=== PATIENT | male | born 1950 | race Asian ===

== ENCOUNTER 2017-12-05 03:36 | Inpatient (IN) | payer MEDICARE, OTHER ==
[~2017-12-05] VITALS: Ht 165.1 cm; Wt 64.9 kg
[2017-12-05] VITALS (7 sets, daily range): BP systolic 117–169; BP diastolic 73–99
[~2017-12-05 03:36] MED LIST: AMBIEN5 MG ORAL; ASCORBIC ACID500 MG ORAL; ASPIR 8181 MG ORAL; ATIVAN1 MG ORAL; ATORVASTATIN CA40 MG ORAL; BACTROBAN CR1 APPLIC TOPIC; BISACODYL5 MG RECTAL; CLEOCIN HCL300 MG PO; CLONIDINE HCL0.1 MG PO; FERROUS SULFAT325 MG ORAL; FLEET ENEMA133 ML RECTAL; HEPARIN SO5000 UNIT2 SUBQ; INSULIN CHARG5 UNITS SUBQ; LEVEMIR FL100 UNIT/1 SUBQ; LEVOTHYROXINE25 MCG ORAL; LISINOPRIL20 MG ORAL; LISINOPRIL5 MG ORAL; METOPROLOL TART25 MG ORAL; MILK OF MA400 MG/51 ORAL; MULTIPLE VITAM1 EAC5 PO; NITROGLYCERIN0.4 MG SL; NOVOLOG100 UNIT/3 SUBQ; NOVOLOG100 UNITS1 SQ; NYSTATIN100000 UN1 ORAL; TYLENOL EXTRA500 MG ORAL
--- NOTE | 2017-12-05 03:51 | Emergency Room Report ---
History of Present Illness General Chief Complaint: Chest Pain Source: Patient, Medical Record, EMS Present Illness HPI This is a 67-year-old male with multiple medical problem, residing in a [facility]. He presents with chief complaint of coffee-ground emesis 3 and also with chest pain. He does have a history of CAD and gastritis. Onset for last 3 hours. No fever chills. No diarrhea. Pain is 7 out of 10. Localized to the epigastric area. The demented better. Nothing made it worse. Allergies: Coded Allergies: AMPICILLIN (Verified Allergy, Unknown, 12/02/15) CODEINE (Verified Allergy, Unknown, 12/02/15) NSAIDS (NON-STEROIDAL ANTI-INFLAMMA (Verified Allergy, Unknown, 12/02/15) PEANUT (Verified Allergy, Unknown, 12/02/15) PENICILLINS (Verified Allergy, Unknown, 12/02/15) Patient History Past Medical History: see triage record, old chart reviewed, HTN, CAD, psych hx Past Surgical History: other Pertinent Family History: none Social History: Denies: smoking Immunizations: other Reviewed Nursing Documentation: PMH: Agreed; PSxH: Agreed Nursing Documentation-PMH Hx Cardiac Problems: Yes - HYPERLIPIDEMIA,cad Hx Hypertension: Yes Hx Pacemaker: No - HYPOTHYROIDISM Hx COPD: Yes Hx Diabetes: Yes Hx Cancer: No Hx Gastrointestinal Problems: No - pancreatitis,anemia Hx Neurological Problems: No Hx Cerebrovascular Accident: Yes - subdural Hx Head Trauma: Yes - diffuse traumtic brain injury, 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 Review of Systems Eye: Denies: eye pain, blurred vision ENT: Denies: ear pain, nose congestion, throat swelling Respiratory: Denies: cough, shortness of breath Cardiovascular: Reports: chest pain; Denies: palpitations Gastrointestinal: Reports: abdominal pain, nausea, vomiting, hematemesis; Denies: diarrhea Musculoskeletal: Denies: back pain, joint pain Skin: Denies: rash Neurological: Denies: headache, numbness Endocrine: Denies: increased thirst, increased urine Hematologic/Lymphatic: Denies: easy bruising All Other Systems: negative except mentioned in HPI Physical Exam Vital Signs Date Time Temp Pulse Resp B/P (MAP) Pulse Ox O2 Delivery O2 Flow Rate FiO2 12/05/17 03:33 98.4 80 16 146/84 98 Nasal Cannula 2.0 98.4 vitals normal Sp02 EP Interpretation: reviewed, normal General Appearance: well appearing, no apparent distress, alert Head: normocephalic, atraumatic Eyes: bilateral eye PERRL, bilateral eye EOMI ENT: hearing grossly normal, normal pharynx Neck: full range of motion, supple, no meningismus Respiratory: chest non-tender, lungs clear, normal breath sounds Cardiovascular #1: regular rate, rhythm, no murmur Gastrointestinal: normal bowel sounds, non tender, no mass, no organomegaly, no bruit, non-distended Musculoskeletal: back normal, normal range of motion Psychiatric: mood/affect normal Skin: warm/dry Medical Decision Making Diagnostic Impression: Primary Impression: Chest pain Qualified Codes: R07.9 - Chest pain, unspecified Additional Impression: UGI bleed ER Course Patient presents with coffee-ground emesis. Most likely secondary to upper GI bleed from gastritis. This is from previous admission. No evidence of perforation. Chest pain is most likely secondary to vomiting. EKG unremarkable. First set of troponin negative. We'll admit for further workup. I contacted Dr. Ramirez and Capo for admission. Lab Results Impression labs unremarkable EKG Diagnostic Results Rate: normal Rhythm: NSR ST Segments: other - baseline tremors ASA given to the pt in ED: No - secondary to upper GI bleeding and allergy to NSAIDs Rhythm Strip Diag. Results Rhythm Strip Time: 04:30 EP Interpretation: yes Rate: 77 Rhythm: NSR, no PVC's, no ectopy Chest X-Ray Diagnostic Results Chest X-Ray Diagnostic Results : Chest X-Ray Ordered: Yes # of Views/Limited/Complete: 1 View Indication: Chest Pain EP Interpretation: Yes Interpretation: no consolidation, no effusion, no pneumothorax, no acute cardiopulmonary disease Impression: No acute disease Electronically Signed by: Ej Duncan MD Last Vital Signs Date Time Temp Pulse Resp B/P (MAP) Pulse Ox O2 Delivery O2 Flow Rate FiO2 12/05/17 03:33 98.4 80 16 146/84 98 Nasal Cannula 2.0 98.4 Status: improved Disposition: ADMITTED INPATIENT Condition: Serious EJ DUNCAN M.D. Dec 05, 2017 03:51
[2017-12-05 03:58] LABS: BASOPHILS % (AUTO) 0.9 % (0.0-2.0); HEMATOCRIT 37.3 % (42.0-52.0); HEMOGLOBIN 12.1 G/DL (14.2-18.0); LYMPHOCYTES % (AUTO) 27.5 % (20.0-45.0); MEAN CORPUSCULAR VOLUME 83 FL (80-99); MONOCYTES % (AUTO) 9.2 % (1.0-10.0); NEUTROPHILS % (AUTO) 54.4 % (45.0-75.0); PLATELET COUNT 235 K/UL (150-450); RED BLOOD COUNT 4.51 M/UL (4.70-6.10); RED CELL DISTRIBUTION WIDTH 13.6 % (11.6-14.8); WHITE BLOOD COUNT 7.5 K/UL (4.8-10.8)
[2017-12-05] MEDS ORDERED: Morphine Sulfate 4mg/ml Inj (IV USE ONLY) IVP ONE (04:00)
[2017-12-05] MEDS ORDERED: Pantoprazole Inj IVP ONE (04:00)
[2017-12-05 04:09] LABS: ANION GAP 12 mmol/L (5-15); BLOOD UREA NITROGEN 24 mg/dL (7-18); CARBON DIOXIDE 29 MMOL/L (21-32); CHLORIDE 99 MMOL/L (98-107); CREATININE 1.4 MG/DL (0.55-1.30); POTASSIUM 4.1 MMOL/L (3.5-5.1); SODIUM 140 MMOL/L (136-145)
[2017-12-05 04:22] LABS: ALANINE AMINOTRANSFERASE 23 U/L (12-78); ALBUMIN 3.8 G/DL (3.4-5.0); ALBUMIN/GLOBULIN RATIO 0.7 (1.0-2.7); ALKALINE PHOSPHATASE 99 U/L (46-116); ASPARTATE AMINO TRANSFERASE 22 U/L (15-37); BILIRUBIN,TOTAL 0.3 MG/DL (0.2-1.0); CKMB 1.2 NG/ML (0.0-3.6); CREATINE KINASE 58 U/L (26-308)
[2017-12-05] MEDS ORDERED: RESTORIL7.5 MG ORAL (04:32)
[2017-12-05] MEDS ORDERED: KLONOPIN0.5 MG ORAL (04:32)
[2017-12-05] MEDS ORDERED: PANTOPRAZOLE SO40 MG ORAL (04:32)
[2017-12-05] MEDS ORDERED: ALBUTEROL2.5 MG/3 M INH (04:32)
[2017-12-05] MEDS ORDERED: COREG6.25 MG ORAL (04:32)
[2017-12-05] MEDS ORDERED: RISPERIDONE0.5 MG PO (04:35)
--- NOTE | 2017-12-05 05:47 | Diagnostic Imaging Report ---
EXAM: XR Chest, 1 View CLINICAL HISTORY: CP TECHNIQUE: Frontal view of the chest. COMPARISON: 04/05/16 FINDINGS: Lungs: See below. Pleural space: Unremarkable. No pneumothorax. Heart: Unremarkable. No cardiomegaly. Mediastinum: See below. Bones/joints: Sternal wires and mediastinal clips are again noted. Vascular coils over left upper lung zone are again noted. Osteopenia IMPRESSION: No acute findings.
[2017-12-05] MEDS ORDERED: Nitroglycerin Subl 0.4mg tab SL PRN (07:45)
[2017-12-05] MEDS ORDERED: Miralax 17gm pkt ORAL PRN (07:45)
[2017-12-05] MEDS ORDERED: Mylanta II UD 30ml ORAL PRN (07:45)
[2017-12-05] MEDS ORDERED: Morphine Sulfate 2mg/ml Inj(IV/IM USE ONLY) IVP PRN (08:00)
--- NOTE | 2017-12-05 08:03 | Consultation ---
History of Present Illness General Date patient seen: Dec 05, 2017 Time patient seen: 07:30 Chief Complaint: Chest Pain Referring physician: dr Ramirez Reason for Consultation: Chest pain, in hospital management Present Illness HPI 67 y/old male with PMH significant for CAD, HTN, DM, HLD, hypothyroidism, gastritis, [facility], was sent to emergency room for evaluation due to coffee-ground emesis and complaints of chest pain. upon evaluation patient denied fever or chills no diarrhea no blood in stool vital signs were stable no leukocytosis hemoglobin 12.1, hematocrit 37.3 troponin negative ECG weith NSR no acute ischemic changes glucose 120 BUN 24 creatinine 1.4 chest x-ray no acute cardiopulmonary pathology patient was admitted for further management with diagnosis of upper GI bleeding , chest pain Allergies: Coded Allergies: AMPICILLIN (Verified Allergy, Unknown, 12/02/15) CODEINE (Verified Allergy, Unknown, 12/02/15) NSAIDS (NON-STEROIDAL ANTI-INFLAMMA (Verified Allergy, Unknown, 12/02/15) PEANUT (Verified Allergy, Unknown, 12/02/15) PENICILLINS (Verified Allergy, Unknown, 12/02/15) Medication History Scheduled Ascorbic Acid* (Ascorbic Acid*), 500 MG ORAL DAILY, (Reported) Aspirin* (Aspir 81*), 81 MG ORAL DAILY, (Reported) Atorvastatin Calcium* (Atorvastatin Calcium*), 40 MG ORAL BEDTIME, (Reported) Bisacodyl* (Dulcolax*), 10 MG RECTAL DAILY, (Reported) Carvedilol (Coreg), 6.25 MG ORAL EVERY 12 HOURS, (Reported) Clindamycin Hcl (Cleocin Hcl), 300 MG PO Q6HR, (Reported) Clonazepam* (Klonopin*), 0.5 MG ORAL BID, (Reported) Clonidine Hcl (Clonidine Hcl), 0.1 MG PO Q6HR, (Reported) Ferrous Sulfate* (Ferrous Sulfate*), 325 MG ORAL DAILY, (Reported) Heparin Sod (Porcine) (Heparin Sodium*), 5,000 UNITS SUBQ EVERY 12 HOURS, ( Reported) Insulin Aspart* (Novolog*), 10 SUBQ AC, (Reported) Insulin Detemir (Levemir Flexpen), 18 SUBQ DAILY, (Reported) Insulin Human NPH (Novolin N), 26 UNITS SUBQ ACBREAKFAST, (Reported) Levothyroxine Sodium* (Levothyroxine Sodium*), 300 MCG ORAL DAILY, (Reported) Lisinopril (Lisinopril*), 10 MG ORAL DAILY, (Reported) Lisinopril (Lisinopril*), 10 MG ORAL BID, (Reported) Lorazepam* (Ativan*), 1 MG ORAL Q6HR, (Reported) Metoprolol Tartrate* (Metoprolol Tartrate*), 25 MG ORAL BID, (Reported) Multivitamin With Minerals (Multiple Vitamin), 1 EACH PO DAILY, (Reported) Mupirocin Calcium (Bactroban), 1 APPLIC TOPIC THREE TIMES A DAY, (Reported) Na Phos,M-B/Na Phos,Di-Ba* (Fleet Enema*), 133 ML RECTAL DAILY, (Reported) Nystatin* (Nystatin*), 5 ML ORAL FOUR TIMES A DAY, (Reported) Pantoprazole* (Pantoprazole*), 40 MG ORAL DAILY, (Reported) Risperidone (Risperidone), 0.5 MG PO BID, (Reported) Temazepam* (Restoril*), 7.5 MG ORAL BEDTIME, (Reported) Scheduled PRN Acetaminophen* (Tylenol Extra Strength*), 650 MG ORAL Q4HR PRN for Mild Pain/ Temp > 100.5, (Reported) Albuterol Sulfate* (Albuterol Sulfate Hhn*), 3 ML INH Q4H PRN for Shortness of Breath, (Reported) Insulin Aspart (Novolog Flexpen), SQ AC+HS PRN for Sliding Scale, (Reported) Insulin Human NPH (Novolin N), 10 UNITS SUBQ QPM PRN for Hyperglycemia, ( Reported) Magnesium Hydroxide* (Milk Of Magnesia*), 30 ML ORAL DAILY PRN for Constipation, (Reported) Zolpidem Tartrate* (Ambien*), 5 MG ORAL BEDTIME PRN for Insomnia, (Reported) Miscellaneous Medications Nitroglycerin (Nitroglycerin), 0.4 MG SL, (Reported) Patient History Healthcare decision maker Resuscitation status Advanced Directive on File Past Medical/Surgical History Past Medical/Surgical History: (1) Hyperlipidemia (2) CAD (coronary artery disease) (3) DM (diabetes mellitus) (4) HTN (hypertension) (5) Hypothyroidism Review of Systems Constitutional: Reports: weakness Eye: Reports: no symptoms ENT: Reports: no symptoms Respiratory: Reports: no symptoms Cardiovascular: Reports: see HPI Gastrointestinal: Reports: see HPI Genitourinary: Reports: no symptoms Musculoskeletal: Reports: muscle stiffness Skin: Reports: no symptoms Psychiatric: Reports: no symptoms Neurological: Reports: no symptoms Endocrine: Reports: other - diabetes Hematologic/Lymphatic: Reports: no symptoms ROS Narrative Patient able to complete only limited ROS Physical Exam General Appearance: no apparent distress, alert Lines, tubes and drains: peripheral HEENT: normocephalic, atraumatic, anicteric Neck: non-tender, supple Respiratory/Chest: lungs clear, no respiratory distress, no accessory muscle use Cardiovascular/Chest: normal peripheral pulses, normal rate, regular rhythm - SR on tele Abdomen: normal bowel sounds, non tender, soft Extremities: normal range of motion, no calf tenderness Neurologic: no motor/sensory deficits, alert, responsive Last 24 Hour Vital Signs Date Time Temp Pulse Resp B/P (MAP) Pulse Ox O2 Delivery O2 Flow Rate FiO2 12/05/17 06:27 86 12/05/17 06:13 97.9 87 20 158/93 (114) 97 97.9 12/05/17 06:05 97.3 84 14 169/85 100 Room Air 12/05/17 05:51 97.3 84 14 169/85 100 Room Air 97.3 12/05/17 04:16 84 13 Room Air 12/05/17 04:14 97.7 84 13 168/89 100 Room Air 97.7 12/05/17 03:33 98.4 80 16 146/84 98 Nasal Cannula 2.0 98.4 Intake and Output 12/04/17 12/05/17 19:00 07:00 Intake Total 2000 ml Output Total 400 ml Balance 1600 ml Intake IV Total 2000 ml Output Urine Total 400 ml Laboratory Tests Test 12/05/17 03:40 White Blood Count 7.5 K/UL (4.8-10.8) Red Blood Count 4.51 M/UL (4.70-6.10) L Hemoglobin 12.1 G/DL (14.2-18.0) L Hematocrit 37.3 % (42.0-52.0) L Mean Corpuscular Volume 83 FL (80-99) Mean Corpuscular Hemoglobin 26.8 PG (27.0-31.0) L Mean Corpuscular Hemoglobin Concent 32.4 G/DL (32.0-36.0) Red Cell Distribution Width 13.6 % (11.6-14.8) Platelet Count 235 K/UL (150-450) Mean Platelet Volume 6.2 FL (6.5-10.1) L Neutrophils (%) (Auto) 54.4 % (45.0-75.0) Lymphocytes (%) (Auto) 27.5 % (20.0-45.0) Monocytes (%) (Auto) 9.2 % (1.0-10.0) Eosinophils (%) (Auto) 8.0 % (0.0-3.0) H Basophils (%) (Auto) 0.9 % (0.0-2.0) Prothrombin Time 10.7 SEC (9.30-11.50) Prothromb Time International Ratio 1.0 (0.9-1.1) Activated Partial Thromboplast Time 30 SEC (23-33) Sodium Level 140 MMOL/L (136-145) Potassium Level 4.1 MMOL/L (3.5-5.1) Chloride Level 99 MMOL/L (98-107) Carbon Dioxide Level 29 MMOL/L (21-32) Anion Gap 12 mmol/L (5-15) Blood Urea Nitrogen 24 mg/dL (7-18) H Creatinine 1.4 MG/DL (0.55-1.30) H Estimat Glomerular Filtration Rate 50.9 mL/min (>60) Glucose Level 120 MG/DL (74-106) H Calcium Level 10.0 MG/DL (8.5-10.1) Total Bilirubin 0.3 MG/DL (0.2-1.0) Aspartate Amino Transf (AST/SGOT) 22 U/L (15-37) Alanine Aminotransferase (ALT/SGPT) 23 U/L (12-78) Alkaline Phosphatase 99 U/L (46-116) Total Creatine Kinase 58 U/L (26-308) Creatine Kinase MB 1.2 NG/ML (0.0-3.6) Creatine Kinase MB Relative Index 2.0 Troponin I 0.004 ng/mL (0.000-0.056) Total Protein 8.9 G/DL (6.4-8.2) H Albumin 3.8 G/DL (3.4-5.0) Globulin 5.1 g/dL Albumin/Globulin Ratio 0.7 (1.0-2.7) L Height (Feet): 5 Height (Inches): 6.00 Weight (Pounds): 145 Medications Current Medications Medications (Trade) Dose Ordered Sig/Stephanie Route PRN Reason Start Time Stop Time Status Last Admin Dose Admin Acetaminophen (Tylenol) 650 mg Q4H PRN ORAL fever 12/05/17 07:45 01/04/18 07:44 UNV Al Hydroxide/Mg Hydroxide (Mylanta II) 30 ml Q6H PRN ORAL dyspepsia 12/05/17 07:45 01/04/18 07:44 UNV Atorvastatin Calcium (Lipitor) 40 mg BEDTIME ORAL 12/05/17 21:00 01/04/18 20:59 UNV Carvedilol (Coreg) 6.25 mg EVERY 12 HOURS ORAL 12/05/17 09:00 01/04/18 08:59 UNV Dextrose (Dextrose 50%) STAT PRN IV Hypoglycemia 12/05/17 07:45 01/04/18 07:44 UNV Dextrose/Sodium Chloride 1,000 ml @ 75 mls/hr [id number] IV 12/05/17 07:35 01/04/18 07:34 Diphenhydramine HCl (Benadryl) 25 mg Q6H PRN ORAL Itching/Pruritis 12/05/17 07:45 01/04/18 07:44 UNV Insulin Aspart (NovoLOG) BEFORE MEALS AND HS SUBQ 12/05/17 11:30 01/04/18 11:29 UNV Levothyroxine Sodium (Synthroid) 300 mcg DAILY ORAL 12/05/17 09:00 01/04/18 08:59 UNV Lisinopril (Prinivil) 10 mg DAILY ORAL 12/05/17 09:00 01/04/18 08:59 UNV Metoprolol Tartrate (Lopressor) 25 mg BID ORAL 12/05/17 09:00 01/04/18 08:59 UNV Morphine Sulfate (Morphine Sulfate) 2 mg EVERY 4 HOURS PRN IVP severe Pain (Pain Scale 7-10) 12/05/17 07:45 12/12/17 07:44 UNV Nitroglycerin (Ntg) 0.4 mg Q5M X 3 DOSES PRN SL Prn Chest Pain 12/05/17 07:45 01/04/18 07:44 UNV Ondansetron HCl (Zofran) 4 mg Q6H PRN IVP Nausea & Vomiting 12/05/17 07:45 01/04/18 07:44 UNV Polyethylene Glycol (Miralax) 17 gm HSPRN PRN ORAL Constipation 12/05/17 07:45 01/04/18 07:44 UNV Temazepam (Restoril) 15 mg HSPRN PRN ORAL Insomnia 12/05/17 07:45 12/12/17 07:44 UNV Assessment/Plan Assessment/Plan ASSESSMENT chest pain ( in setting of CAD, HTN, DM) upper GI bleeding HTN DM CAD gastritis hypothyroidism hyperlipidemia mild anemia acute kidney injury vs CRI PLAN OF CARE tele serial troponin ECG ECHO cardio eval per PMD no ASA given upper GI bleeding continue with BB BP management with BB and MONTEZ pain management with Nitro prn continue statin, lipid panel in am BS management with SSI, HgA1c in am GI prophylaxis NPO IVF GI eval a/emetic prn monitor renal parameters, lytes, correct lytes prn, avoid nephrotoxic Venous Duplex BLE O2 titrate prn continue Synthroid ( very high dose), check TSH supportive care PT/OT case discussed and evaluated by supervising physician Esperanza Laws NP Dec 05, 2017 08:03
[2017-12-05] MEDS ORDERED: Metoprolol 25mg tab ORAL SCH (09:00)
[2017-12-05] MEDS: Pantoprazole Inj IVP SCH (09:43)
[2017-12-05] MEDS: D5 1/2NS 1,000 ML IV SCH ×2 (09:43→20:57)
[2017-12-05] MEDS: Lisinopril 10mg tab ORAL SCH (09:46)
[2017-12-05] MEDS: Carvedilol 6.25mg Tab ORAL SCH ×2 (09:46→20:58)
--- NOTE | 2017-12-05 10:00 | History and Physical Report ---
DATE OF ADMISSION: 12/05/2017 TIME: 9 a.m. CONSULTANTS: 1. Otto Scanlon M.D. 2. Zachary Ojeda M.D. 3. Yonis Steinberg M.D. 4. Miguelina Cassidy M.D. CHIEF COMPLAINT: Chest pain, upper GI bleed, and confusion. BRIEF HISTORY: This is a 67-year-old male from [facility] presented with above-mentioned chest pain for two days, substernal, sharp, intermittent. No loss of consciousness. No radiation. The patient came to [place], diagnosed with above an upper GI bleed and confusion and admitted to telemetry for further care. Currently, slightly confused in bed. No complaint. REVIEW OF SYSTEMS: Slight chest pain. Slight short of breath. No nausea, vomiting, or diarrhea. PAST MEDICAL HISTORY: Includes hypertension, diabetes, hypothyroid, COPD, and schizophrenia. PAST SURGICAL HISTORY: surgery. MEDICATIONS: Include Lipitor, NovoLog, Coreg, Synthroid, Zestril, Protonix, Tylenol, MiraLAX, Zofran, and Mylanta. ALLERGIES: Include ampicillin, codeine, NSAID, and penicillin. SOCIAL HISTORY: No smoking. No alcohol. No intravenous drug abuse. FAMILY HISTORY: Noncontributory. OBJECTIVE: GENERAL: Lethargic, likely slightly confused in bed, oriented x2, in no acute distress. VITAL SIGNS: Temperature is 97 degrees, pulse 83, respirations 20, and blood pressure 158/93. CARDIOVASCULAR: No murmur. LUNGS: Distant and clear. ABDOMEN: Bowel sounds positive. Nontender. Nondistended. EXTREMITIES: No cyanosis, clubbing, or edema. NEUROLOGIC: The patient moves all extremities, slightly weak. LABORATORY AND DIAGNOSTIC DATA: Hemoglobin 12.1, otherwise CBC is normal. BMP shows BUN and creatinine 24 and 1.4. Otherwise, BMP is normal. Troponin 0.004. INR is 1.0 and PTT is 30. ASSESSMENT: 1. Chest pain. 2. Upper GI bleed. 3. Anemia. 4. Schizophrenia. 5. Renal insufficiency. 6. Hypertension. 7. Diabetes. 8. Hypothyroid. 9. COPD. PLAN: 1. OT, PT, dietary followup. 2. Blood pressure, blood sugar control. 3. Pain control. 4. Cardiology workup, troponin q. 8h. x3 and EKG in a.m. 5. Resume home medications. 6. Transfer to psych if cleared with me. 7. We will continue to follow the patient. Wes Ramirez D.O. DR: DELICIA JOB#: [id number] CC:
--- NOTE | 2017-12-05 11:16 | General Progress Note ---
Progress Note Progress Note [id number] full consult dictated Ailyn Caputo MD Dec 05, 2017 11:16
[2017-12-05] MEDS ORDERED: Haloperidol 5mg/ml Inj IM PRN (12:00)
[2017-12-05] MEDS: NovoLOG Insulin Flexpen SUBQ SCH ×3 (12:03→21:00)
--- NOTE | 2017-12-05 14:00 | Consultation ---
DATE OF CONSULTATION: 12/05/2017 NEPHROLOGY CONSULTATION CONSULTING PHYSICIAN: Ailyn Caputo M.D. REFERRING PHYSICIAN: Wes Ramirez D.O. REASON FOR CONSULTATION: Acute renal failure. HISTORY OF PRESENT ILLNESS: The patient is a 67-year-old male with past medical history significant for history of diabetes, hypertension, hypothyroidism, history of COPD, and schizophrenia, who was transferred from the senior living to emergency room for evaluation of coffee-ground emesis. In the ER, the patient found to have an acute worsening of the kidney function, was admitted in the hospital. I was called for management of renal disease and electrolyte imbalance. PAST MEDICAL HISTORY: Includin. Hypertension. 2. Diabetes. 3. COPD. 4. Schizophrenia. 5. Hypothyroidism. 6. Dyslipidemia. HOME MEDICATIONS: Includin. Ascorbic acid 500 mg daily. 2. Aspirin 81 mg p.o. daily. 3. Atorvastatin 40 mg p.o. daily. 4. Carvedilol 6.25 mg daily. 5. Klonopin 0.5 mg p.o. daily. 6. Insulin sliding scale. 7. Lisinopril 10 mg daily. 8. Metoprolol 25 mg p.o. b.i.d. 9. MVI one tablet p.o. daily. 10. Nystatin 5 mL swish and swallow. 11. Protonix 40 mg daily. 12. Risperdal 0.5 mg b.i.d. 13. Restoril 7.5 mg at bedtime. 14. Tylenol 650 mg q.6 h. p.r.n. pain. 15. Albuterol and Atrovent p.r.n. shortness of breath. 16. Magnesium oxide p.r.n. constipation. 17. Ambien 5 mg p.o. daily. FAMILY HISTORY: Noncontributory. PAST SURGICAL HISTORY: None. REVIEW OF SYSTEMS: GENERAL: He complained of generalized weakness. Denies any fever, chills, or night sweats. HEAD AND NECK: Denies any dysphagia, odynophagia, blurry vision, headache, or neck stiffness. PULMONARY: No shortness of breath. No cough or sputum, CARDIOVASCULAR: Denies any chest pain or palpitation. GASTROINTESTINAL: Complained of nausea, coffee-ground emesis. No melena, hematemesis, or hematochezia. GENITOURINARY: No dysuria. No frequency. No hematuria. PHYSICAL EXAMINATION: VITAL SIGNS: The patient has a temperature of 97, pulse rate of 87, respiratory rate of 20, and blood pressure of 158/90. GENERAL: He is well-developed, well-nourished male, in no acute distress. HEAD AND NECK: No JVP. No LAD. No thyromegaly. Extraocular movement intact. Pupils are reactive to light and accommodation. LUNGS: Clear to auscultation. CARDIAC: Regular rate and rhythm. S1 and S2. No murmur. No rub. ABDOMEN: Soft, nontender, and nondistended. EXTREMITIES: No edema. No clubbing. No cyanosis. LABORATORY AND DIAGNOSTIC DATA: Chemistry reveal sodium 140, potassium 4.1, chloride 99, bicarb 29, BUN of 24, creatinine of 1.4, glucose of 120. AST of 22, ALT of 23, alkaline phosphatase of 99. Total protein of 8.9. Albumin of 3.8. CBC revealed WBC count of 7.1, hemoglobin of 12.1, hematocrit of 37, and platelet count of 235. INR within normal limits. No UA. ASSESSMENT: 1. Acute versus chronic renal failure, the etiology of acute renal failure, unstable hemodynamics. 2. 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 3. Uncontrolled diabetes. 4. GI bleed. 5. Hypertension, which is uncontrolled at this time. PLAN: The patient is to obtain UA. Check the random urine protein creatinine ratio to calculate the proteinuria. Check the urine sodium and creatinine to calculate fractional excretion of sodium. So, the patient on IV fluids. I would control the blood pressure, goal of blood pressure left arm 130/75. Again, I would like to thank, Dr. Wes Ramirez, for allowing me to participate in the care of this patient. Ailyn Caputo M.D. DR: ARGENIS JOB#: [id number] CC:
--- NOTE | 2017-12-05 15:00 | Consultation ---
DATE OF CONSULTATION: 12/05/2017 CONSULTING PHYSICIAN: Zachary Ojeda M.D. CHIEF COMPLAINT: Coffee-ground emesis. HISTORY OF PRESENT ILLNESS: This is a very pleasant 67-year-old male with multiple medical problems, which I will dictate in a second, was admitted to the hospital with chest pain and also coffee-ground emesis. PAST MEDICAL HISTORY: 1. Coronary artery disease. 2. Hypertension. 3. Diabetes. 4. Hypothyroidism. 5. Gastritis. ALLERGIES: To ampicillin, codeine, NSAIDs, penicillin, and peanuts. MEDICATIONS: Please see medication reconciliation list. SOCIAL HISTORY: Currently, lives in a [facility]. No history of tobacco, alcohol, or illicit drug abuse. FAMILY HISTORY: Noncontributory. REVIEW OF SYSTEMS: Unable to obtain. PHYSICAL EXAMINATION: VITAL SIGNS: Temperature 97.9, pulse 87, respirations 20, and blood pressure is 139/82. HEENT: Normocephalic and atraumatic. No scleral icterus. NECK: Supple. No adenopathy. CARDIOVASCULAR: Regular rhythm. Plus S1 and S2. LUNGS: Decreased breath sounds bilaterally based on supine exam. ABDOMEN: Soft, nontender. No rebound. No guarding. EXTREMITIES: No cyanosis, clubbing, or edema. LABORATORY DATA: White count 7.5, hemoglobin 12, hematocrit 37, and platelet count is 235,000. Sodium 140, potassium 4.1, BUN is 24, creatinine is 1.2, and glucose is 120. ASSESSMENT AND PLAN: This is a 67-year-old male with possible coffee-ground emesis with hemoglobin of 12 without any obvious active overt GI bleeding. Given the patient may has coronary artery disease, came also the chest pain needs to be evaluated by Cardiology before any endoscopic procedure. Meanwhile, we are going to order a swallow evaluation. Put him on pureed diet with inadequate until the swallow evaluation is done. Send the stool for OB. Start the patient on PPI. We will order CBC for tomorrow and watch him closely. Endoscopy will be done if needed and is cleared by Cardiology. I want to thank Dr. Wes Ramirez, for this kind referral. Zachary Ojeda M.D. DR: YOVANA JOB#: [id number] CC: Wes Ramirez D.O.
[2017-12-05] MEDS ORDERED: LORazepam 1mg tab ORAL PRN (16:15)
[2017-12-05] MEDS: Atorvastatin 20mg tab ORAL SCH (20:59)
[2017-12-06] VITALS (7 sets, daily range): BP systolic 110–144; BP diastolic 58–73
[2017-12-06 04:24] LABS: APPEARANCE,URINE CLEAR; BILIRUBIN, URINE NEGATIVE (NEGATIVE); GLUCOSE, URINE (UA) 3+ (NEGATIVE); KETONES,URINE NEGATIVE (NEGATIVE); LEUKOCYTE ESTERASE ,URINE NEGATIVE (NEGATIVE); NITRITE,URINE NEGATIVE (NEGATIVE); PH,URINE 7 (4.5-8.0); PROTEIN,URINE 1+ (NEGATIVE); UROBILINOGEN,URINE 1 MG/DL (0.0-1.0)
[2017-12-06 04:26] LABS: COLOR,URINE YELLOW
[2017-12-06 05:56] LABS: BASOPHILS % (AUTO) 0.7 % (0.0-2.0); EOSINOPHILS % (AUTO) 7.9 % (0.0-3.0); HEMATOCRIT 30.6 % (42.0-52.0); HEMOGLOBIN 10.1 G/DL (14.2-18.0); LYMPHOCYTES % (AUTO) 30.8 % (20.0-45.0); MEAN CORPUSCULAR VOLUME 82 FL (80-99); NEUTROPHILS % (AUTO) 51.5 % (45.0-75.0); PLATELET COUNT 191 K/UL (150-450); RED BLOOD COUNT 3.71 M/UL (4.70-6.10); RED CELL DISTRIBUTION WIDTH 13.6 % (11.6-14.8); WHITE BLOOD COUNT 6.2 K/UL (4.8-10.8)
[2017-12-06] MEDS: NovoLOG Insulin Flexpen SUBQ SCH ×4 (06:06→21:10)
[2017-12-06 06:08] LABS: INR 1.1 (0.9-1.1)
[2017-12-06 06:22] LABS: CARBON DIOXIDE 26 MMOL/L (21-32); CHLORIDE 103 MMOL/L (98-107); POTASSIUM 3.9 MMOL/L (3.5-5.1); SODIUM 139 MMOL/L (136-145)
[2017-12-06 06:23] LABS: ALANINE AMINOTRANSFERASE 15 U/L (12-78); ALBUMIN 3.1 G/DL (3.4-5.0); ALBUMIN/GLOBULIN RATIO 0.8 (1.0-2.7); ALKALINE PHOSPHATASE 80 U/L (46-116); AMYLASE 86 U/L (25-115); ANION GAP 10 mmol/L (5-15); ASPARTATE AMINO TRANSFERASE 23 U/L (15-37); BILIRUBIN,TOTAL 0.3 MG/DL (0.2-1.0); BLOOD UREA NITROGEN 15 mg/dL (7-18); CALCIUM 8.8 MG/DL (8.5-10.1); CHOLESTEROL 213 MG/DL (< 200); CREATININE 1.1 MG/DL (0.55-1.30); HDL CHOLESTEROL 41 MG/DL (40-60); TRIGLYCERIDES 82 MG/DL (30-150)
--- NOTE | 2017-12-06 07:15 | Consultation ---
DATE OF CONSULTATION: 12/06/2017 CONSULTING PHYSICIAN: Miguelina Cassidy M.D. HISTORY OF PRESENT ILLNESS: This is a 67-year-old patient from [facility]. This patient came in due to chest pain, substernal, sharp, intermittent chest pain, but since he has been in the unit, he has been having psychomotor agitation, irritability, and mood lability, worsened by stress of his medical illness. That is why, his attending physician has requested daily psychiatric consultation. MEDICAL HISTORY: Includes diabetes, hypothyroidism, hypertension, COPD, and hyperlipidemia. SOCIAL HISTORY: He lives in [facility]. Financially supported by [employer] and Medicare. ALLERGIES: To ampicillin, penicillin, codeine, and NSAIDs. SUBSTANCE ABUSE HISTORY: Denies drug and alcohol use. FAMILY PSYCHIATRIC HISTORY: Denies. DEVELOPMENTAL PROBLEMS: Denies. STRENGTH: Moderately better and has a place to live. WEAKNESSES: He is impulsive. No support system. MENTAL STATUS EXAMINATION: This is a 67-year-old male. Appearance is disheveled. Attitude, irritable and agitated. Affect, guarded and restricted. Intellect poor. Mood depressed and anxious. Motor activity, psychomotor agitation. Attention span is poor. Orientation x2. Speech is pressured. Thought process, disorganized and illogical. Insight and judgment is poor. As far as the short-term memory actually 2/3 with two-word recall, reveals poor short-term memory. Long-term memory is poor and he does not remember long-term events such as high school he went to. DIAGNOSIS: Paranoid schizophrenia with acute exacerbation, rule out dementia with psychosis, rule out major depression with psychotic features. PLAN: My plan for this patient is I am going to treat this patient with a psychotropic medication regimen consisting of Risperdal at a dose of 0.5 mg twice a day to reduce agitation and psychosis and then also for anxiety I am also going to add Ativan 1 mg every six hours p.r.n. anxiety and agitation. Encouraged him to interact appropriately with staff and other patients and provided 20 minutes of cognitive behavior therapy. During that 20-minute cognitive therapy session, identifies automatic negative thoughts and help him to convert those to small positive thoughts. The patient is seen and assessed at the bedside. Chart reviewed. Discussed with staff. A 20 minutes of cognitive behavior therapy provided. Miguelina Cassidy M.D. DR: MARTIN JOB#: [id number] CC:
[2017-12-06] MEDS: Pantoprazole Inj IVP SCH (08:06)
[2017-12-06] MEDS: Lisinopril 10mg tab ORAL SCH (08:08)
[2017-12-06] MEDS: Carvedilol 6.25mg Tab ORAL SCH ×2 (08:08→20:49)
--- NOTE | 2017-12-06 08:17 | General Progress Note ---
Assessment/Plan Problem List: (1) DM (diabetes mellitus) ICD Codes: E11.9 - Type 2 diabetes mellitus without complications SNOMED: 84284060 (2) HTN (hypertension) ICD Codes: I10 - Essential (primary) hypertension SNOMED: 83235381 (3) Hypothyroidism ICD Codes: E03.9 - Hypothyroidism, unspecified SNOMED: 28145891 (4) CAD (coronary artery disease) ICD Codes: I25.10 - Atherosclerotic heart disease of [place] coronary artery without angina pectoris SNOMED: 29878973 (5) Chest pain ICD Codes: R07.9 - Chest pain, unspecified SNOMED: 57527717 Qualifiers: Qualified Codes: R07.9 - Chest pain, unspecified (6) UGI bleed ICD Codes: K92.2 - Gastrointestinal hemorrhage, unspecified SNOMED: 51631658 (7) Anemia ICD Codes: D64.9 - Anemia, unspecified SNOMED: 367445087 Assessment/Plan pending cardiac clearance for EGD ppi stool ob pending fu labs free T4 Subjective ROS Limited/Unobtainable: No Allergies: Coded Allergies: AMPICILLIN (Verified Allergy, Unknown, 12/02/15) CODEINE (Verified Allergy, Unknown, 12/02/15) NSAIDS (NON-STEROIDAL ANTI-INFLAMMA (Verified Allergy, Unknown, 12/02/15) PEANUT (Verified Allergy, Unknown, 12/02/15) PENICILLINS (Verified Allergy, Unknown, 12/02/15) Objective Last 24 Hour Vital Signs Date Time Temp Pulse Resp B/P (MAP) Pulse Ox O2 Delivery O2 Flow Rate FiO2 12/06/17 08:08 117/62 12/06/17 08:08 82 117/62 12/06/17 04:00 97.5 82 18 110/73 (85) 96 97.5 12/06/17 03:53 74 12/06/17 00:00 98.2 70 20 111/58 (75) 98 98.2 12/05/17 23:50 69 12/05/17 21:00 Room Air 12/05/17 20:58 77 149/90 12/05/17 20:00 97.7 77 12 149/90 (109) 98 97.7 12/05/17 16:00 71 12/05/17 16:00 97.5 80 18 117/73 (88) 97 97.5 12/05/17 12:00 97.6 81 18 155/92 (113) 97 97.6 12/05/17 12:00 84 12/05/17 09:46 139/82 12/05/17 09:46 78 139/82 12/05/17 09:00 Room Air 12/05/17 08:30 Room Air Intake and Output 12/05/17 12/06/17 19:00 07:00 Intake Total 825 ml Balance 825 ml Intake Oral 0 ml IV Total 825 ml # Voids 2 Laboratory Tests 12/05/17 08:50: Troponin I 0.008 12/06/17 04:00: Urine Color Yellow, Urine Appearance Clear, Urine pH 7, Urine Specific [place] 1.010, Urine Protein 1+H, Urine Glucose (UA) 3+H, Urine Ketones Negative, Urine Occult Blood Negative, Urine Nitrite Negative, Urine Bilirubin Negative, Urine Urobilinogen 1H, Urine Leukocyte Esterase Negative, Urine RBC 0-2H, Urine WBC 0- 2, Urine Squamous Epithelial Cells Occasional, Urine Bacteria Occasional, Urine Random Creatinine [Pending], Urine Random Microalbumin [Pending], Urine Random Total Protein 15H, Urine Random Sodium 103, Urine Creatinine 93.8, Urine Microalbumin/Creatinine Ratio [Pending] 12/06/17 05:05: White Blood Count 6.2, Red Blood Count 3.71L, Hemoglobin 10.1L, Hematocrit 30.6L , Mean Corpuscular Volume 82, Mean Corpuscular Hemoglobin 27.3, Mean Corpuscular Hemoglobin Concent 33.1, Red Cell Distribution Width 13.6, Platelet Count 191, Mean Platelet Volume 6.5, Neutrophils (%) (Auto) 51.5, Lymphocytes (% ) (Auto) 30.8, Monocytes (%) (Auto) 9.0, Eosinophils (%) (Auto) 7.9H, Basophils (%) (Auto) 0.7, Prothrombin Time 11.4, Prothromb Time International Ratio 1.1, Activated Partial Thromboplast Time 28, Sodium Level 139, Potassium Level 3.9, Chloride Level 103, Carbon Dioxide Level 26, Anion Gap 10, Blood Urea Nitrogen 15, Creatinine 1.1, Estimat Glomerular Filtration Rate > 60, Glucose Level 178H , Hemoglobin A1c 9.8H, Calcium Level 8.8, Total Bilirubin 0.3, Aspartate Amino Transf (AST/SGOT) 23, Alanine Aminotransferase (ALT/SGPT) 15, Alkaline Phosphatase 80, Total Protein 6.8, Albumin 3.1L, Globulin 3.7, Albumin/Globulin Ratio 0.8L, Triglycerides Level 82, Cholesterol Level 213H, LDL Cholesterol 162H , HDL Cholesterol 41, Cholesterol/HDL Ratio 5.2H, Amylase Level 86, Lipase 77, Thyroid Stimulating Hormone (TSH) 7.128H Height (Feet): 5 Height (Inches): 6.00 Weight (Pounds): 145 General Appearance: lethargic EENT: normal ENT inspection Neck: supple Cardiovascular: normal rate Respiratory/Chest: decreased breath sounds Abdomen: normal bowel sounds, non tender, soft Extremities: non-tender Zachary Ojeda MD Dec 06, 2017 08:17
[2017-12-06] MEDS: Docusate 100mg cap ORAL SCH ×2 (08:51→17:11)
[2017-12-06] MEDS ORDERED: Albuterol/Ipratropium 3ml neb HHN PRN ×2 (10:15→21:46)
--- NOTE | 2017-12-06 10:25 | Pulmonology Progress Note ---
Assessment/Plan Assessment/Plan ASSESSMENT chest pain ( in setting of CAD, HTN, DM) upper GI bleeding HTN DM CAD gastritis hypothyroidism hyperlipidemia anemia acute kidney injury -resolved paranoid schizophrenia with acute exacerbation, hx of traumatic brain injury PLAN OF CARE tele serial troponin negative ECG no acute ischemic changes , pt r/o for acute [place] ECHO with pEF cardio eval per PMD no ASA given upper GI bleeding continue with BB BP management with BB and MONTEZ, optimize as needed pain management with Nitro prn continue statin, lipid panel with elevated TC and LDL, reinforced compliance with medications BS management with SSI, HgA1c -9.8 not at goal, add Levemir GI prophylaxis swallow eval IVF GI follows monitor HH with goal to keep Hgb above 7, HH with trend down, stool OB a/emetic prn EGD after cardiac clearance cardio eval as per PMD discretion monitor renal parameters, lytes, correct lytes prn, avoid nephrotoxic WEN resolved, possibly due to emesis nephro follows Venous Duplex BLE O2 titrate prn, HHN prn continue Synthroid ( very high dose), TSH elevated, won't increase dose ( already very high), repeat TSH soon supportive care PT/OT psych follows, psych meds optimized as per psych recs transfer to CT case discussed and evaluated by supervising physician : Subjective Allergies: Coded Allergies: AMPICILLIN (Verified Allergy, Unknown, 12/02/15) CODEINE (Verified Allergy, Unknown, 12/02/15) NSAIDS (NON-STEROIDAL ANTI-INFLAMMA (Verified Allergy, Unknown, 12/02/15) PEANUT (Verified Allergy, Unknown, 12/02/15) PENICILLINS (Verified Allergy, Unknown, 12/02/15) Subjective HH with trend down today seen and evaluated by GI denies chest pain, SOB Objective Last 24 Hour Vital Signs Date Time Temp Pulse Resp B/P (MAP) Pulse Ox O2 Delivery O2 Flow Rate FiO2 12/06/17 09:00 Room Air 12/06/17 08:08 117/62 12/06/17 08:08 82 117/62 12/06/17 08:00 97.6 81 18 117/62 (80) 96 97.6 12/06/17 08:00 80 12/06/17 04:00 97.5 82 18 110/73 (85) 96 97.5 12/06/17 03:53 74 12/06/17 00:00 98.2 70 20 111/58 (75) 98 98.2 12/05/17 23:50 69 12/05/17 21:00 Room Air 12/05/17 20:58 77 149/90 12/05/17 20:00 97.7 77 12 149/90 (109) 98 97.7 12/05/17 16:00 71 12/05/17 16:00 97.5 80 18 117/73 (88) 97 97.5 12/05/17 12:00 97.6 81 18 155/92 (113) 97 97.6 12/05/17 12:00 84 Intake and Output 12/05/17 12/06/17 19:00 07:00 Intake Total 825 ml Balance 825 ml Intake Oral 0 ml IV Total 825 ml # Voids 2 Objective General Appearance: no apparent distress, alert Lines, tubes and drains: peripheral HEENT: normocephalic, atraumatic, anicteric Neck: non-tender, supple Respiratory/Chest: lungs clear, no respiratory distress, no accessory muscle use Cardiovascular/Chest: normal peripheral pulses, normal rate, regular rhythm - SR on tele Abdomen: normal bowel sounds, non tender, soft Extremities: normal range of motion, no calf tenderness Neurologic: alert, responsive, moves all extremities Laboratory Tests 12/06/17 04:00: Urine Color Yellow, Urine Appearance Clear, Urine pH 7, Urine Specific [place] 1.010, Urine Protein 1+H, Urine Glucose (UA) 3+H, Urine Ketones Negative, Urine Occult Blood Negative, Urine Nitrite Negative, Urine Bilirubin Negative, Urine Urobilinogen 1H, Urine Leukocyte Esterase Negative, Urine RBC 0-2H, Urine WBC 0- 2, Urine Squamous Epithelial Cells Occasional, Urine Bacteria Occasional, Urine Random Creatinine [Pending], Urine Random Microalbumin [Pending], Urine Random Total Protein 15H, Urine Random Sodium 103, Urine Creatinine 93.8, Urine Microalbumin/Creatinine Ratio [Pending] 12/06/17 05:05: White Blood Count 6.2, Red Blood Count 3.71L, Hemoglobin 10.1L, Hematocrit 30.6L , Mean Corpuscular Volume 82, Mean Corpuscular Hemoglobin 27.3, Mean Corpuscular Hemoglobin Concent 33.1, Red Cell Distribution Width 13.6, Platelet Count 191, Mean Platelet Volume 6.5, Neutrophils (%) (Auto) 51.5, Lymphocytes (% ) (Auto) 30.8, Monocytes (%) (Auto) 9.0, Eosinophils (%) (Auto) 7.9H, Basophils (%) (Auto) 0.7, Prothrombin Time 11.4, Prothromb Time International Ratio 1.1, Activated Partial Thromboplast Time 28, Sodium Level 139, Potassium Level 3.9, Chloride Level 103, Carbon Dioxide Level 26, Anion Gap 10, Blood Urea Nitrogen 15, Creatinine 1.1, Estimat Glomerular Filtration Rate > 60, Glucose Level 178H , Hemoglobin A1c 9.8H, Calcium Level 8.8, Total Bilirubin 0.3, Aspartate Amino Transf (AST/SGOT) 23, Alanine Aminotransferase (ALT/SGPT) 15, Alkaline Phosphatase 80, Total Protein 6.8, Albumin 3.1L, Globulin 3.7, Albumin/Globulin Ratio 0.8L, Triglycerides Level 82, Cholesterol Level 213H, LDL Cholesterol 162H , HDL Cholesterol 41, Cholesterol/HDL Ratio 5.2H, Amylase Level 86, Lipase 77, Thyroid Stimulating Hormone (TSH) 7.128H Current Medications Medications (Trade) Dose Ordered Sig/Stephanie Route PRN Reason Start Time Stop Time Status Last Admin Dose Admin Acetaminophen (Tylenol) 650 mg Q4H PRN ORAL fever 12/05/17 07:45 01/04/18 07:44 Al Hydroxide/Mg Hydroxide (Mylanta II) 30 ml Q6H PRN ORAL dyspepsia 12/05/17 07:45 01/04/18 07:44 Atorvastatin Calcium (Lipitor) 40 mg BEDTIME ORAL 12/05/17 21:00 01/04/18 20:59 12/05/17 20:59 Carvedilol (Coreg) 6.25 mg EVERY 12 HOURS ORAL 12/05/17 09:00 01/04/18 08:59 12/06/17 08:08 Clonidine HCl (Catapres Tab) 0.1 mg Q6H PRN ORAL sbp above 160 12/05/17 08:00 01/04/18 07:59 Dextrose (Dextrose 50%) 25 ml STAT PRN IV Hypoglycemia 12/05/17 07:45 01/04/18 07:44 Dextrose (Dextrose 50%) 50 ml STAT PRN IV Hypoglycemia 12/05/17 08:00 01/04/18 07:59 Diphenhydramine HCl (Benadryl) 25 mg Q6H PRN ORAL Itching/Pruritis 12/05/17 07:45 01/04/18 07:44 Docusate Sodium (Colace) 100 mg TWICE A DAY ORAL 12/06/17 09:00 01/05/18 08:59 12/06/17 08:51 Haloperidol Lactate (Haldol) 2 mg Q2H PRN IM Agitation 12/05/17 12:00 01/04/18 11:59 12/05/17 12:02 Insulin Aspart (NovoLOG) BEFORE MEALS AND HS SUBQ 12/05/17 11:30 01/04/18 11:29 12/06/17 06:06 Levothyroxine Sodium (Synthroid) 300 mcg DAILY ORAL 12/05/17 09:00 01/04/18 08:59 12/06/17 08:07 Lisinopril (Zestril) 10 mg DAILY ORAL 12/05/17 09:00 01/04/18 08:59 12/06/17 08:08 Lorazepam (Ativan) 1 mg Q6H PRN ORAL For Anxiety 12/05/17 16:15 12/12/17 16:14 Morphine Sulfate (Morphine Sulfate) 2 mg Q4H PRN IVP severe Pain (Pain Scale 7-10) 12/05/17 08:00 12/12/17 07:59 12/05/17 22:59 Nitroglycerin (Ntg) 0.4 mg Q5M X 3 DOSES PRN SL Prn Chest Pain 12/05/17 07:45 01/04/18 07:44 Ondansetron HCl (Zofran) 4 mg Q6H PRN IVP Nausea & Vomiting 12/05/17 07:45 01/04/18 07:44 Pantoprazole (Protonix) 40 mg DAILY IVP 12/05/17 09:00 01/04/18 08:59 12/06/17 08:06 Polyethylene Glycol (Miralax) 17 gm HSPRN PRN ORAL Constipation 12/05/17 07:45 01/04/18 07:44 Risperidone (RisperDAL) 0.5 mg BID ORAL 12/05/17 18:00 01/04/18 17:59 12/06/17 08:07 Temazepam (Restoril) 15 mg HSPRN PRN ORAL Insomnia 12/05/17 07:45 12/12/17 07:44 Esperanza Laws NP Dec 06, 2017 10:25
[2017-12-06] MEDS ORDERED: Levemir Flexpen SUBQ SCH (12:00)
--- NOTE | 2017-12-06 14:45 | General Progress Note ---
Assessment/Plan Problem List: (1) Diabetes mellitus ICD Codes: E11.9 - Type 2 diabetes mellitus without complications SNOMED: 77671009 (2) Hyperglycemia ICD Codes: R73.9 - Hyperglycemia, unspecified SNOMED: 57547600 (3) UGI bleed ICD Codes: K92.2 - Gastrointestinal hemorrhage, unspecified SNOMED: 06764876 (4) CAD (coronary artery disease) ICD Codes: I25.10 - Atherosclerotic heart disease of [place] coronary artery without angina pectoris SNOMED: 95131543 (5) Hyperlipidemia ICD Codes: E78.5 - Hyperlipidemia, unspecified SNOMED: 10944849 (6) HTN (hypertension) ICD Codes: I10 - Essential (primary) hypertension SNOMED: 80675335 (7) Chest pain ICD Codes: R07.9 - Chest pain, unspecified SNOMED: 84863152 Qualifiers: Qualified Codes: R07.9 - Chest pain, unspecified Status: progressing Assessment/Plan no bleeding today atypical chest pain afebrile cad htn dm afebrile reviewed chart and labs Subjective ROS Limited/Unobtainable: Yes Allergies: Coded Allergies: AMPICILLIN (Verified Allergy, Unknown, 12/02/15) CODEINE (Verified Allergy, Unknown, 12/02/15) NSAIDS (NON-STEROIDAL ANTI-INFLAMMA (Verified Allergy, Unknown, 12/02/15) PEANUT (Verified Allergy, Unknown, 12/02/15) PENICILLINS (Verified Allergy, Unknown, 12/02/15) Objective Last 24 Hour Vital Signs Date Time Temp Pulse Resp B/P (MAP) Pulse Ox O2 Delivery O2 Flow Rate FiO2 12/06/17 09:00 Room Air 12/06/17 08:08 117/62 12/06/17 08:08 82 117/62 12/06/17 08:00 97.6 81 18 117/62 (80) 96 97.6 12/06/17 08:00 80 12/06/17 04:00 97.5 82 18 110/73 (85) 96 97.5 12/06/17 03:53 74 12/06/17 00:00 98.2 70 20 111/58 (75) 98 98.2 12/05/17 23:50 69 12/05/17 21:00 Room Air 12/05/17 20:58 77 149/90 8/18/18 20:00 97.7 77 12 149/90 (109) 98 97.7 12/05/17 16:00 71 12/05/17 16:00 97.5 80 18 117/73 (88) 97 97.5 Intake and Output 12/05/17 12/06/17 19:00 07:00 Intake Total 825 ml Balance 825 ml Intake Oral 0 ml IV Total 825 ml # Voids 2 Laboratory Tests 12/06/17 04:00: Urine Color Yellow, Urine Appearance Clear, Urine pH 7, Urine Specific [place] 1.010, Urine Protein 1+H, Urine Glucose (UA) 3+H, Urine Ketones Negative, Urine Occult Blood Negative, Urine Nitrite Negative, Urine Bilirubin Negative, Urine Urobilinogen 1H, Urine Leukocyte Esterase Negative, Urine RBC 0-2H, Urine WBC 0- 2, Urine Squamous Epithelial Cells Occasional, Urine Bacteria Occasional, Urine Random Creatinine [Pending], Urine Random Microalbumin [Pending], Urine Random Total Protein 15H, Urine Random Sodium 103, Urine Creatinine 93.8, Urine Microalbumin/Creatinine Ratio [Pending] 12/06/17 05:05: White Blood Count 6.2, Red Blood Count 3.71L, Hemoglobin 10.1L, Hematocrit 30.6L , Mean Corpuscular Volume 82, Mean Corpuscular Hemoglobin 27.3, Mean Corpuscular Hemoglobin Concent 33.1, Red Cell Distribution Width 13.6, Platelet Count 191, Mean Platelet Volume 6.5, Neutrophils (%) (Auto) 51.5, Lymphocytes (% ) (Auto) 30.8, Monocytes (%) (Auto) 9.0, Eosinophils (%) (Auto) 7.9H, Basophils (%) (Auto) 0.7, Prothrombin Time 11.4, Prothromb Time International Ratio 1.1, Activated Partial Thromboplast Time 28, Sodium Level 139, Potassium Level 3.9, Chloride Level 103, Carbon Dioxide Level 26, Anion Gap 10, Blood Urea Nitrogen 15, Creatinine 1.1, Estimat Glomerular Filtration Rate > 60, Glucose Level 178H , Hemoglobin A1c 9.8H, Calcium Level 8.8, Total Bilirubin 0.3, Aspartate Amino Transf (AST/SGOT) 23, Alanine Aminotransferase (ALT/SGPT) 15, Alkaline Phosphatase 80, Total Protein 6.8, Albumin 3.1L, Globulin 3.7, Albumin/Globulin Ratio 0.8L, Triglycerides Level 82, Cholesterol Level 213H, LDL Cholesterol 162H , HDL Cholesterol 41, Cholesterol/HDL Ratio 5.2H, Amylase Level 86, Lipase 77, Thyroid Stimulating Hormone (TSH) 7.128H Height (Feet): 5 Height (Inches): 6.00 Weight (Pounds): 145 Cardiovascular: normal rate Respiratory/Chest: lungs clear Will Ghosh MD Dec 06, 2017 14:45
[2017-12-06] MEDS: Atorvastatin 20mg tab ORAL SCH (20:49)
[2017-12-06] MEDS ORDERED: Nitroglycerin Subl 0.4mg tab SL PRN (21:30)
[2017-12-06] MEDS ORDERED: Mylanta II UD 30ml ORAL PRN (21:45)
[2017-12-06] MEDS ORDERED: Haloperidol 5mg/ml Inj IM PRN (21:46)
[2017-12-06] MEDS ORDERED: LORazepam 1mg tab ORAL PRN (21:48)
[2017-12-06] MEDS ORDERED: Miralax 17gm pkt ORAL PRN (21:48)
[2017-12-06] MEDS ORDERED: Morphine Sulfate 2mg/ml Inj(IV/IM USE ONLY) IVP PRN (21:48)
--- NOTE | 2017-12-06 22:48 | Nephrology Progress Note ---
Assessment/Plan Assessment 1. Acute versus chronic renal failure, the etiology of acute renal failure, unstable hemodynamics. 2. 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 3. Uncontrolled diabetes. 4. GI bleed. 5. Hypertension, which is uncontrolled at this time. Plan plan continue current iv monitoring renal function avoid NSAID replace electrolyte as need it Subjective Constitutional: Reports: no symptoms HEENT: Reports: no symptoms Genitourinary: Reports: no symptoms Neurologic/Psychiatric: Reports: no symptoms Objective Objective Last 24 Hour Vital Signs Date Time Temp Pulse Resp B/P (MAP) Pulse Ox O2 Delivery O2 Flow Rate FiO2 12/06/17 21:00 Room Air 12/06/17 20:49 79 144/72 12/06/17 20:00 99.3 79 20 144/72 (96) 95 99.3 12/06/17 16:00 97.9 75 18 113/61 (78) 96 97.9 12/06/17 12:00 97.9 75 18 129/61 (83) 96 97.9 12/06/17 09:00 Room Air 12/06/17 08:08 117/62 12/06/17 08:08 82 117/62 12/06/17 08:00 97.6 81 18 117/62 (80) 96 97.6 12/06/17 08:00 80 12/06/17 04:00 97.5 82 18 110/73 (85) 96 97.5 12/06/17 03:53 74 12/06/17 00:00 98.2 70 20 111/58 (75) 98 98.2 12/05/17 23:50 69 Intake and Output 12/05/17 12/06/17 19:00 07:00 Intake Total 825 ml Balance 825 ml Intake Oral 0 ml IV Total 825 ml # Voids 2 Laboratory Tests 12/06/17 04:00: Urine Color Yellow, Urine Appearance Clear, Urine pH 7, Urine Specific [place] 1.010, Urine Protein 1+H, Urine Glucose (UA) 3+H, Urine Ketones Negative, Urine Occult Blood Negative, Urine Nitrite Negative, Urine Bilirubin Negative, Urine Urobilinogen 1H, Urine Leukocyte Esterase Negative, Urine RBC 0-2H, Urine WBC 0- 2, Urine Squamous Epithelial Cells Occasional, Urine Bacteria Occasional, Urine Random Creatinine [Pending], Urine Random Microalbumin [Pending], Urine Random Total Protein 15H, Urine Random Sodium 103, Urine Creatinine 93.8, Urine Microalbumin/Creatinine Ratio [Pending] 12/06/17 05:05: White Blood Count 6.2, Red Blood Count 3.71L, Hemoglobin 10.1L, Hematocrit 30.6L , Mean Corpuscular Volume 82, Mean Corpuscular Hemoglobin 27.3, Mean Corpuscular Hemoglobin Concent 33.1, Red Cell Distribution Width 13.6, Platelet Count 191, Mean Platelet Volume 6.5, Neutrophils (%) (Auto) 51.5, Lymphocytes (% ) (Auto) 30.8, Monocytes (%) (Auto) 9.0, Eosinophils (%) (Auto) 7.9H, Basophils (%) (Auto) 0.7, Prothrombin Time 11.4, Prothromb Time International Ratio 1.1, Activated Partial Thromboplast Time 28, Sodium Level 139, Potassium Level 3.9, Chloride Level 103, Carbon Dioxide Level 26, Anion Gap 10, Blood Urea Nitrogen 15, Creatinine 1.1, Estimat Glomerular Filtration Rate > 60, Glucose Level 178H , Hemoglobin A1c 9.8H, Calcium Level 8.8, Total Bilirubin 0.3, Aspartate Amino Transf (AST/SGOT) 23, Alanine Aminotransferase (ALT/SGPT) 15, Alkaline Phosphatase 80, Total Protein 6.8, Albumin 3.1L, Globulin 3.7, Albumin/Globulin Ratio 0.8L, Triglycerides Level 82, Cholesterol Level 213H, LDL Cholesterol 162H , HDL Cholesterol 41, Cholesterol/HDL Ratio 5.2H, Amylase Level 86, Lipase 77, Thyroid Stimulating Hormone (TSH) 7.128H Height (Feet): 5 Height (Inches): 6.00 Weight (Pounds): 145 Objective GENERAL: He is well-developed, well-nourished male, in no acute distress. HEAD AND NECK: No JVP. No LAD. No thyromegaly. Extraocular movement intact. Pupils are reactive to light and accommodation. LUNGS: Clear to auscultation. CARDIAC: Regular rate and rhythm. S1 and S2. No murmur. No rub. ABDOMEN: Soft, nontender, and nondistended. EXTREMITIES: No edema. No clubbing. No cyanosis. Ailyn Caputo MD Dec 06, 2017 22:48
[2017-12-07] VITALS: BP 119/51
[2017-12-07 04:00] VITALS: BP 132/65
[2017-12-07] MEDS: NovoLOG Insulin Flexpen SUBQ SCH ×4 (06:14→20:11)
[2017-12-07 07:41] LABS: BASOPHILS % (AUTO) 0.9 % (0.0-2.0); EOSINOPHILS % (AUTO) 7.5 % (0.0-3.0); HEMATOCRIT 31.1 % (42.0-52.0); HEMOGLOBIN 10.5 G/DL (14.2-18.0); LYMPHOCYTES % (AUTO) 37.2 % (20.0-45.0); MEAN CORPUSCULAR VOLUME 83 FL (80-99); MONOCYTES % (AUTO) 10.6 % (1.0-10.0); NEUTROPHILS % (AUTO) 43.9 % (45.0-75.0); PLATELET COUNT 183 K/UL (150-450); RED BLOOD COUNT 3.75 M/UL (4.70-6.10); RED CELL DISTRIBUTION WIDTH 13.7 % (11.6-14.8); WHITE BLOOD COUNT 5.4 K/UL (4.8-10.8)
[2017-12-07 07:59] LABS: ANION GAP 11 mmol/L (5-15); BLOOD UREA NITROGEN 12 mg/dL (7-18); CALCIUM 9.3 MG/DL (8.5-10.1); CARBON DIOXIDE 26 MMOL/L (21-32); CHLORIDE 105 MMOL/L (98-107); POTASSIUM 3.6 MMOL/L (3.5-5.1); SODIUM 142 MMOL/L (136-145)
[2017-12-07 08:00] VITALS: BP 133/78
[2017-12-07] MEDS: Levemir Flexpen SUBQ SCH (08:51)
[2017-12-07] MEDS: Carvedilol 6.25mg Tab ORAL SCH ×2 (08:52→20:09)
[2017-12-07] MEDS: Lisinopril 10mg tab ORAL SCH (08:52)
[2017-12-07] MEDS: Pantoprazole Inj IVP SCH (08:52)
[2017-12-07] MEDS: Docusate 100mg cap ORAL SCH ×2 (08:52→17:33)
--- NOTE | 2017-12-07 11:42 | Pulmonology Progress Note ---
Assessment/Plan Problems: (1) ACS (acute coronary syndrome) (2) UGI bleed (3) Costochondritis (4) CAD (coronary artery disease) (5) Diabetes mellitus (6) HTN (hypertension) (7) Hypothyroidism Assessment/Plan f/u H/H check stool for OB f/u GI recommendations sliding scale diabetic diet. Subjective ROS Limited/Unobtainable: No Interval Events: sitting up the chair Allergies: Coded Allergies: AMPICILLIN (Verified Allergy, Unknown, 12/02/15) CODEINE (Verified Allergy, Unknown, 12/02/15) NSAIDS (NON-STEROIDAL ANTI-INFLAMMA (Verified Allergy, Unknown, 12/02/15) PEANUT (Verified Allergy, Unknown, 12/02/15) PENICILLINS (Verified Allergy, Unknown, 12/02/15) Objective Last 24 Hour Vital Signs Date Time Temp Pulse Resp B/P (MAP) Pulse Ox O2 Delivery O2 Flow Rate FiO2 12/07/17 08:52 133/78 12/07/17 08:52 78 133/78 12/07/17 08:00 Room Air 12/07/17 08:00 97.7 78 18 133/78 (96) 98 97.7 12/07/17 04:00 97.8 72 19 132/65 (87) 97 97.8 12/07/17 00:00 98.5 75 20 119/51 (73) 98 98.5 12/06/17 21:30 98.6 67 20 120/60 (80) 98 98.6 12/06/17 21:00 Room Air 12/06/17 20:49 79 144/72 12/06/17 20:00 99.3 79 20 144/72 (96) 95 99.3 12/06/17 16:00 97.9 75 18 113/61 (78) 96 97.9 12/06/17 12:00 97.9 75 18 129/61 (83) 96 97.9 Intake and Output 12/06/17 12/07/17 19:00 07:00 Intake Total 360 ml Output Total 200 ml 950 ml Balance 160 ml -950 ml Intake Oral 360 ml Output Urine Total 200 ml 950 ml # Voids 2 # Bowel Movements 1 General Appearance: WD/WN, no acute distress HEENT: normocephalic Respiratory/Chest: lungs clear Cardiovascular: normal peripheral pulses, normal rate Abdomen: normal bowel sounds, soft, non tender Genitourinary: normal external genitalia Extremities: no clubbing Skin: no lesions, no ulcers Laboratory Tests 12/07/17 06:25: White Blood Count 5.4, Red Blood Count 3.75L, Hemoglobin 10.5L, Hematocrit 31.1L , Mean Corpuscular Volume 83, Mean Corpuscular Hemoglobin 28.1, Mean Corpuscular Hemoglobin Concent 33.8, Red Cell Distribution Width 13.7, Platelet Count 183, Mean Platelet Volume 6.1L, Neutrophils (%) (Auto) 43.9L, Lymphocytes (%) (Auto) 37.2, Monocytes (%) (Auto) 10.6H, Eosinophils (%) (Auto) 7.5H, Basophils (%) (Auto) 0.9, Sodium Level 142, Potassium Level 3.6, Chloride Level 105, Carbon Dioxide Level 26, Anion Gap 11, Blood Urea Nitrogen 12, Creatinine 1.0, Estimat Glomerular Filtration Rate > 60, Glucose Level 138H, Calcium Level 9.3, Free Thyroxine 1.64H Current Medications Medications (Trade) Dose Ordered Sig/Stephanie Route PRN Reason Start Time Stop Time Status Last Admin Dose Admin Acetaminophen (Tylenol) 650 mg Q4H PRN ORAL fever 12/06/17 21:45 01/04/18 21:44 Al Hydroxide/Mg Hydroxide (Mylanta II) 30 ml Q6H PRN ORAL dyspepsia 12/06/17 21:45 01/05/18 21:44 Albuterol/ Ipratropium (Albuterol/ Ipratropium) 3 ml Q4H PRN HHN Shortness of Breath 12/06/17 21:46 12/11/17 21:45 Atorvastatin Calcium (Lipitor) 40 mg BEDTIME ORAL 12/07/17 21:00 01/04/18 20:59 Carvedilol (Coreg) 6.25 mg EVERY 12 HOURS ORAL 12/07/17 09:00 01/04/18 08:59 12/07/17 08:52 Clonidine HCl (Catapres Tab) 0.1 mg Q6H PRN ORAL sbp above 160 12/06/17 21:45 01/05/18 21:44 Dextrose (Dextrose 50%) 25 ml STAT PRN IV Hypoglycemia 12/07/17 07:45 01/04/18 07:44 Dextrose (Dextrose 50%) 50 ml STAT PRN IV Hypoglycemia 12/07/17 08:00 01/04/18 07:59 Diphenhydramine HCl (Benadryl) 25 mg Q6H PRN ORAL Itching/Pruritis 12/06/17 21:46 01/05/18 21:45 Docusate Sodium (Colace) 100 mg TWICE A DAY ORAL 12/07/17 09:00 01/05/18 08:59 12/07/17 08:52 Haloperidol Lactate (Haldol) 2 mg Q2H PRN IM Agitation 12/06/17 21:46 01/04/18 21:45 Insulin Aspart (NovoLOG) BEFORE MEALS AND HS SUBQ 12/07/17 06:30 01/04/18 11:29 12/07/17 06:14 Insulin Detemir (Levemir) 7 units DAILY SUBQ 12/07/17 09:00 01/05/18 11:59 12/07/17 08:51 Levothyroxine Sodium (Synthroid) 300 mcg Q24H ORAL 12/07/17 06:30 01/06/18 06:29 12/07/17 06:13 Lisinopril (Zestril) 10 mg DAILY ORAL 12/07/17 09:00 01/04/18 08:59 12/07/17 08:52 Lorazepam (Ativan) 1 mg Q6H PRN ORAL For Anxiety 12/06/17 21:48 12/12/17 21:47 Morphine Sulfate (Morphine Sulfate) 2 mg Q4H PRN IVP severe Pain (Pain Scale 7-10) 12/06/17 21:48 12/13/17 21:47 Nitroglycerin (Ntg) 0.4 mg Q5M X 3 DOSES PRN SL Prn Chest Pain 12/06/17 21:30 01/04/18 07:44 Ondansetron HCl (Zofran) 4 mg Q6H PRN IVP Nausea & Vomiting 12/06/17 21:48 01/05/18 21:47 Pantoprazole (Protonix) 40 mg DAILY IVP 12/07/17 09:00 01/04/18 08:59 12/07/17 08:52 Polyethylene Glycol (Miralax) 17 gm HSPRN PRN ORAL Constipation 12/06/17 21:48 01/05/18 21:47 Risperidone (RisperDAL) 0.5 mg BID ORAL 12/07/17 09:00 01/04/18 17:59 12/07/17 08:52 Temazepam (Restoril) 15 mg HSPRN PRN ORAL Insomnia 12/06/17 21:49 12/13/17 21:48 Otto Scanlon MD Dec 07, 2017 11:42
[2017-12-07 12:00] VITALS: BP 103/61
--- NOTE | 2017-12-07 14:24 | GI Progress Note ---
Assessment/Plan Problems: (1) Anemia ICD Codes: D64.9 - Anemia, unspecified SNOMED: 455356280 (2) UGI bleed ICD Codes: K92.2 - Gastrointestinal hemorrhage, unspecified SNOMED: 40696280 (3) Dehydration ICD Codes: E86.0 - Dehydration SNOMED: 61100680 Status: stable Status Narrative Discussed with Dr. Ojeda. Assessment/Plan EGD scheduled for tomorrow. - NPO @ OR. - hold all blood thinners tonight. ppi stool ob pending fu labs The patient was seen and examined at bedside and all new and available data was reviewed in the patients chart. I agree with the above findings, impression and plan. (Patient seen earlier today. Signature stamp does not reflect patient encounter time.). - Zachary Ojeda MD Subjective Gastrointestinal/Abdominal: Reports: no symptoms Objective Last 24 Hour Vital Signs Date Time Temp Pulse Resp B/P (MAP) Pulse Ox O2 Delivery O2 Flow Rate FiO2 12/07/17 12:00 97.7 71 18 103/61 (75) 99 97.7 12/07/17 08:52 133/78 12/07/17 08:52 78 133/78 12/07/17 08:00 Room Air 12/07/17 08:00 97.7 78 18 133/78 (96) 98 97.7 12/07/17 04:00 97.8 72 19 132/65 (87) 97 97.8 12/07/17 00:00 98.5 75 20 119/51 (73) 98 98.5 12/06/17 21:30 98.6 67 20 120/60 (80) 98 98.6 12/06/17 21:00 Room Air 12/06/17 20:49 79 144/72 12/06/17 20:00 99.3 79 20 144/72 (96) 95 99.3 12/06/17 16:00 97.9 75 18 113/61 (78) 96 97.9 Intake and Output 12/06/17 12/07/17 18:59 06:59 Intake Total 435 ml Output Total 200 ml 950 ml Balance 235 ml -950 ml Intake Oral 360 ml IV Total 75 ml Output Urine Total 200 ml 950 ml # Voids 2 # Bowel Movements 1 Laboratory Tests Test 12/07/17 06:25 White Blood Count 5.4 K/UL (4.8-10.8) Red Blood Count 3.75 M/UL (4.70-6.10) L Hemoglobin 10.5 G/DL (14.2-18.0) L Hematocrit 31.1 % (42.0-52.0) L Mean Corpuscular Volume 83 FL (80-99) Mean Corpuscular Hemoglobin 28.1 PG (27.0-31.0) Mean Corpuscular Hemoglobin Concent 33.8 G/DL (32.0-36.0) Red Cell Distribution Width 13.7 % (11.6-14.8) Platelet Count 183 K/UL (150-450) Mean Platelet Volume 6.1 FL (6.5-10.1) L Neutrophils (%) (Auto) 43.9 % (45.0-75.0) L Lymphocytes (%) (Auto) 37.2 % (20.0-45.0) Monocytes (%) (Auto) 10.6 % (1.0-10.0) H Eosinophils (%) (Auto) 7.5 % (0.0-3.0) H Basophils (%) (Auto) 0.9 % (0.0-2.0) Sodium Level 142 MMOL/L (136-145) Potassium Level 3.6 MMOL/L (3.5-5.1) Chloride Level 105 MMOL/L (98-107) Carbon Dioxide Level 26 MMOL/L (21-32) Anion Gap 11 mmol/L (5-15) Blood Urea Nitrogen 12 mg/dL (7-18) Creatinine 1.0 MG/DL (0.55-1.30) Estimat Glomerular Filtration Rate > 60 mL/min (>60) Glucose Level 138 MG/DL (74-106) H Calcium Level 9.3 MG/DL (8.5-10.1) Free Thyroxine 1.64 NG/DL (0.76-1.46) H Height (Feet): 5 Height (Inches): 6.00 Weight (Pounds): 145 General Appearance: WD/WN, no apparent distress, alert Cardiovascular: normal rate Respiratory/Chest: normal breath sounds, no respiratory distress Abdominal Exam: normal bowel sounds, non tender, soft Extremities: normal range of motion, non-tender Ayanna Duncan [employer] Dec 07, 2017 14:24
[2017-12-07 16:00] VITALS: BP 137/80
[2017-12-07 20:00] VITALS: BP 152/78
[2017-12-07] MEDS: Atorvastatin 20mg tab ORAL SCH (20:09)
--- NOTE | 2017-12-07 22:18 | General Progress Note ---
Assessment/Plan Problem List: (1) Diabetes mellitus ICD Codes: E11.9 - Type 2 diabetes mellitus without complications SNOMED: 80643890 (2) Hyperglycemia ICD Codes: R73.9 - Hyperglycemia, unspecified SNOMED: 88035190 (3) UGI bleed ICD Codes: K92.2 - Gastrointestinal hemorrhage, unspecified SNOMED: 01559589 (4) CAD (coronary artery disease) ICD Codes: I25.10 - Atherosclerotic heart disease of [place] coronary artery without angina pectoris SNOMED: 53254912 (5) Hyperlipidemia ICD Codes: E78.5 - Hyperlipidemia, unspecified SNOMED: 86531178 (6) HTN (hypertension) ICD Codes: I10 - Essential (primary) hypertension SNOMED: 08720388 (7) Chest pain ICD Codes: R07.9 - Chest pain, unspecified SNOMED: 76928528 Qualifiers: Qualified Codes: R07.9 - Chest pain, unspecified Status: progressing Assessment/Plan atypical chest pain check h/h moniter no vomitting cad htn dm afebrile reviewed chart and labs Subjective ROS Limited/Unobtainable: Yes Allergies: Coded Allergies: AMPICILLIN (Verified Allergy, Unknown, 12/02/15) CODEINE (Verified Allergy, Unknown, 12/02/15) NSAIDS (NON-STEROIDAL ANTI-INFLAMMA (Verified Allergy, Unknown, 12/02/15) PEANUT (Verified Allergy, Unknown, 12/02/15) PENICILLINS (Verified Allergy, Unknown, 12/02/15) Objective Last 24 Hour Vital Signs Date Time Temp Pulse Resp B/P (MAP) Pulse Ox O2 Delivery O2 Flow Rate FiO2 12/07/17 20:09 69 152/78 12/07/17 16:00 97.0 72 18 137/80 (99) 99 97.0 12/07/17 12:00 97.7 71 18 103/61 (75) 99 97.7 12/07/17 08:52 133/78 12/07/17 08:52 78 133/78 12/07/17 08:00 Room Air 12/07/17 08:00 97.7 78 18 133/78 (96) 98 97.7 12/07/17 04:00 97.8 72 19 132/65 (87) 97 97.8 12/07/17 00:00 98.5 75 20 119/51 (73) 98 98.5 Intake and Output 12/06/17 12/07/17 19:00 07:00 Intake Total 360 ml Output Total 200 ml 950 ml Balance 160 ml -950 ml Intake Oral 360 ml Output Urine Total 200 ml 950 ml # Voids 2 # Bowel Movements 1 Laboratory Tests 12/07/17 06:25: White Blood Count 5.4, Red Blood Count 3.75L, Hemoglobin 10.5L, Hematocrit 31.1L , Mean Corpuscular Volume 83, Mean Corpuscular Hemoglobin 28.1, Mean Corpuscular Hemoglobin Concent 33.8, Red Cell Distribution Width 13.7, Platelet Count 183, Mean Platelet Volume 6.1L, Neutrophils (%) (Auto) 43.9L, Lymphocytes (%) (Auto) 37.2, Monocytes (%) (Auto) 10.6H, Eosinophils (%) (Auto) 7.5H, Basophils (%) (Auto) 0.9, Sodium Level 142, Potassium Level 3.6, Chloride Level 105, Carbon Dioxide Level 26, Anion Gap 11, Blood Urea Nitrogen 12, Creatinine 1.0, Estimat Glomerular Filtration Rate > 60, Glucose Level 138H, Calcium Level 9.3, Free Thyroxine 1.64H Height (Feet): 5 Height (Inches): 6.00 Weight (Pounds): 145 Will Ghosh MD Dec 07, 2017 22:18
--- NOTE | 2017-12-07 23:54 | Cardiology Progress Note ---
Assessment/Plan Assessment/Plan The patient is seen and examined, full consult note will be dictated. Objective Last 24 Hour Vital Signs Date Time Temp Pulse Resp B/P (MAP) Pulse Ox O2 Delivery O2 Flow Rate FiO2 12/07/17 20:09 69 152/78 12/07/17 16:00 97.0 72 18 137/80 (99) 99 97.0 12/07/17 12:00 97.7 71 18 103/61 (75) 99 97.7 12/07/17 08:52 133/78 12/07/17 08:52 78 133/78 12/07/17 08:00 Room Air 12/07/17 08:00 97.7 78 18 133/78 (96) 98 97.7 12/07/17 04:00 97.8 72 19 132/65 (87) 97 97.8 12/07/17 00:00 98.5 75 20 119/51 (73) 98 98.5 Intake and Output 12/06/17 12/07/17 19:00 07:00 Intake Total 360 ml Output Total 200 ml 950 ml Balance 160 ml -950 ml Intake Oral 360 ml Output Urine Total 200 ml 950 ml # Voids 2 # Bowel Movements 1 Laboratory Tests Test 12/07/17 06:25 White Blood Count 5.4 K/UL (4.8-10.8) Red Blood Count 3.75 M/UL (4.70-6.10) L Hemoglobin 10.5 G/DL (14.2-18.0) L Hematocrit 31.1 % (42.0-52.0) L Mean Corpuscular Volume 83 FL (80-99) Mean Corpuscular Hemoglobin 28.1 PG (27.0-31.0) Mean Corpuscular Hemoglobin Concent 33.8 G/DL (32.0-36.0) Red Cell Distribution Width 13.7 % (11.6-14.8) Platelet Count 183 K/UL (150-450) Mean Platelet Volume 6.1 FL (6.5-10.1) L Neutrophils (%) (Auto) 43.9 % (45.0-75.0) L Lymphocytes (%) (Auto) 37.2 % (20.0-45.0) Monocytes (%) (Auto) 10.6 % (1.0-10.0) H Eosinophils (%) (Auto) 7.5 % (0.0-3.0) H Basophils (%) (Auto) 0.9 % (0.0-2.0) Sodium Level 142 MMOL/L (136-145) Potassium Level 3.6 MMOL/L (3.5-5.1) Chloride Level 105 MMOL/L (98-107) Carbon Dioxide Level 26 MMOL/L (21-32) Anion Gap 11 mmol/L (5-15) Blood Urea Nitrogen 12 mg/dL (7-18) Creatinine 1.0 MG/DL (0.55-1.30) Estimat Glomerular Filtration Rate > 60 mL/min (>60) Glucose Level 138 MG/DL (74-106) H Calcium Level 9.3 MG/DL (8.5-10.1) Free Thyroxine 1.64 NG/DL (0.76-1.46) H Yonis Steinberg MD Dec 07, 2017 23:54
[2017-12-08] VITALS (10 sets, daily range): BP systolic 111–166; BP diastolic 65–96
--- NOTE | 2017-12-08 03:45 | Consultation ---
DATE OF CONSULTATION: 12/07/2017 CARDIOLOGY CONSULTATION CONSULTING PHYSICIAN: Yonis Steinberg M.D. REFERRING PHYSICIAN: Wes Ramirez D.O. REASON FOR CONSULTATION: Preoperative cardiac clearance for noncardiac surgery. HISTORY OF PRESENT ILLNESS: The patient is a very unfortunate 67-year-old gentleman, who is a resident of a nursing facility, who presents to the hospital with coffee-grounds emesis x3 causing pain in the midsternal chest and also epigastric pain. The patient on arrival to the hospital had a blood pressure 146/84 mmHg and pulse rate of 80. A 12-lead electrocardiogram was significant for sinus rhythm at a rate of [address] and T-wave abnormality, although baseline tremors were evident. The patient was admitted to the hospital for evaluation and management of emesis. PAST MEDICAL HISTORY: Including hypothyroidism, hyperlipidemia, hypertension, chronic obstructive pulmonary disease, diabetes mellitus, history of pancreatitis, history of anemia, history of subdural hematoma, history of diffuse traumatic brain injury, history of coronary artery disease, and history of psychiatric disorder. FAMILY HISTORY: No premature coronary artery disease or arrhythmogenic in first-degree relatives. PAST SURGICAL HISTORY: None. SOCIAL HISTORY: Denies any tobacco, alcohol, or illicit drug use. MEDICATIONS: List of medications at correction includes acetaminophen 650 mg q.4 hours p.r.n. mild pain and temperature above 100.5, albuterol 3 mL inhaler q.4 hours p.r.n. shortness of breath, ascorbic acid 500 mg p.o. daily, aspirin 81 mg p.o. daily, atorvastatin 40 mg p.o. nightly, Dulcolax 10 mg rectal daily, Coreg 6.25 mg q.12 hours, Cleocin HCL 300 mg q.6 hours for five days, Klonopin 0.5 mg p.o. twice daily, clonidine 0.1 mg q.6 hours, ferrous sulfate 325 mg daily, heparin sulfate 5000 units subcutaneous q.12 hours, insulin NovoLog sliding scale, insulin Levemir 18 units subcutaneously daily, levothyroxine 300 mcg p.o. daily, lisinopril 10 mg p.o. daily, lorazepam 1 mg q.6 hours for anxiety, milk of magnesia 30 mL p.o. daily p.r.n. constipation, metoprolol 25 mg twice daily, multivitamin one tablet daily, Bactroban one application three times a day, Fleet enema 133 mL rectal daily p.r.n. constipation, nitroglycerin 0.4 mg subcutaneous q.5 minutes x3 as needed chest pain, nystatin 5 mL four times a day, pain, pantoprazole 40 mg p.o. daily, risperidone 0.5 mg p.o. twice daily, Restoril 7.5 mg nightly, and Ambien 5 mg p.o. nightly as needed insomnia. ALLERGIES: Allergies to ampicillin, codeine, nonsteroidal anti-inflammatory drugs, peanuts, and penicillin. REVIEW OF SYSTEMS: HEENT: Denies any headache, diplopia, or blurred vision. CONSTITUTIONAL: Denies any fever, chills, night sweats, or weight loss. CARDIOVASCULAR: He complains of midsternal chest pain, but no shortness of breath. No PND or orthopnea. PULMONARY: Denies any cough, hemoptysis, or wheezing. GASTROINTESTINAL: Some abdominal pain, epigastric area. Some pain along the esophagus, which chest pain, nausea, vomiting, hematemesis. Denies any diarrhea or constipation. NEUROLOGIC: Denies any motor dysfunction, sensory deficit, or altered speech. MUSCULOSKELETAL: Denies any muscle mass, arthralgia, or myalgia. SKIN: He denies any rash. ENDOCRINE: Denies any increased thirst or increased urination. PHYSICAL EXAMINATION: VITAL SIGNS: Blood pressure is 146/84 mmHg, respirations 16, pulse of 80, temperature 98.4 degrees Fahrenheit, and O2 saturation 98% on nasal cannula 2 liters of oxygen per minute. GENERAL: The patient is a very unfortunate 67-year-old male, seen in Cardiology consultation at request of Dr. Ramirez. HEENT: Atraumatic and normocephalic. Anicteric. Pupils are equal, round, and reactive to light and accommodation. Extraocular muscles are intact. NECK: JVP is less than 5 cm. No carotid bruits. Carotid upstrokes 2+ bilaterally. CARDIOVASCULAR: Normal S1 and S2. Regular rate and rhythm. No murmurs, gallops, or rubs. PMI is at fourth intercostal space in the midclavicular line. LUNGS: Clear to auscultation bilaterally. ABDOMEN: Soft, nontender, and nondistended. No hepatosplenomegaly. Positive bowel sounds. EXTREMITIES: No evidence of edema, clubbing, or cyanosis. LABORATORY AND DIAGNOSTIC DATA: Laboratory findings, WBC 7.5, hemoglobin of 12.1, hematocrit 37.3, and platelet count is 235,000. Sodium 140, potassium 4.1, chloride 99, bicarbonate 29, BUN 24, creatinine 1.4, and glucose is 120. Calcium is 10.0. Troponin is 0.004 and 0.008. TSH was 7.12. Triglycerides 82, total cholesterol 3.2, LDL is 162, and HDL of 41. INR is 1.0. Chest x-ray showed no acute cardiopulmonary disease. ASSESSMENT AND PLAN: The patient is a very unfortunate 67-year-old gentleman, seen in Cardiology consultation at request of Dr. Ramirez. 1. Chest pain, most likely noncardiac. This appears to be secondary to frequent emesis and most of the chest pain is due to gastritis and esophagitis. The patient is planned for upper endoscopy procedure. 2. History of coronary artery disease, the detail of which is unknown and 12-lead electrocardiogram does not show any evidence of ischemia. The patient is cleared for the low-risk above procedure with the risk of coronary artery events perioperatively estimated to be less than 1%. 3. History of hyperlipidemia, could be secondary to hypothyroidism. We would like to correct the thyroid status with thyroid supplementation before we implement therapy for hyperlipidemia. 4. History of diabetes mellitus. 5. History of chronic obstructive pulmonary disease. 6. History of hyperlipidemia. 7. History of pancreatitis. 8. History of anemia. 9. History of subdural hematoma. I would like to order 2D echocardiography for assessment of LV systolic and diastolic function. I would like to thank, Dr. Ramirez, for allowing me to participate in the care of this patient. Yonis Steinberg M.D. DR: FANI JOB#: [id number] CC:
[2017-12-08] MEDS: NovoLOG Insulin Flexpen SUBQ SCH ×4 (05:59→20:13)
[2017-12-08 08:00] LABS: BASOPHILS % (AUTO) 0.9 % (0.0-2.0); EOSINOPHILS % (AUTO) 7.4 % (0.0-3.0); HEMATOCRIT 35.1 % (42.0-52.0); HEMOGLOBIN 11.3 G/DL (14.2-18.0); LYMPHOCYTES % (AUTO) 30.8 % (20.0-45.0); MEAN CORPUSCULAR VOLUME 83 FL (80-99); MONOCYTES % (AUTO) 10.2 % (1.0-10.0); NEUTROPHILS % (AUTO) 50.7 % (45.0-75.0); PLATELET COUNT 203 K/UL (150-450); RED BLOOD COUNT 4.23 M/UL (4.70-6.10); RED CELL DISTRIBUTION WIDTH 13.4 % (11.6-14.8); WHITE BLOOD COUNT 5.3 K/UL (4.8-10.8)
[2017-12-08 08:15] LABS: ANION GAP 7 mmol/L (5-15); BLOOD UREA NITROGEN 10 mg/dL (7-18); CALCIUM 9.4 MG/DL (8.5-10.1); CARBON DIOXIDE 30 MMOL/L (21-32); CHLORIDE 102 MMOL/L (98-107); POTASSIUM 3.8 MMOL/L (3.5-5.1); SODIUM 139 MMOL/L (136-145)
[2017-12-08] MEDS: Carvedilol 6.25mg Tab ORAL SCH ×2 (08:40→20:11)
[2017-12-08] MEDS: Levemir Flexpen SUBQ SCH (08:41)
[2017-12-08] MEDS: Lisinopril 10mg tab ORAL SCH (08:43)
[2017-12-08] MEDS: Pantoprazole Inj IVP SCH (08:43)
[2017-12-08] MEDS: Docusate 100mg cap ORAL SCH ×2 (08:43→17:14)
--- NOTE | 2017-12-08 12:31 | Pre-Procedure Note/Attestation ---
Pre-Procedure Note/Attestation Complete Prior to Procedure Planned Procedure: not applicable Procedure Narrative: egd Indications for Procedure Pre-Operative Diagnosis: gib Attestation I attest that I discussed the nature of the procedure; its benefits; risks and complications; and alternatives (and the risks and benefits of such alternatives ), prior to the procedure, with the patient (or the patient's legal event sales representative). I attest that, if there was a reasonable possibility of needing a blood transfusion, the patient (or the patient's legal event sales representative) was given the [facility] standardized written summary, pursuant to the Filipe Trudi Blood Safety Act ([place] Health and Safety Code # 1645, as amended). I attest that I re-evaluated the patient just prior to the surgery and that there has been no change in the patient's H&P, except as documented below: Zachary Ojeda MD Dec 08, 2017 12:31
--- NOTE | 2017-12-08 12:32 | Endoscopy Procedure Note ---
Endoscopy Procedure Note General Indication for Procedure: gib Procedures Performed: EGD Operative Findings/Diagnosis: gastritis Specimen: yes Pt Tolerated Procedure Well: Yes Estimated Blood Loss: none Anesthesia Anesthesiologist: audra Anesthesia: MAC Inserted Devices Implant(s) used?: No GI Core Measures 50 yrs or older w/o bx or poly: Not Applicable 10yrs. F/U not recommended: Not Applicable Zachary Ojeda MD Dec 08, 2017 12:32
[2017-12-08] MEDS ORDERED: NS 500ML IVPB ONE (12:40)
--- NOTE | 2017-12-08 13:21 | Anethesia Preoperative Eval ---
Anesthesia Pre-op PMH/ROS General Date of Evaluation: Dec 08, 2017 Time of Evaluation: 12:38 Anesthesiologist: pari ASA Score: ASA 4 Mallampati Score Class I : Soft palate, uvula, fauces, pillars visible Class II: Soft palate, uvula, fauces visible Class III: Soft palate, base of uvula visible Class IV: Only hard plate visible Mallampati Classification: Class II Surgeon: michael Diagnosis: gi bleed Surgical Procedure: egd Anesthesia History: none Social History: smoking - nonsmoker Family History: no anesthesia problems Allergies: Coded Allergies: AMPICILLIN (Verified Allergy, Unknown, 12/02/15) CODEINE (Verified Allergy, Unknown, 12/02/15) NSAIDS (NON-STEROIDAL ANTI-INFLAMMA (Verified Allergy, Unknown, 12/02/15) PEANUT (Verified Allergy, Unknown, 12/02/15) PENICILLINS (Verified Allergy, Unknown, 12/02/15) Medications: see eMAR Past Medical History Cardiovascular: Reports: HTN, CAD, other - pacemaker, acs Gastrointestinal/Genitourinary: Reports: GERD, other - gi bleed Neurologic/Psychiatric: Reports: other - traumatic brain injury Endocrine: Reports: DM, hypothyroidism Anesthesia Pre-op Phys. Exam Physician Exam Last Vital Signs Date Time Temp Pulse Resp B/P (MAP) Pulse Ox O2 Delivery O2 Flow Rate FiO2 12/08/17 13:10 61 18 125/66 100 Nasal Cannula 3 12/08/17 13:04 97.1 97.1 Constitutional: NAD Neurologic: CN 2-12 intact Cardiovascular: RRR Respiratory: CTA Gastrointestinal: S/NT/ND Airway Exam Mallampati Score: Class II MO: limited Neck: flexible TMD: 2fb ROM: limited Anesthesia Pre-op A/P Labs Hematology Test 12/08/17 07:25 White Blood Count 5.3 K/UL (4.8-10.8) Red Blood Count 4.23 M/UL (4.70-6.10) L Hemoglobin 11.3 G/DL (14.2-18.0) L Hematocrit 35.1 % (42.0-52.0) L Mean Corpuscular Volume 83 FL (80-99) Mean Corpuscular Hemoglobin 26.8 PG (27.0-31.0) L Mean Corpuscular Hemoglobin Concent 32.3 G/DL (32.0-36.0) Red Cell Distribution Width 13.4 % (11.6-14.8) Platelet Count 203 K/UL (150-450) Mean Platelet Volume 5.9 FL (6.5-10.1) L Neutrophils (%) (Auto) 50.7 % (45.0-75.0) Lymphocytes (%) (Auto) 30.8 % (20.0-45.0) Monocytes (%) (Auto) 10.2 % (1.0-10.0) H Eosinophils (%) (Auto) 7.4 % (0.0-3.0) H Basophils (%) (Auto) 0.9 % (0.0-2.0) Coagulation Test 12/08/17 07:25 Prothrombin Time 11.0 SEC (9.30-11.50) Prothromb Time International Ratio 1.0 (0.9-1.1) Activated Partial Thromboplast Time 29 SEC (23-33) Chemistry Test 12/08/17 07:25 Sodium Level 139 MMOL/L (136-145) Potassium Level 3.8 MMOL/L (3.5-5.1) Chloride Level 102 MMOL/L (98-107) Carbon Dioxide Level 30 MMOL/L (21-32) Anion Gap 7 mmol/L (5-15) Blood Urea Nitrogen 10 mg/dL (7-18) Creatinine 1.0 MG/DL (0.55-1.30) Estimat Glomerular Filtration Rate > 60 mL/min (>60) Glucose Level 215 MG/DL (74-106) H Calcium Level 9.4 MG/DL (8.5-10.1) Risk Assessment & Plan Assessment: asa4 Plan: mac Status Change Before Surgery: No Pre-Antibiotics Drug: Kaela Gamino MD Dec 08, 2017 13:21
--- NOTE | 2017-12-08 13:23 | Immediate Post-Op Evaluation ---
Immediate Post-Op Evalulation Immediate Post-Op Evalulation Procedure: egd w/bx Date of Evaluation: Dec 08, 2017 Time of Evaluation: 13:16 IV Fluids: 150ml 0.9ns Blood Products: none Estimated Blood Loss: negligible Blood Pressure Systolic: 125 Blood Pressure Diastolic: 65 Pulse Rate: 69 Respiratory Rate: 18 O2 Sat by Pulse Oximetry: 100 Temperature (Fahrenheit): 97.1 Pain Score (1-10): 0 Nausea: No Vomiting: No Complications none Patient Status: awake, reacts, patent Hydration Status: adequate Drug: Kaela Gamino MD Dec 08, 2017 13:23
--- NOTE | 2017-12-08 13:24 | 48 Hour Post Anesthesia Eval ---
Post Anesthesia Evaluation Procedure: egd w/bx Date of Evaluation: Dec 08, 2017 Time of Evaluation: 13:18 Blood Pressure Systolic: 122 0: 65 Pulse Rate: 65 Respiratory Rate: 18 Temperature (Fahrenheit): 97.1 O2 Sat by Pulse Oximetry: 100 Airway: patent Nausea: No Vomiting: No Pain Intensity: 0 Hydration Status: adequate Cardiopulmonary Status: stable Mental Status/LOC: patient returned to baseline Post-Anesthesia Complications: none Follow-up care needed: N/A Kaela Andres MD Dec 08, 2017 13:24
[2017-12-08] MEDS ORDERED: Midazolam 2mg/2ml Inj IVP PRN (13:30)
[2017-12-08] MEDS ORDERED: Atropine Inj 1mg/10ml Syr IV PRN (13:30)
[2017-12-08] MEDS ORDERED: DiphenhydrAMINE 50mg/ml Inj IVP PRN (13:30)
[2017-12-08] MEDS ORDERED: fentaNYL 100 mcg/2 mL IV PRN (13:30)
--- NOTE | 2017-12-08 13:45 | Nephrology Progress Note ---
Assessment/Plan Assessment 1. Acute versus chronic renal failure, the etiology of acute renal failure, unstable hemodynamics. 2. 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 3. Uncontrolled diabetes. 4. GI bleed. 5. Hypertension, which is uncontrolled at this time. Plan plan continue current iv monitoring renal function avoid NSAID replace electrolyte as need it Objective Objective Last 24 Hour Vital Signs Date Time Temp Pulse Resp B/P (MAP) Pulse Ox O2 Delivery O2 Flow Rate FiO2 12/08/17 13:25 97.4 62 19 119/68 98 Room Air 97.4 12/08/17 13:24 206.8 65 18 100 12/08/17 13:23 206.8 69 18 100 12/08/17 13:15 63 17 123/66 100 Nasal Cannula 3 12/08/17 13:10 61 18 125/66 100 Nasal Cannula 3 12/08/17 13:04 97.1 65 16 125/65 100 Nasal Cannula 3 97.1 12/08/17 08:40 68 134/69 12/08/17 08:00 Room Air 12/08/17 08:00 96.3 68 19 134/69 (90) 100 96.3 12/08/17 04:00 99.7 87 19 129/73 (91) 97 99.7 12/08/17 00:49 166/96 12/08/17 00:00 97.2 72 19 166/96 (119) 98 97.2 12/07/17 21:00 Room Air 12/07/17 20:09 69 152/78 12/07/17 20:00 97.4 69 19 152/78 (102) 100 97.4 12/07/17 16:00 97.0 72 18 137/80 (99) 99 97.0 Intake and Output 12/07/17 12/08/17 19:00 07:00 Intake Total 600 ml Output Total 750 ml 850 ml Balance -150 ml -850 ml Intake Oral 600 ml Output Urine Total 750 ml 850 ml Laboratory Tests 12/08/17 07:25: White Blood Count 5.3, Red Blood Count 4.23L, Hemoglobin 11.3L, Hematocrit 35.1L , Mean Corpuscular Volume 83, Mean Corpuscular Hemoglobin 26.8L, Mean Corpuscular Hemoglobin Concent 32.3, Red Cell Distribution Width 13.4, Platelet Count 203, Mean Platelet Volume 5.9L, Neutrophils (%) (Auto) 50.7, Lymphocytes ( %) (Auto) 30.8, Monocytes (%) (Auto) 10.2H, Eosinophils (%) (Auto) 7.4H, Basophils (%) (Auto) 0.9, Prothrombin Time 11.0, Prothromb Time International Ratio 1.0, Activated Partial Thromboplast Time 29, Sodium Level 139, Potassium Level 3.8, Chloride Level 102, Carbon Dioxide Level 30, Anion Gap 7, Blood Urea Nitrogen 10, Creatinine 1.0, Estimat Glomerular Filtration Rate > 60, Glucose Level 215H, Calcium Level 9.4 12/08/17 11:10: Stool Occult Blood [Pending] Height (Feet): 5 Height (Inches): 5.00 Weight (Pounds): 145 Objective GENERAL: He is well-developed, well-nourished male, in no acute distress. HEAD AND NECK: No JVP. No LAD. No thyromegaly. Extraocular movement intact. Pupils are reactive to light and accommodation. LUNGS: Clear to auscultation. CARDIAC: Regular rate and rhythm. S1 and S2. No murmur. No rub. ABDOMEN: Soft, nontender, and nondistended. EXTREMITIES: No edema. No clubbing. No cyanosis. Ailyn Caputo MD Dec 08, 2017 13:44
--- NOTE | 2017-12-08 14:00 | Pulmonology Progress Note ---
Assessment/Plan Problems: (1) ACS (acute coronary syndrome) (2) UGI bleed (3) Costochondritis (4) CAD (coronary artery disease) (5) Diabetes mellitus (6) HTN (hypertension) (7) Hypothyroidism Assessment/Plan EGD showed gastritis f/u H/H check stool for OB f/u GI recommendations sliding scale diabetic diet. dc planning Subjective ROS Limited/Unobtainable: No Constitutional: Reports: no symptoms HEENT: Repors: no symptoms Respiratory: Reports: no symptoms Allergies: Coded Allergies: AMPICILLIN (Verified Allergy, Unknown, 12/02/15) CODEINE (Verified Allergy, Unknown, 12/02/15) NSAIDS (NON-STEROIDAL ANTI-INFLAMMA (Verified Allergy, Unknown, 12/02/15) PEANUT (Verified Allergy, Unknown, 12/02/15) PENICILLINS (Verified Allergy, Unknown, 12/02/15) Objective Last 24 Hour Vital Signs Date Time Temp Pulse Resp B/P (MAP) Pulse Ox O2 Delivery O2 Flow Rate FiO2 12/08/17 13:25 97.4 62 19 119/68 98 Room Air 97.4 12/08/17 13:24 206.8 65 18 100 12/08/17 13:23 206.8 69 18 100 12/08/17 13:15 63 17 123/66 100 Nasal Cannula 3 12/08/17 13:10 61 18 125/66 100 Nasal Cannula 3 12/08/17 13:04 97.1 65 16 125/65 100 Nasal Cannula 3 97.1 12/08/17 08:40 68 134/69 12/08/17 08:00 Room Air 12/08/17 08:00 96.3 68 19 134/69 (90) 100 96.3 12/08/17 04:00 99.7 87 19 129/73 (91) 97 99.7 12/08/17 00:49 166/96 12/08/17 00:00 97.2 72 19 166/96 (119) 98 97.2 12/07/17 21:00 Room Air 12/07/17 20:09 69 152/78 12/07/17 20:00 97.4 69 19 152/78 (102) 100 97.4 12/07/17 16:00 97.0 72 18 137/80 (99) 99 97.0 Intake and Output 12/07/17 12/08/17 18:59 06:59 Intake Total 600 ml Output Total 750 ml 850 ml Balance -150 ml -850 ml Intake Oral 600 ml Output Urine Total 750 ml 850 ml General Appearance: WD/WN HEENT: normocephalic, atraumatic Respiratory/Chest: chest wall non-tender, lungs clear Cardiovascular: normal peripheral pulses, normal rate Abdomen: normal bowel sounds, soft, non tender Genitourinary: normal external genitalia Extremities: no cyanosis Skin: no rash Laboratory Tests 12/08/17 07:25: White Blood Count 5.3, Red Blood Count 4.23L, Hemoglobin 11.3L, Hematocrit 35.1L , Mean Corpuscular Volume 83, Mean Corpuscular Hemoglobin 26.8L, Mean Corpuscular Hemoglobin Concent 32.3, Red Cell Distribution Width 13.4, Platelet Count 203, Mean Platelet Volume 5.9L, Neutrophils (%) (Auto) 50.7, Lymphocytes ( %) (Auto) 30.8, Monocytes (%) (Auto) 10.2H, Eosinophils (%) (Auto) 7.4H, Basophils (%) (Auto) 0.9, Prothrombin Time 11.0, Prothromb Time International Ratio 1.0, Activated Partial Thromboplast Time 29, Sodium Level 139, Potassium Level 3.8, Chloride Level 102, Carbon Dioxide Level 30, Anion Gap 7, Blood Urea Nitrogen 10, Creatinine 1.0, Estimat Glomerular Filtration Rate > 60, Glucose Level 215H, Calcium Level 9.4 12/08/17 11:10: Stool Occult Blood [Pending] Current Medications Medications (Trade) Dose Ordered Sig/Stephanie Route PRN Reason Start Time Stop Time Status Last Admin Dose Admin Acetaminophen (Tylenol) 650 mg Q4H PRN ORAL fever 12/06/17 21:45 01/04/18 21:44 Al Hydroxide/Mg Hydroxide (Mylanta II) 30 ml Q6H PRN ORAL dyspepsia 12/06/17 21:45 01/05/18 21:44 Al Hydroxide/Mg Hydroxide (Mylanta) 15 ml Q1H PRN ORAL gi upset 12/08/17 13:30 12/08/17 18:00 Albuterol/ Ipratropium (Albuterol/ Ipratropium) 3 ml Q4H PRN HHN Shortness of Breath 12/06/17 21:46 8/24/18 21:45 Atorvastatin Calcium (Lipitor) 40 mg BEDTIME ORAL 12/07/17 21:00 01/04/18 20:59 12/07/17 20:09 Atropine Sulfate (Atropine) 0.5 mg Q5M PRN IV HR less than 45 BPM 12/08/17 13:30 12/08/17 18:00 Carvedilol (Coreg) 6.25 mg EVERY 12 HOURS ORAL 12/07/17 09:00 01/04/18 08:59 12/08/17 08:40 Clonidine HCl (Catapres Tab) 0.1 mg Q6H PRN ORAL sbp above 160 12/06/17 21:45 01/05/18 21:44 12/08/17 00:49 Dextrose (Dextrose 50%) 25 ml STAT PRN IV Hypoglycemia 12/07/17 07:45 01/04/18 07:44 Dextrose (Dextrose 50%) 50 ml STAT PRN IV Hypoglycemia 12/07/17 08:00 01/04/18 07:59 Diphenhydramine HCl (Benadryl) 25 mg Q15M PRN IVP Itching 12/08/17 13:30 12/08/17 18:00 Diphenhydramine HCl (Benadryl) 25 mg Q6H PRN ORAL Itching/Pruritis 12/06/17 21:46 01/05/18 21:45 Docusate Sodium (Colace) 100 mg TWICE A DAY ORAL 12/07/17 09:00 01/05/18 08:59 12/07/17 17:33 Fentanyl Citrate (Sublimaze 100 mcg/2 mL) 25 mcg Q10M PRN IV Moderate Pain (Pain Scale 4-6) 12/08/17 13:30 12/08/17 19:00 Haloperidol Lactate (Haldol) 2 mg Q2H PRN IM Agitation 12/06/17 21:46 01/04/18 21:45 Insulin Aspart (NovoLOG) BEFORE MEALS AND HS SUBQ 12/07/17 06:30 01/04/18 11:29 12/07/17 20:11 Insulin Detemir (Levemir) 7 units DAILY SUBQ 12/07/17 09:00 01/05/18 11:59 12/08/17 08:41 Levothyroxine Sodium (Synthroid) 300 mcg Q24H ORAL 12/07/17 06:30 01/06/18 06:29 12/07/17 06:13 Lisinopril (Zestril) 10 mg DAILY ORAL 12/07/17 09:00 01/04/18 08:59 12/07/17 08:52 Lorazepam (Ativan) 1 mg Q6H PRN ORAL For Anxiety 12/06/17 21:48 12/12/17 21:47 Midazolam HCl (Versed 2mg/2ml vial) 1 mg Q15M PRN IVP For Anxiety 12/08/17 13:30 12/08/17 18:00 Morphine Sulfate (Morphine Sulfate) 2 mg Q4H PRN IVP severe Pain (Pain Scale 7-10) 12/06/17 21:48 12/13/17 21:47 Nitroglycerin (Ntg) 0.4 mg Q5M X 3 DOSES PRN SL Prn Chest Pain 12/06/17 21:30 01/04/18 07:44 Ondansetron HCl (Zofran) 4 mg Q1H PRN IVP Nausea & Vomiting 12/08/17 13:30 12/08/17 18:00 Ondansetron HCl (Zofran) 4 mg Q6H PRN IVP Nausea & Vomiting 12/06/17 21:48 01/05/18 21:47 Pantoprazole (Protonix) 40 mg DAILY IVP 12/07/17 09:00 01/04/18 08:59 12/07/17 08:52 Polyethylene Glycol (Miralax) 17 gm HSPRN PRN ORAL Constipation 12/06/17 21:48 01/05/18 21:47 Risperidone (RisperDAL) 0.5 mg BID ORAL 12/07/17 09:00 01/04/18 17:59 12/07/17 17:33 Sodium Chloride 1,000 ml @ 10 mls/hr Q24H IVLG 12/08/17 13:17 12/08/17 15:16 Temazepam (Restoril) 15 mg HSPRN PRN ORAL Insomnia 12/06/17 21:49 12/13/17 21:48 Otto Scanlon MD Dec 08, 2017 14:00
--- NOTE | 2017-12-08 17:00 | Procedure Note ---
DATE OF PROCEDURE: 12/08/2017 SURGEON: Zachary Ojeda M.D. ANESTHESIOLOGIST: Dr. Stewart. REFERRING PHYSICIAN: Wes Ramirez D.O. PROCEDURE: Upper endoscopy with biopsy. ANESTHESIA: Per Dr. Stewart. INSTRUMENT: Olympus adult flexible upper endoscope. INDICATION: Upper GI bleeding. The procedure, risks, benefits, and possible consequences, including hemorrhage, aspiration, perforation and infection, and alternative treatments, were explained to the patient/legal guardian by Dr. Zachary Ojeda and the patient/legal guardian understood and accepted these risks. DESCRIPTION OF PROCEDURE: After informed consent was obtained and the patient was adequately sedated, Olympus upper endoscope was advanced from the mouth into the second portion of duodenum and retroflexion was performed in the stomach. The patient had diffuse gastritis. Random biopsy from antrum was obtained to rule out H. pylori infection. There was no evidence of any obvious esophagitis. No large hiatal hernia. No gastric ulceration or duodenal ulceration. No evidence of any source of active upper GI bleeding at this time. The patient tolerated the procedure very well without any complication. SUMMARY OF FINDINGS: Gastritis, status post biopsy, otherwise normal upper endoscopic examination. RECOMMENDATIONS: Resume diet. Monitor hemoglobin and hematocrit. PPI daily. Okay to be discharged from GI standpoint. I want to thank Dr. Wes Ramirez for this kind referral. Zachary Ojeda M.D. DR: Kishor JOB#: [id number] CC: Wes Ramirez D.O.
--- NOTE | 2017-12-08 17:30 | Progress Note ---
DATE: 12/08/2017 NOTE: POOR AUDIO SUBJECTIVE: This is a 67-year-old male patient chest pain with GI problem altered mental status, confusion, worsened by stress of his medical illness. That is why, his attending physician has requested daily psychiatric consultation. MENTAL STATUS EXAMINATION: This is a 67-year-old male. Appearance is disheveled. Attitude, irritable and agitated. Affect, guarded and restricted. Intellect poor. Mood depressed and anxious. Motor activity, psychomotor agitation. Attention span is poor. Orientation x2. Speech is pressured. Thought process, disorganized and illogical. Thought content, he has some paranoid delusions . Insight and judgment is poor. DIAGNOSIS: Major depression with psychotic features. PLAN: Plan for this patient is to treat him negative thoughts and help him to convert them to more positive thoughts. cognitive therapy. Chart is reviewed. Discussed with staff. The patient is seen and assessed at bedside. Miguelina Cassidy M.D. DR: MARTIN JOB#: [id number] CC:
[2017-12-08] MEDS: Atorvastatin 20mg tab ORAL SCH (20:12)
--- NOTE | 2017-12-08 21:58 | General Progress Note ---
Assessment/Plan Problem List: (1) Diabetes mellitus ICD Codes: E11.9 - Type 2 diabetes mellitus without complications SNOMED: 90522875 (2) Hyperglycemia ICD Codes: R73.9 - Hyperglycemia, unspecified SNOMED: 47172341 (3) UGI bleed ICD Codes: K92.2 - Gastrointestinal hemorrhage, unspecified SNOMED: 54895826 (4) CAD (coronary artery disease) ICD Codes: I25.10 - Atherosclerotic heart disease of [place] coronary artery without angina pectoris SNOMED: 08422094 (5) Hyperlipidemia ICD Codes: E78.5 - Hyperlipidemia, unspecified SNOMED: 18259457 (6) HTN (hypertension) ICD Codes: I10 - Essential (primary) hypertension SNOMED: 06125097 (7) Chest pain ICD Codes: R07.9 - Chest pain, unspecified SNOMED: 27647302 Qualifiers: Qualified Codes: R07.9 - Chest pain, unspecified Status: progressing Assessment/Plan gi bleed no chest pain today afebrile vitals holding reviewed chart and labs Subjective ROS Limited/Unobtainable: Yes Allergies: Coded Allergies: AMPICILLIN (Verified Allergy, Unknown, 12/02/15) CODEINE (Verified Allergy, Unknown, 12/02/15) NSAIDS (NON-STEROIDAL ANTI-INFLAMMA (Verified Allergy, Unknown, 12/02/15) PEANUT (Verified Allergy, Unknown, 12/02/15) PENICILLINS (Verified Allergy, Unknown, 12/02/15) Objective Last 24 Hour Vital Signs Date Time Temp Pulse Resp B/P (MAP) Pulse Ox O2 Delivery O2 Flow Rate FiO2 12/08/17 21:00 Room Air 12/08/17 20:11 77 161/86 12/08/17 20:00 97.7 77 17 161/86 (111) 99 97.7 12/08/17 16:00 96.8 66 19 111/66 (81) 94 96.8 12/08/17 13:25 97.4 62 19 119/68 98 Room Air 97.4 12/08/17 13:24 206.8 65 18 100 12/08/17 13:23 206.8 69 18 100 12/08/17 13:15 63 17 123/66 100 Nasal Cannula 3 12/08/17 13:10 61 18 125/66 100 Nasal Cannula 3 12/08/17 13:04 97.1 65 16 125/65 100 Nasal Cannula 3 97.1 12/08/17 12:00 96.4 77 20 146/80 (102) 99 96.4 12/08/17 08:40 68 134/69 12/08/17 08:00 Room Air 12/08/17 08:00 96.3 68 19 134/69 (90) 100 96.3 12/08/17 04:00 99.7 87 19 129/73 (91) 97 99.7 12/08/17 00:49 166/96 12/08/17 00:00 97.2 72 19 166/96 (119) 98 97.2 Intake and Output 12/07/17 12/08/17 19:00 07:00 Intake Total 600 ml Output Total 750 ml 850 ml Balance -150 ml -850 ml Intake Oral 600 ml Output Urine Total 750 ml 850 ml Laboratory Tests 12/08/17 07:25: White Blood Count 5.3, Red Blood Count 4.23L, Hemoglobin 11.3L, Hematocrit 35.1L , Mean Corpuscular Volume 83, Mean Corpuscular Hemoglobin 26.8L, Mean Corpuscular Hemoglobin Concent 32.3, Red Cell Distribution Width 13.4, Platelet Count 203, Mean Platelet Volume 5.9L, Neutrophils (%) (Auto) 50.7, Lymphocytes ( %) (Auto) 30.8, Monocytes (%) (Auto) 10.2H, Eosinophils (%) (Auto) 7.4H, Basophils (%) (Auto) 0.9, Prothrombin Time 11.0, Prothromb Time International Ratio 1.0, Activated Partial Thromboplast Time 29, Sodium Level 139, Potassium Level 3.8, Chloride Level 102, Carbon Dioxide Level 30, Anion Gap 7, Blood Urea Nitrogen 10, Creatinine 1.0, Estimat Glomerular Filtration Rate > 60, Glucose Level 215H, Calcium Level 9.4 12/08/17 11:10: Stool Occult Blood [Pending] Height (Feet): 5 Height (Inches): 5.00 Weight (Pounds): 145 Respiratory/Chest: lungs clear Abdomen: soft Will Ghosh MD Dec 08, 2017 21:58
--- NOTE | 2017-12-08 23:53 | Cardiology Progress Note ---
Assessment/Plan Assessment/Plan 1. Chest pain, most likely noncardiac due to gastritis. 2. History of coronary artery disease, the detail of which is unknown and 12- lead electrocardiogram does not show any evidence of ischemia. 3. Mixed hyperlipidemia, could be secondary to hypothyroidism. 4. History of diabetes mellitus. Subjective Subjective No cardiac events. Objective Last 24 Hour Vital Signs Date Time Temp Pulse Resp B/P (MAP) Pulse Ox O2 Delivery O2 Flow Rate FiO2 12/08/17 21:00 Room Air 12/08/17 20:11 77 161/86 12/08/17 20:00 97.7 77 17 161/86 (111) 99 97.7 12/08/17 16:00 96.8 66 19 111/66 (81) 94 96.8 12/08/17 13:25 97.4 62 19 119/68 98 Room Air 97.4 12/08/17 13:24 206.8 65 18 100 12/08/17 13:23 206.8 69 18 100 12/08/17 13:15 63 17 123/66 100 Nasal Cannula 3 12/08/17 13:10 61 18 125/66 100 Nasal Cannula 3 12/08/17 13:04 97.1 65 16 125/65 100 Nasal Cannula 3 97.1 12/08/17 12:00 96.4 77 20 146/80 (102) 99 96.4 12/08/17 08:40 68 134/69 12/08/17 08:00 Room Air 12/08/17 08:00 96.3 68 19 134/69 (90) 100 96.3 12/08/17 04:00 99.7 87 19 129/73 (91) 97 99.7 12/08/17 00:49 166/96 12/08/17 00:00 97.2 72 19 166/96 (119) 98 97.2 Intake and Output 12/07/17 12/08/17 19:00 07:00 Intake Total 600 ml Output Total 750 ml 850 ml Balance -150 ml -850 ml Intake Oral 600 ml Output Urine Total 750 ml 850 ml 2D Echo: LVEF 60%, Mild LVH, Grade I LVDD, RVSP 19 mmHg Laboratory Tests Test 12/08/17 07:25 12/08/17 11:10 White Blood Count 5.3 K/UL (4.8-10.8) Red Blood Count 4.23 M/UL (4.70-6.10) L Hemoglobin 11.3 G/DL (14.2-18.0) L Hematocrit 35.1 % (42.0-52.0) L Mean Corpuscular Volume 83 FL (80-99) Mean Corpuscular Hemoglobin 26.8 PG (27.0-31.0) L Mean Corpuscular Hemoglobin Concent 32.3 G/DL (32.0-36.0) Red Cell Distribution Width 13.4 % (11.6-14.8) Platelet Count 203 K/UL (150-450) Mean Platelet Volume 5.9 FL (6.5-10.1) L Neutrophils (%) (Auto) 50.7 % (45.0-75.0) Lymphocytes (%) (Auto) 30.8 % (20.0-45.0) Monocytes (%) (Auto) 10.2 % (1.0-10.0) H Eosinophils (%) (Auto) 7.4 % (0.0-3.0) H Basophils (%) (Auto) 0.9 % (0.0-2.0) Prothrombin Time 11.0 SEC (9.30-11.50) Prothromb Time International Ratio 1.0 (0.9-1.1) Activated Partial Thromboplast Time 29 SEC (23-33) Sodium Level 139 MMOL/L (136-145) Potassium Level 3.8 MMOL/L (3.5-5.1) Chloride Level 102 MMOL/L (98-107) Carbon Dioxide Level 30 MMOL/L (21-32) Anion Gap 7 mmol/L (5-15) Blood Urea Nitrogen 10 mg/dL (7-18) Creatinine 1.0 MG/DL (0.55-1.30) Estimat Glomerular Filtration Rate > 60 mL/min (>60) Glucose Level 215 MG/DL (74-106) H Calcium Level 9.4 MG/DL (8.5-10.1) Stool Occult Blood Pending Objective HEENT: Atraumatic and normocephalic. Anicteric. Pupils are equal, round, and reactive to light and accommodation. Extraocular muscles are intact. NECK: JVP is less than 5 cm. No carotid bruits. Carotid upstrokes 2+ bilaterally. CARDIOVASCULAR: Normal S1 and S2. Regular rate and rhythm. No murmurs, gallops, or rubs. PMI is at fourth intercostal space in the midclavicular line. LUNGS: Clear to auscultation bilaterally. ABDOMEN: Soft, nontender, and nondistended. No hepatosplenomegaly. Positive bowel sounds. EXTREMITIES: No evidence of edema, clubbing, or cyanosis. Yonis Steinberg MD Dec 08, 2017 23:53
[2017-12-09] VITALS (8 sets, daily range): BP systolic 106–175; BP diastolic 53–98
[2017-12-09] MEDS: NovoLOG Insulin Flexpen SUBQ SCH ×4 (05:37→20:43)
[2017-12-09 08:37] LABS: BASOPHILS % (AUTO) 0.7 % (0.0-2.0); EOSINOPHILS % (AUTO) 8.3 % (0.0-3.0); HEMATOCRIT 32.7 % (42.0-52.0); HEMOGLOBIN 10.9 G/DL (14.2-18.0); LYMPHOCYTES % (AUTO) 30.6 % (20.0-45.0); MEAN CORPUSCULAR VOLUME 82 FL (80-99); MONOCYTES % (AUTO) 10.1 % (1.0-10.0); NEUTROPHILS % (AUTO) 50.3 % (45.0-75.0); PLATELET COUNT 200 K/UL (150-450); RED BLOOD COUNT 3.97 M/UL (4.70-6.10); WHITE BLOOD COUNT 5.8 K/UL (4.8-10.8)
[2017-12-09 08:54] LABS: ANION GAP 8 mmol/L (5-15); BLOOD UREA NITROGEN 12 mg/dL (7-18); CARBON DIOXIDE 28 MMOL/L (21-32); CHLORIDE 103 MMOL/L (98-107); SODIUM 139 MMOL/L (136-145)
[2017-12-09] MEDS: Docusate 100mg cap ORAL SCH ×2 (09:11→18:15)
[2017-12-09] MEDS: Carvedilol 6.25mg Tab ORAL SCH ×2 (09:12→20:42)
[2017-12-09] MEDS: Lisinopril 10mg tab ORAL SCH (09:12)
[2017-12-09] MEDS: Levemir Flexpen SUBQ SCH (09:13)
--- NOTE | 2017-12-09 11:14 | Cardiology Report ---
APPROVED REPORT EXAM: Two-dimensional and M-mode echocardiogram with Doppler and color Doppler. INDICATION Chest Pain M-Mode DIMENSIONS IVSd1.3 (0.7-1.1cm)Left Atrium (MM)3.4 (1.6-4.0cm) LVDd4.0 (3.5-5.6cm)Aortic Root3.3 (2.0-3.7cm) PWd1.4 (0.7-1.1cm)Aortic Cusp Exc.1.8 (1.5-2.0cm) IVSs1.6 cm LVDs2.3 (2.5-4.0cm) PWs1.6 cm Normal left ventricular chamber size, systolic function and wall motion . Left ventricular ejection fraction estimated to be 60-65% . Mild ventricular hypertrophy by 2-D. Small posterior pericardial effusion. All other cardiac chamber sizes are within normal limits . Focal aortic valve sclerosis with normal cusp excursion. Thickened mitral valve leaflets with normal excursion. Mitral annulus and aortic root calcification. Pulmonic valve not well visualized. Normal tricuspid valve structure. IVC at size 2.2cm with physiological collapse . A color flow and spectral Doppler study was performed and revealed: No aortic regurgitation. Trace mitral regurgitation. Mitral diastolic velocities suggest reduced left ventricular relaxation c/w mild LV diastolic dysfunction (Grade I ). Trace tricuspid regurgitation. Tricuspid systolic velocities suggests peak right ventricular systolic pressure of 19mmHg. Trace pulmonic regurgitation present .
--- NOTE | 2017-12-09 11:56 | Pulmonology Progress Note ---
Assessment/Plan Problems: (1) ACS (acute coronary syndrome) (2) UGI bleed (3) Costochondritis (4) CAD (coronary artery disease) (5) Diabetes mellitus (6) HTN (hypertension) (7) Hypothyroidism Assessment/Plan doing better no new complains EGD showed gastritis f/u H/H check stool for OB f/u GI recommendations sliding scale diabetic diet. dc planning Subjective ROS Limited/Unobtainable: No Constitutional: Reports: no symptoms Respiratory: Reports: no symptoms Allergies: Coded Allergies: AMPICILLIN (Verified Allergy, Unknown, 12/02/15) CODEINE (Verified Allergy, Unknown, 12/02/15) NSAIDS (NON-STEROIDAL ANTI-INFLAMMA (Verified Allergy, Unknown, 12/02/15) PEANUT (Verified Allergy, Unknown, 12/02/15) PENICILLINS (Verified Allergy, Unknown, 12/02/15) Objective Last 24 Hour Vital Signs Date Time Temp Pulse Resp B/P (MAP) Pulse Ox O2 Delivery O2 Flow Rate FiO2 12/09/17 11:51 97.3 72 23 133/76 (95) 97 97.3 12/09/17 09:12 128/60 12/09/17 09:12 60 128/60 12/09/17 09:00 Room Air 12/09/17 08:00 97.3 60 19 128/60 (82) 97 97.3 12/09/17 06:00 126/65 (85) 12/09/17 04:00 96.6 60 17 175/98 (123) 99 96.6 12/09/17 02:12 65 123/75 (91) 12/09/17 00:49 169/95 12/09/17 00:47 169/95 12/09/17 00:22 97.2 73 18 175/97 (123) 99 97.2 12/08/17 21:00 Room Air 12/08/17 20:11 77 161/86 12/08/17 20:00 97.7 77 17 161/86 (111) 99 97.7 12/08/17 16:00 96.8 66 19 111/66 (81) 94 96.8 12/08/17 13:25 97.4 62 19 119/68 98 Room Air 97.4 12/08/17 13:24 206.8 65 18 100 8/21/18 13:23 206.8 69 18 100 12/08/17 13:15 63 17 123/66 100 Nasal Cannula 3 12/08/17 13:10 61 18 125/66 100 Nasal Cannula 3 12/08/17 13:04 97.1 65 16 125/65 100 Nasal Cannula 3 97.1 12/08/17 12:00 96.4 77 20 146/80 (102) 99 96.4 Intake and Output 12/08/17 12/09/17 19:00 07:00 Intake Total 440 ml 320 ml Output Total 50 ml 700 ml Balance 390 ml -380 ml Intake Oral 240 ml 320 ml IV Total 200 ml Output Urine Total 50 ml 700 ml Estimated Blood Loss 0 ml # Voids 1 General Appearance: WD/WN HEENT: normocephalic, atraumatic Respiratory/Chest: chest wall non-tender, normal breath sounds Cardiovascular: normal peripheral pulses, normal rate Abdomen: normal bowel sounds, no organomegaly Genitourinary: normal external genitalia Extremities: no clubbing 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, no motor/sensory deficits Laboratory Tests 12/09/17 08:15: White Blood Count 5.8, Red Blood Count 3.97L, Hemoglobin 10.9L, Hematocrit 32.7L , Mean Corpuscular Volume 82, Mean Corpuscular Hemoglobin 27.5, Mean Corpuscular Hemoglobin Concent 33.3, Red Cell Distribution Width 13.0, Platelet Count 200, Mean Platelet Volume 5.6L, Neutrophils (%) (Auto) 50.3, Lymphocytes ( %) (Auto) 30.6, Monocytes (%) (Auto) 10.1H, Eosinophils (%) (Auto) 8.3H, Basophils (%) (Auto) 0.7, Sodium Level 139, Potassium Level 4.0, Chloride Level 103, Carbon Dioxide Level 28, Anion Gap 8, Blood Urea Nitrogen 12, Creatinine 1.0, Estimat Glomerular Filtration Rate > 60, Glucose Level 234H, Calcium Level 9.0 Current Medications Medications (Trade) Dose Ordered Sig/Stephanie Route PRN Reason Start Time Stop Time Status Last Admin Dose Admin Acetaminophen (Tylenol) 650 mg Q4H PRN ORAL fever 12/06/17 21:45 01/04/18 21:44 Al Hydroxide/Mg Hydroxide (Mylanta II) 30 ml Q6H PRN ORAL dyspepsia 12/06/17 21:45 01/05/18 21:44 Albuterol/ Ipratropium (Albuterol/ Ipratropium) 3 ml Q4H PRN HHN Shortness of Breath 12/06/17 21:46 12/11/17 21:45 Atorvastatin Calcium (Lipitor) 40 mg BEDTIME ORAL 12/07/17 21:00 01/04/18 20:59 12/08/17 20:12 Carvedilol (Coreg) 6.25 mg EVERY 12 HOURS ORAL 12/07/17 09:00 01/04/18 08:59 12/09/17 09:12 Clonidine HCl (Catapres Tab) 0.1 mg Q6H PRN ORAL sbp above 160 12/06/17 21:45 01/05/18 21:44 12/09/17 00:47 Dextrose (Dextrose 50%) 25 ml STAT PRN IV Hypoglycemia 12/07/17 07:45 01/04/18 07:44 Dextrose (Dextrose 50%) 50 ml STAT PRN IV Hypoglycemia 12/07/17 08:00 01/04/18 07:59 Diphenhydramine HCl (Benadryl) 25 mg Q6H PRN ORAL Itching/Pruritis 12/06/17 21:46 01/05/18 21:45 Docusate Sodium (Colace) 100 mg TWICE A DAY ORAL 12/07/17 09:00 01/05/18 08:59 12/09/17 09:11 Haloperidol Lactate (Haldol) 2 mg Q2H PRN IM Agitation 12/06/17 21:46 01/04/18 21:45 12/09/17 05:33 Insulin Aspart (NovoLOG) BEFORE MEALS AND HS SUBQ 12/07/17 06:30 01/04/18 11:29 12/09/17 11:48 Insulin Detemir (Levemir) 7 units DAILY SUBQ 12/07/17 09:00 01/05/18 11:59 12/09/17 09:13 Levothyroxine Sodium (Synthroid) 300 mcg Q24H ORAL 12/07/17 06:30 01/06/18 06:29 12/09/17 05:31 Lisinopril (Zestril) 10 mg DAILY ORAL 12/07/17 09:00 01/04/18 08:59 12/09/17 09:12 Lorazepam (Ativan) 1 mg Q6H PRN ORAL For Anxiety 12/06/17 21:48 12/12/17 21:47 12/09/17 00:06 Morphine Sulfate (Morphine Sulfate) 2 mg Q4H PRN IVP severe Pain (Pain Scale 7-10) 12/06/17 21:48 12/13/17 21:47 12/09/17 02:15 Nitroglycerin (Ntg) 0.4 mg Q5M X 3 DOSES PRN SL Prn Chest Pain 12/06/17 21:30 01/04/18 07:44 12/09/17 00:49 Ondansetron HCl (Zofran) 4 mg Q6H PRN IVP Nausea & Vomiting 12/06/17 21:48 01/05/18 21:47 12/09/17 02:14 Pantoprazole (Protonix) 40 mg DAILY ORAL 12/09/17 09:00 01/08/18 08:59 Polyethylene Glycol (Miralax) 17 gm HSPRN PRN ORAL Constipation 12/06/17 21:48 01/05/18 21:47 Risperidone (RisperDAL) 0.5 mg BID ORAL 12/07/17 09:00 01/04/18 17:59 12/09/17 09:12 Temazepam (Restoril) 15 mg HSPRN PRN ORAL Insomnia 12/06/17 21:49 12/13/17 21:48 12/08/17 20:24 Otto Scanlon MD Dec 09, 2017 11:56
--- NOTE | 2017-12-09 11:56 | GI Progress Note ---
Assessment/Plan Problems: (1) Anemia ICD Codes: D64.9 - Anemia, unspecified SNOMED: 720173996 (2) UGI bleed ICD Codes: K92.2 - Gastrointestinal hemorrhage, unspecified SNOMED: 02669788 (3) Dehydration ICD Codes: E86.0 - Dehydration SNOMED: 02556937 Status: stable Status Narrative Discussed with Dr. Ojeda. Assessment/Plan SUMMARY OF FINDINGS: Gastritis, status post biopsy, otherwise normal upper endoscopic examination. RECOMMENDATIONS: Resume diet. Monitor hemoglobin and hematocrit. PPI daily. Okay to be discharged from GI standpoint. Subjective Gastrointestinal/Abdominal: Reports: no symptoms Objective Last 24 Hour Vital Signs Date Time Temp Pulse Resp B/P (MAP) Pulse Ox O2 Delivery O2 Flow Rate FiO2 12/09/17 11:51 97.3 72 23 133/76 (95) 97 97.3 12/09/17 09:12 128/60 12/09/17 09:12 60 128/60 12/09/17 09:00 Room Air 12/09/17 08:00 97.3 60 19 128/60 (82) 97 97.3 12/09/17 06:00 126/65 (85) 12/09/17 04:00 96.6 60 17 175/98 (123) 99 96.6 12/09/17 02:12 65 123/75 (91) 12/09/17 00:49 169/95 12/09/17 00:47 169/95 12/09/17 00:22 97.2 73 18 175/97 (123) 99 97.2 12/08/17 21:00 Room Air 12/08/17 20:11 77 161/86 12/08/17 20:00 97.7 77 17 161/86 (111) 99 97.7 12/08/17 16:00 96.8 66 19 111/66 (81) 94 96.8 12/08/17 13:25 97.4 62 19 119/68 98 Room Air 97.4 12/08/17 13:24 206.8 65 18 100 12/08/17 13:23 206.8 69 18 100 12/08/17 13:15 63 17 123/66 100 Nasal Cannula 3 12/08/17 13:10 61 18 125/66 100 Nasal Cannula 3 12/08/17 13:04 97.1 65 16 125/65 100 Nasal Cannula 3 97.1 12/08/17 12:00 96.4 77 20 146/80 (102) 99 96.4 Intake and Output 12/08/17 12/09/17 19:00 07:00 Intake Total 440 ml 320 ml Output Total 50 ml 700 ml Balance 390 ml -380 ml Intake Oral 240 ml 320 ml IV Total 200 ml Output Urine Total 50 ml 700 ml Estimated Blood Loss 0 ml # Voids 1 Laboratory Tests Test 12/09/17 08:15 White Blood Count 5.8 K/UL (4.8-10.8) Red Blood Count 3.97 M/UL (4.70-6.10) L Hemoglobin 10.9 G/DL (14.2-18.0) L Hematocrit 32.7 % (42.0-52.0) L Mean Corpuscular Volume 82 FL (80-99) Mean Corpuscular Hemoglobin 27.5 PG (27.0-31.0) Mean Corpuscular Hemoglobin Concent 33.3 G/DL (32.0-36.0) Red Cell Distribution Width 13.0 % (11.6-14.8) Platelet Count 200 K/UL (150-450) Mean Platelet Volume 5.6 FL (6.5-10.1) L Neutrophils (%) (Auto) 50.3 % (45.0-75.0) Lymphocytes (%) (Auto) 30.6 % (20.0-45.0) Monocytes (%) (Auto) 10.1 % (1.0-10.0) H Eosinophils (%) (Auto) 8.3 % (0.0-3.0) H Basophils (%) (Auto) 0.7 % (0.0-2.0) Sodium Level 139 MMOL/L (136-145) Potassium Level 4.0 MMOL/L (3.5-5.1) Chloride Level 103 MMOL/L (98-107) Carbon Dioxide Level 28 MMOL/L (21-32) Anion Gap 8 mmol/L (5-15) Blood Urea Nitrogen 12 mg/dL (7-18) Creatinine 1.0 MG/DL (0.55-1.30) Estimat Glomerular Filtration Rate > 60 mL/min (>60) Glucose Level 234 MG/DL (74-106) H Calcium Level 9.0 MG/DL (8.5-10.1) Height (Feet): 5 Height (Inches): 5.00 Weight (Pounds): 143 General Appearance: WD/WN, no apparent distress, alert Cardiovascular: normal rate Respiratory/Chest: normal breath sounds, no respiratory distress Abdominal Exam: normal bowel sounds, non tender, soft Extremities: normal range of motion, non-tender Ayanna Duncan NP Dec 09, 2017 11:56
[2017-12-09] MEDS ORDERED: Lidocaine 1% MPF 10mg/ml 5ml ONE (12:30)
[2017-12-09] MEDS ORDERED: Propofol 200mg/20ml IV ONE (12:30)
--- NOTE | 2017-12-09 15:52 | General Progress Note ---
Assessment/Plan Problem List: (1) Diabetes mellitus ICD Codes: E11.9 - Type 2 diabetes mellitus without complications SNOMED: 27384852 (2) Hyperglycemia ICD Codes: R73.9 - Hyperglycemia, unspecified SNOMED: 78987364 (3) UGI bleed ICD Codes: K92.2 - Gastrointestinal hemorrhage, unspecified SNOMED: 34918383 (4) CAD (coronary artery disease) ICD Codes: I25.10 - Atherosclerotic heart disease of [place] coronary artery without angina pectoris SNOMED: 65402580 (5) Hyperlipidemia ICD Codes: E78.5 - Hyperlipidemia, unspecified SNOMED: 09770507 (6) HTN (hypertension) ICD Codes: I10 - Essential (primary) hypertension SNOMED: 25480498 (7) Chest pain ICD Codes: R07.9 - Chest pain, unspecified SNOMED: 02039238 Qualifiers: Qualified Codes: R07.9 - Chest pain, unspecified Status: progressing Assessment/Plan no gi bleed no chest pain checkc h/h dc planning afebrile no change Subjective ROS Limited/Unobtainable: Yes Allergies: Coded Allergies: AMPICILLIN (Verified Allergy, Unknown, 12/02/15) CODEINE (Verified Allergy, Unknown, 12/02/15) NSAIDS (NON-STEROIDAL ANTI-INFLAMMA (Verified Allergy, Unknown, 12/02/15) PEANUT (Verified Allergy, Unknown, 12/02/15) PENICILLINS (Verified Allergy, Unknown, 12/02/15) Objective Last 24 Hour Vital Signs Date Time Temp Pulse Resp B/P (MAP) Pulse Ox O2 Delivery O2 Flow Rate FiO2 12/09/17 11:51 97.3 72 23 133/76 (95) 97 97.3 12/09/17 09:12 128/60 12/09/17 09:12 60 128/60 12/09/17 09:00 Room Air 12/09/17 08:00 97.3 60 19 128/60 (82) 97 97.3 12/09/17 06:00 126/65 (85) 12/09/17 04:00 96.6 60 17 175/98 (123) 99 96.6 12/09/17 02:12 65 123/75 (91) 12/09/17 00:49 169/95 12/09/17 00:47 169/95 12/09/17 00:22 97.2 73 18 175/97 (123) 99 97.2 12/08/17 21:00 Room Air 12/08/17 20:11 77 161/86 12/08/17 20:00 97.7 77 17 161/86 (111) 99 97.7 12/08/17 16:00 96.8 66 19 111/66 (81) 94 96.8 Intake and Output 12/08/17 12/09/17 19:00 07:00 Intake Total 440 ml 320 ml Output Total 50 ml 700 ml Balance 390 ml -380 ml Intake Oral 240 ml 320 ml IV Total 200 ml Output Urine Total 50 ml 700 ml Estimated Blood Loss 0 ml # Voids 1 Laboratory Tests 12/09/17 08:15: White Blood Count 5.8, Red Blood Count 3.97L, Hemoglobin 10.9L, Hematocrit 32.7L , Mean Corpuscular Volume 82, Mean Corpuscular Hemoglobin 27.5, Mean Corpuscular Hemoglobin Concent 33.3, Red Cell Distribution Width 13.0, Platelet Count 200, Mean Platelet Volume 5.6L, Neutrophils (%) (Auto) 50.3, Lymphocytes ( %) (Auto) 30.6, Monocytes (%) (Auto) 10.1H, Eosinophils (%) (Auto) 8.3H, Basophils (%) (Auto) 0.7, Sodium Level 139, Potassium Level 4.0, Chloride Level 103, Carbon Dioxide Level 28, Anion Gap 8, Blood Urea Nitrogen 12, Creatinine 1.0, Estimat Glomerular Filtration Rate > 60, Glucose Level 234H, Calcium Level 9.0 Height (Feet): 5 Height (Inches): 5.00 Weight (Pounds): 143 Neck: supple Cardiovascular: normal rate Respiratory/Chest: lungs clear Will Ghosh MD Dec 09, 2017 15:52
[2017-12-09] MEDS: Atorvastatin 20mg tab ORAL SCH (20:41)
--- NOTE | 2017-12-09 23:50 | Cardiology Progress Note ---
Assessment/Plan Assessment/Plan 1. Chest pain, most likely noncardiac due to gastritis, 12-lead electrocardiogram does not show any evidence of ischemia. 2. History of coronary artery disease, the detail of which is unknown. 3. Mixed hyperlipidemia, could be secondary to hypothyroidism. 4. History of diabetes mellitus. Subjective Subjective No cardiac events. Objective Last 24 Hour Vital Signs Date Time Temp Pulse Resp B/P (MAP) Pulse Ox O2 Delivery O2 Flow Rate FiO2 12/09/17 21:00 Room Air 12/09/17 20:42 84 130/60 12/09/17 20:00 98.6 84 17 130/60 (83) 99 98.6 12/09/17 16:00 97.9 73 20 106/53 (70) 98 97.9 12/09/17 11:51 97.3 72 23 133/76 (95) 97 97.3 12/09/17 09:12 128/60 12/09/17 09:12 60 128/60 12/09/17 09:00 Room Air 12/09/17 08:00 97.3 60 19 128/60 (82) 97 97.3 12/09/17 06:00 126/65 (85) 12/09/17 04:00 96.6 60 17 175/98 (123) 99 96.6 12/09/17 02:12 65 123/75 (91) 12/09/17 00:49 169/95 12/09/17 00:47 169/95 12/09/17 00:22 97.2 73 18 175/97 (123) 99 97.2 Intake and Output 12/08/17 12/09/17 19:00 07:00 Intake Total 440 ml 320 ml Output Total 50 ml 700 ml Balance 390 ml -380 ml Intake Oral 240 ml 320 ml IV Total 200 ml Output Urine Total 50 ml 700 ml Estimated Blood Loss 0 ml # Voids 1 2D Echo: LVEF 60%, Mild LVH, Grade I LVDD, RVSP 19 mmHg Laboratory Tests Test 12/09/17 08:15 White Blood Count 5.8 K/UL (4.8-10.8) Red Blood Count 3.97 M/UL (4.70-6.10) L Hemoglobin 10.9 G/DL (14.2-18.0) L Hematocrit 32.7 % (42.0-52.0) L Mean Corpuscular Volume 82 FL (80-99) Mean Corpuscular Hemoglobin 27.5 PG (27.0-31.0) Mean Corpuscular Hemoglobin Concent 33.3 G/DL (32.0-36.0) Red Cell Distribution Width 13.0 % (11.6-14.8) Platelet Count 200 K/UL (150-450) Mean Platelet Volume 5.6 FL (6.5-10.1) L Neutrophils (%) (Auto) 50.3 % (45.0-75.0) Lymphocytes (%) (Auto) 30.6 % (20.0-45.0) Monocytes (%) (Auto) 10.1 % (1.0-10.0) H Eosinophils (%) (Auto) 8.3 % (0.0-3.0) H Basophils (%) (Auto) 0.7 % (0.0-2.0) Sodium Level 139 MMOL/L (136-145) Potassium Level 4.0 MMOL/L (3.5-5.1) Chloride Level 103 MMOL/L (98-107) Carbon Dioxide Level 28 MMOL/L (21-32) Anion Gap 8 mmol/L (5-15) Blood Urea Nitrogen 12 mg/dL (7-18) Creatinine 1.0 MG/DL (0.55-1.30) Estimat Glomerular Filtration Rate > 60 mL/min (>60) Glucose Level 234 MG/DL (74-106) H Calcium Level 9.0 MG/DL (8.5-10.1) Objective HEENT: Atraumatic and normocephalic. Anicteric. Pupils are equal, round, and reactive to light and accommodation. Extraocular muscles are intact. NECK: JVP is less than 5 cm. No carotid bruits. Carotid upstrokes 2+ bilaterally. CARDIOVASCULAR: Normal S1 and S2. Regular rate and rhythm. No murmurs, gallops, or rubs. PMI is at fourth intercostal space in the midclavicular line. LUNGS: Clear to auscultation bilaterally. ABDOMEN: Soft, nontender, and nondistended. No hepatosplenomegaly. Positive bowel sounds. EXTREMITIES: No evidence of edema, clubbing, or cyanosis. Yonis Steinberg MD Dec 09, 2017 23:50
[2017-12-10] VITALS: BP 111/57
--- NOTE | 2017-12-10 00:31 | Progress Note ---
DATE: 12/09/2017 NOTE: POOR AUDIO SUBJECTIVE: This is a 67-year-old male in the hospital secondary to chest pain, but he still has altered mental status, confusion, and mood lability worsened by the stress of his medical illness. That is why, his attending physician has requested daily psychiatric consultation. MENTAL STATUS EXAMINATION: This is a 67-year-old male. Appearance is disheveled. Attitude, irritable and agitated. Affect, guarded and restricted. Intellect poor. Mood is depressed and anxious. Motor activity, psychomotor agitation. Attention span is poor. Orientation x2. Speech is pressured. Thought process, disorganized and illogical. Thought content, auditory hallucinations and paranoid delusions. Insight and judgment is poor. DIAGNOSIS: PLAN: medication regimen consisting of to stabilize his mood. Provided 20 minutes of cognitive behavior therapy by identifying his automatic negative thoughts and help him to convert those to positive thoughts. The 20 minutes of cognitive behavior therapy and continued to be followed to stabilize his mood. Chart is reviewed. Discussed with staff. Seen and assessed in his room. Miguelina Cassidy M.D. DR: MARTIN JOB#: [id number] CC:
[2017-12-10 04:00] VITALS: BP 119/62
[2017-12-10] MEDS: NovoLOG Insulin Flexpen SUBQ SCH ×2 (06:14→11:53)
[2017-12-10] MEDS: Docusate 100mg cap ORAL SCH (07:56)
[2017-12-10] MEDS: Lisinopril 10mg tab ORAL SCH (07:57)
[2017-12-10] MEDS: Carvedilol 6.25mg Tab ORAL SCH (07:57)
[2017-12-10 08:00] VITALS: BP 139/68
[2017-12-10] MEDS: Levemir Flexpen SUBQ SCH (08:10)
--- NOTE | 2017-12-10 08:45 | Progress Note ---
DATE: 12/10/2017 SUBJECTIVE: This is a 67-year-old male. The patient was admitted to the hospital secondary to chest pain, but he still has mood lability, altered mental status, and worsened by stress of his medical illness. That is why, his attending physician has requested daily psychiatric consultation. MENTAL STATUS EVALUATION: The patient is 67-year-old male. Appearance is disheveled. Attitude, irritable and agitated. Affect, guarded and restricted. Intellect poor. Mood, depressed and anxious. Motor activity, psychomotor agitation. Attention span is poor. Orientation x2. Speech is pressured. Thought process is disorganized and illogical. Insight and judgment is poor. DIAGNOSIS: Major depression with psychotic features. PLAN: Continue him on psychotropic medications to stabilize the mood and reduce psychosis. Provided 20 minutes of cognitive behavior therapy by identifying his automatic negative thoughts and help him to convert those to positive thoughts. Provided 20 minutes of cognitive behavior therapy. Chart is reviewed. Discussed with staff. The patient is seen and assessed at bedside. Miguelina Cassidy M.D. DR: MARTIN JOB#: [id number] CC:
--- NOTE | 2017-12-10 11:53 | Pulmonology Progress Note ---
Assessment/Plan Problems: (1) ACS (acute coronary syndrome) (2) UGI bleed (3) Costochondritis (4) CAD (coronary artery disease) (5) Diabetes mellitus (6) HTN (hypertension) (7) Hypothyroidism Assessment/Plan doing better no new complains EGD showed gastritis f/u H/H check stool for OB f/u GI recommendations sliding scale diabetic diet. dc planning Subjective ROS Limited/Unobtainable: No Constitutional: Reports: no symptoms HEENT: Repors: no symptoms Respiratory: Reports: no symptoms Allergies: Coded Allergies: AMPICILLIN (Verified Allergy, Unknown, 12/02/15) CODEINE (Verified Allergy, Unknown, 12/02/15) NSAIDS (NON-STEROIDAL ANTI-INFLAMMA (Verified Allergy, Unknown, 12/02/15) PEANUT (Verified Allergy, Unknown, 12/02/15) PENICILLINS (Verified Allergy, Unknown, 12/02/15) Objective Last 24 Hour Vital Signs Date Time Temp Pulse Resp B/P (MAP) Pulse Ox O2 Delivery O2 Flow Rate FiO2 12/10/17 08:00 98.1 86 20 139/68 (91) 96 98.1 12/10/17 07:57 139/68 12/10/17 07:57 86 139/68 12/10/17 04:00 98.1 74 18 119/62 (81) 95 98.1 12/10/17 00:00 98.5 74 16 111/57 (75) 96 98.5 12/09/17 21:00 Room Air 12/09/17 20:42 84 130/60 12/09/17 20:00 98.6 84 17 130/60 (83) 99 98.6 12/09/17 16:00 97.9 73 20 106/53 (70) 98 97.9 Intake and Output 12/09/17 12/10/17 19:00 07:00 Intake Total 720 ml Balance 720 ml Intake Oral 720 ml # Voids 3 2 # Bowel Movements 1 General Appearance: WD/WN HEENT: normocephalic, atraumatic, anicteric Respiratory/Chest: chest wall non-tender, lungs clear Cardiovascular: normal peripheral pulses, normal rate Abdomen: normal bowel sounds, soft, non tender, no scars Current Medications Medications (Trade) Dose Ordered Sig/Stephanie Route PRN Reason Start Time Stop Time Status Last Admin Dose Admin Acetaminophen (Tylenol) 650 mg Q4H PRN ORAL fever 12/06/17 21:45 01/04/18 21:44 Al Hydroxide/Mg Hydroxide (Mylanta II) 30 ml Q6H PRN ORAL dyspepsia 12/06/17 21:45 01/05/18 21:44 Albuterol/ Ipratropium (Albuterol/ Ipratropium) 3 ml Q4H PRN HHN Shortness of Breath 12/06/17 21:46 12/11/17 21:45 Atorvastatin Calcium (Lipitor) 40 mg BEDTIME ORAL 12/07/17 21:00 01/04/18 20:59 12/09/17 20:41 Carvedilol (Coreg) 6.25 mg EVERY 12 HOURS ORAL 12/07/17 09:00 01/04/18 08:59 12/10/17 07:57 Clonidine HCl (Catapres Tab) 0.1 mg Q6H PRN ORAL sbp above 160 12/06/17 21:45 01/05/18 21:44 12/09/17 00:47 Dextrose (Dextrose 50%) 25 ml STAT PRN IV Hypoglycemia 12/07/17 07:45 01/04/18 07:44 Dextrose (Dextrose 50%) 50 ml STAT PRN IV Hypoglycemia 12/07/17 08:00 01/04/18 07:59 Diphenhydramine HCl (Benadryl) 25 mg Q6H PRN ORAL Itching/Pruritis 12/06/17 21:46 01/05/18 21:45 Docusate Sodium (Colace) 100 mg TWICE A DAY ORAL 12/07/17 09:00 01/05/18 08:59 12/10/17 07:56 Haloperidol Lactate (Haldol) 2 mg Q2H PRN IM Agitation 12/06/17 21:46 01/04/18 21:45 12/09/17 05:33 Insulin Aspart (NovoLOG) BEFORE MEALS AND HS SUBQ 12/07/17 06:30 01/04/18 11:29 12/10/17 06:14 Insulin Detemir (Levemir) 7 units DAILY SUBQ 12/07/17 09:00 01/05/18 11:59 12/10/17 08:10 Levothyroxine Sodium (Synthroid) 300 mcg Q24H ORAL 12/07/17 06:30 9/19/18 06:29 12/10/17 06:12 Lisinopril (Zestril) 10 mg DAILY ORAL 12/07/17 09:00 01/04/18 08:59 12/10/17 07:57 Lorazepam (Ativan) 1 mg Q6H PRN ORAL For Anxiety 12/06/17 21:48 12/12/17 21:47 12/09/17 00:06 Morphine Sulfate (Morphine Sulfate) 2 mg Q4H PRN IVP severe Pain (Pain Scale 7-10) 12/06/17 21:48 12/13/17 21:47 12/09/17 02:15 Nitroglycerin (Ntg) 0.4 mg Q5M X 3 DOSES PRN SL Prn Chest Pain 12/06/17 21:30 01/04/18 07:44 12/09/17 00:49 Ondansetron HCl (Zofran) 4 mg Q6H PRN IVP Nausea & Vomiting 12/06/17 21:48 01/05/18 21:47 12/09/17 02:14 Pantoprazole (Protonix) 40 mg DAILY ORAL 12/09/17 09:00 01/08/18 08:59 12/10/17 07:57 Polyethylene Glycol (Miralax) 17 gm HSPRN PRN ORAL Constipation 12/06/17 21:48 01/05/18 21:47 Risperidone (RisperDAL) 0.5 mg BID ORAL 12/07/17 09:00 01/04/18 17:59 12/10/17 07:57 Temazepam (Restoril) 15 mg HSPRN PRN ORAL Insomnia 12/06/17 21:49 12/13/17 21:48 12/08/17 20:24 Otto Scanlon MD Dec 10, 2017 11:53
--- NOTE | 2017-12-10 11:55 | General Progress Note ---
Assessment/Plan Problem List: (1) Diabetes mellitus ICD Codes: E11.9 - Type 2 diabetes mellitus without complications SNOMED: 56177141 (2) Hyperglycemia ICD Codes: R73.9 - Hyperglycemia, unspecified SNOMED: 57925189 (3) UGI bleed ICD Codes: K92.2 - Gastrointestinal hemorrhage, unspecified SNOMED: 83849105 (4) CAD (coronary artery disease) ICD Codes: I25.10 - Atherosclerotic heart disease of [place] coronary artery without angina pectoris SNOMED: 82837212 (5) Hyperlipidemia ICD Codes: E78.5 - Hyperlipidemia, unspecified SNOMED: 56182434 (6) HTN (hypertension) ICD Codes: I10 - Essential (primary) hypertension SNOMED: 20236908 (7) Chest pain ICD Codes: R07.9 - Chest pain, unspecified SNOMED: 17477867 Qualifiers: Qualified Codes: R07.9 - Chest pain, unspecified Status: progressing Assessment/Plan no gi bleed no chest pain will dc if ok w gi dr Subjective ROS Limited/Unobtainable: Yes Allergies: Coded Allergies: AMPICILLIN (Verified Allergy, Unknown, 12/02/15) CODEINE (Verified Allergy, Unknown, 12/02/15) NSAIDS (NON-STEROIDAL ANTI-INFLAMMA (Verified Allergy, Unknown, 12/02/15) PEANUT (Verified Allergy, Unknown, 12/02/15) PENICILLINS (Verified Allergy, Unknown, 12/02/15) Objective Last 24 Hour Vital Signs Date Time Temp Pulse Resp B/P (MAP) Pulse Ox O2 Delivery O2 Flow Rate FiO2 12/10/17 11:47 97.9 12/10/17 08:00 98.1 86 20 139/68 (91) 96 98.1 12/10/17 07:57 139/68 12/10/17 07:57 86 139/68 12/10/17 04:00 98.1 74 18 119/62 (81) 95 98.1 12/10/17 00:00 98.5 74 16 111/57 (75) 96 98.5 12/09/17 21:00 Room Air 12/09/17 20:42 84 130/60 12/09/17 20:00 98.6 84 17 130/60 (83) 99 98.6 12/09/17 16:00 97.9 73 20 106/53 (70) 98 97.9 Intake and Output 12/09/17 12/10/17 19:00 07:00 Intake Total 720 ml Balance 720 ml Intake Oral 720 ml # Voids 3 2 # Bowel Movements 1 Height (Feet): 5 Height (Inches): 5.00 Weight (Pounds): 143 Neck: supple Cardiovascular: normal rate Respiratory/Chest: lungs clear Will Ghosh MD Dec 10, 2017 11:55
[2017-12-10 12:00] VITALS: BP 132/83
--- NOTE | 2017-12-10 12:23 | GI Progress Note ---
Assessment/Plan Problems: (1) Anemia ICD Codes: D64.9 - Anemia, unspecified SNOMED: 020424385 (2) UGI bleed ICD Codes: K92.2 - Gastrointestinal hemorrhage, unspecified SNOMED: 90962984 (3) Dehydration ICD Codes: E86.0 - Dehydration SNOMED: 95404168 Status: stable Status Narrative Discussed with Dr. Ojeda. Assessment/Plan SUMMARY OF FINDINGS: Gastritis, status post biopsy, otherwise normal upper endoscopic examination. RECOMMENDATIONS: Resume diet. Monitor hemoglobin and hematocrit. PPI daily. Okay to be discharged from GI standpoint. Subjective Gastrointestinal/Abdominal: Reports: no symptoms Objective Last 24 Hour Vital Signs Date Time Temp Pulse Resp B/P (MAP) Pulse Ox O2 Delivery O2 Flow Rate FiO2 12/10/17 12:00 97.9 79 18 132/83 (99) 98 97.9 12/10/17 11:47 97.9 12/10/17 08:00 98.1 86 20 139/68 (91) 96 98.1 12/10/17 07:57 139/68 12/10/17 07:57 86 139/68 12/10/17 04:00 98.1 74 18 119/62 (81) 95 98.1 12/10/17 00:00 98.5 74 16 111/57 (75) 96 98.5 12/09/17 21:00 Room Air 12/09/17 20:42 84 130/60 12/09/17 20:00 98.6 84 17 130/60 (83) 99 98.6 12/09/17 16:00 97.9 73 20 106/53 (70) 98 97.9 Intake and Output 12/09/17 12/10/17 19:00 07:00 Intake Total 720 ml Balance 720 ml Intake Oral 720 ml # Voids 3 2 # Bowel Movements 1 Height (Feet): 5 Height (Inches): 5.00 Weight (Pounds): 143 General Appearance: WD/WN, no apparent distress, alert Cardiovascular: normal rate Respiratory/Chest: normal breath sounds, no respiratory distress Abdominal Exam: normal bowel sounds, non tender, soft Extremities: normal range of motion, non-tender Ayanna Duncan NP Dec 10, 2017 12:23
--- NOTE | 2017-12-10 15:42 | Nephrology Progress Note ---
Assessment/Plan Assessment 1. Acute versus chronic renal failure, the etiology of acute renal failure, unstable hemodynamics. 2. 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 3. Uncontrolled diabetes. 4. GI bleed. 5. Hypertension, which is uncontrolled at this time. Plan plan continue current iv monitoring renal function avoid NSAID replace electrolyte as need it Subjective Constitutional: Reports: no symptoms HEENT: Reports: no symptoms Genitourinary: Reports: no symptoms Neurologic/Psychiatric: Reports: no symptoms Objective Objective Last 24 Hour Vital Signs Date Time Temp Pulse Resp B/P (MAP) Pulse Ox O2 Delivery O2 Flow Rate FiO2 12/10/17 12:00 97.9 79 18 132/83 (99) 98 97.9 12/10/17 11:47 97.9 12/10/17 09:00 Room Air 12/10/17 08:00 98.1 86 20 139/68 (91) 96 98.1 12/10/17 07:57 139/68 12/10/17 07:57 86 139/68 12/10/17 04:00 98.1 74 18 119/62 (81) 95 98.1 12/10/17 00:00 98.5 74 16 111/57 (75) 96 98.5 12/09/17 21:00 Room Air 12/09/17 20:42 84 130/60 12/09/17 20:00 98.6 84 17 130/60 (83) 99 98.6 12/09/17 16:00 97.9 73 20 106/53 (70) 98 97.9 Intake and Output 12/09/17 12/10/17 19:00 07:00 Intake Total 720 ml Balance 720 ml Intake Oral 720 ml # Voids 3 2 # Bowel Movements 1 Height (Feet): 5 Height (Inches): 5.00 Weight (Pounds): 143 Objective GENERAL: He is well-developed, well-nourished male, in no acute distress. HEAD AND NECK: No JVP. No LAD. No thyromegaly. Extraocular movement intact. Pupils are reactive to light and accommodation. LUNGS: Clear to auscultation. CARDIAC: Regular rate and rhythm. S1 and S2. No murmur. No rub. ABDOMEN: Soft, nontender, and nondistended. EXTREMITIES: No edema. No clubbing. No cyanosis. Bahmani,Ailyn MD Dec 10, 2017 15:42
--- NOTE | 2017-12-11 00:48 | Cardiology Report ---
APPROVED REPORT EKG Measurement Heart [id number] [id number] Normal sinus rhythm Left axis deviation Inferior infarct, age undetermined Abnormal ECG
--- NOTE | 2017-12-11 14:40 | Discharge Summary ---
Discharge Summary Discharge Summary _ DATE OF ADMISSION: 12/05/2017 DATE OF DISCHARGE: 12/10/2017 CONSULTANTS: Dr. Ailyn Steinberg BRIEF HOSPITAL COURSE: Patient is a 67-year-old male, from [facility] presented with chest pain for 2 days, substernal, sharp and intermittent. There was no loss of consciousness. No radiation. There was reported coffee-ground emesis 3. He has medical history significant for hypertension, coronary artery disease , hyperlipidemia, hypothyroidism, COPD, diabetes mellitus and psychiatric history. On evaluation at ED, vital signs were stable. Blood work showed hemoglobin level of 12, hematocrit 37. INR was 1.0. Creatinine was elevated to 1.4, BUN was 24. Initial troponin was negative. He had an EKG done that showed normal sinus rhythm with no acute changes. Chest x-ray showed no acute disease. Due to his risk factors he was admitted for evaluation of GI bleed and chest pain. Serial troponins were negative. There was no EKG evidence of ischemia. He was given IV fluids. Unable to give aspirin due to GI bleed. He was given blood pressure control with beta blockers and darling inhibitors. Lipid panel was checked. He was given Lipitor 40 mg daily at bedtime. Echocardiogram done showed ejection fraction of 60-65%. Blood glucose was monitored. Patient was placed on insulin sliding scale. Hemoglobin A1c was 9.8. Levemir was added. Hemoglobin was monitored. Patient was started on PPI. Stool OB was negative. He underwent upper endoscopy with biopsy on 12/08/2017. Findings showed gastritis, otherwise normal upper endoscopic exam. Patient has history of paranoid schizophrenia and was having psychomotor agitation, irritability, mood lability worsened by his medical illness. He was given Risperdal twice a day and Ativan as needed. Renal function improved with hydration. Chest pain was assessed to be noncardiac, likely due to gastritis. Patient was then eventually cleared for discharge back to halfway. 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 DISCHARGE MEDICATIONS: Refer to Discharge Medication List. I have been assigned to dictate discharge summary on this account, and I was not involved in the patient's management. Tracy Joyner NP Dec 11, 2017 14:40
== END 2017-12-10 15:53 | DRG 378 ==
LOC: EDBD 03:36 → EMR 03:45 → EDBEDREQ 04:39 → 2E 05:03 → EDBEDREQ 05:15 → 4E 12-06 21:43
PROC: 0DB78ZX Excision of Stomach, Pylorus, Via Natural or Artificial Opening Endoscopic, Diagnostic (ICD-10-PCS; principal; 2017-12-08 12:49)
DX: K92.2 Gastrointestinal hemorrhage, unspecified (principal); N17.9 Acute kidney failure, unspecified; F20.0 Paranoid schizophrenia; F32.3 Major depressive disorder, single episode, severe with psychotic features; M94.0 Chondrocostal junction syndrome [Tietze]; Z88.0 Allergy status to penicillin; Z88.8 Allergy status to other drugs, medicaments and biological substances; Z88.6 Allergy status to analgesic agent; Z91.010 Allergy to peanuts; D64.9 Anemia, unspecified; R07.89 Other chest pain; E03.9 Hypothyroidism, unspecified; J44.9 Chronic obstructive pulmonary disease, unspecified; I10 Essential (primary) hypertension; N28.9 Disorder of kidney and ureter, unspecified; K29.70 Gastritis, unspecified, without bleeding; I25.10 Atherosclerotic heart disease of native coronary artery without angina pectoris; E78.2 Mixed hyperlipidemia; E11.65 Type 2 diabetes mellitus with hyperglycemia; I12.9 Hypertensive chronic kidney disease with stage 1 through stage 4 chronic kidney disease, or unspecified chronic kidney disease; E11.22 Type 2 diabetes mellitus with diabetic chronic kidney disease; N18.9 Chronic kidney disease, unspecified; Z87.820 Personal history of traumatic brain injury; Z79.4 Long term (current) use of insulin
CPT/HCPCS: 36415; 71045; 80048; 80053; 80061; 81001; 82043; 82044; 82150; 82270; 82550; 82553; 82570; 82962; 83036; 83690; 84300; 84439; 84443; 84484; 85025; 85610; 85730; 86850; 86900; 86901; 93005; 93306; 93970; 94003; 94150; 99285; J1815; J2405; S5561

== ENCOUNTER 2018-05-11 17:36 | Inpatient (IN) | payer MEDICARE, OTHER ==
[~2018-05-11] VITALS: Ht 172.7 cm; Wt 62.1 kg
[~2018-05-11 17:36] MED LIST changes: +ALBUTEROL2.5 MG/3 M INH; +COREG6.25 MG ORAL; +KLONOPIN0.5 MG ORAL; +LEVEMIR FL100 UNIT/1; -LEVEMIR FL100 UNIT/1 SUBQ; +PANTOPRAZOLE SO40 MG ORAL; +RESTORIL7.5 MG ORAL; +RISPERIDONE0.5 MG PO
[2018-05-11 17:50] VITALS: BP 160/86
--- NOTE | 2018-05-11 17:50 | NUR ---
ED Nurse Note: Pt BIBA from SNF due to general weakness and not taking enough nutritient for last few days. Pt AAO x3-4 but slow phase of speech. Pt denied any pain and reported that he does not have appetite for any food. Skin clean and intact but dry. No pressure ulcer noted from coccyx or heels areas. Calm and cooperative.
--- NOTE | 2018-05-11 18:23 | Emergency Room Report ---
History of Present Illness General Chief Complaint: Generalized Weakness Source: Patient, EMS Present Illness HPI 67-year-old male with multiple medical problems including history of intracranial hemorrhage status post crani sent by Wes Ramirez for failure to thrive, patient reports he has no complaints such as pain or following or vomiting, just reports he feels generalized weakness and has no appetite. Allergies: Coded Allergies: AMPICILLIN (Verified Allergy, Unknown, 12/02/15) CODEINE (Verified Allergy, Unknown, 12/02/15) NSAIDS (NON-STEROIDAL ANTI-INFLAMMA (Verified Allergy, Unknown, 12/02/15) PEANUT (Verified Allergy, Unknown, 12/02/15) PENICILLINS (Verified Allergy, Unknown, 12/02/15) Patient History Past Medical History: see triage record Reviewed Nursing Documentation: PMH: Agreed; PSxH: Agreed Nursing Documentation-PMH Past Medical History: No History, Except For Hx Hypertension: Yes Hx Pacemaker: No - HYPOTHYROIDISM Hx COPD: Yes Hx Diabetes: Yes Hx Cancer: No Hx Gastrointestinal Problems: No - pancreatitis,anemia History Of Psychiatric Problem: Yes - SCHIZO Hx Neurological Problems: No Hx Cerebrovascular Accident: Yes - subdural Hx Head Trauma: Yes - diffuse traumtic brain injury, without LOC Review of Systems All Other Systems: negative except mentioned in HPI Physical Exam Vital Signs Date Time Temp Pulse Resp B/P (MAP) Pulse Ox O2 Delivery O2 Flow Rate FiO2 05/11/18 17:33 98.2 80 18 149/84 97 Sp02 EP Interpretation: reviewed, normal General Appearance: no apparent distress, alert, non-toxic Head: normocephalic - old crani scar well healed, c/d/i Eyes: bilateral eye normal inspection, bilateral eye PERRL, bilateral eye EOMI ENT: normal ENT inspection, hearing grossly normal, normal pharynx, no angioedema, normal voice, moist mucus membranes Neck: normal inspection, full range of motion, supple, supple/symm/no masses Respiratory: chest non-tender, lungs clear, normal breath sounds, no rhonchi, no respiratory distress, no retraction, no accessory muscle use, chest symmetrical, palpation of chest normal Cardiovascular #1: normal peripheral pulses, regular rate, rhythm, no edema, no gallop, no JVD, no murmur, no rub Cardiovascular #2: 2+ radial (R), 2+ radial (L), 2+ dorsalis pedis (R), 2+ dorsalis pedis (L) Gastrointestinal: normal inspection, non tender, soft, no mass, no guarding, no rebound Rectal: deferred Genitourinary: normal inspection, no CVA tenderness Musculoskeletal: back normal, gait/station normal, normal range of motion, non- tender, no calf tenderness, Hossein's Sign negative Neurologic: alert, responsive, 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 Found to have possible UTI, given IV Zosyn, patient is remained hemodynamically stable, within the first 2 hours of his arrival received 30 mL per gave a fluid bolus, broad-spectrum antibiotics with blood cultures and lactic acid sent initial lactic acid elevated 4, patient no abdominal pain or abdominal tenderness, do not suspect any other acute illness other than he hydration UTI, patient is not develop any signs of shock, he had a repeat focused sepsis exam performed at 7 PM, he remained hemodynamically stable, will be admitted to Dr. Wes Ramirez EKG Diagnostic Results EKG Time: 18:03 EP Interpretation: no stemi Rate: normal Rhythm: NSR ST Segments: no acute changes ASA given to the pt in ED: No Rhythm Strip Diag. Results Rhythm Strip Time: 18:21 EP Interpretation: yes Rate: 81 Rhythm: NSR, no PVC's, no ectopy Chest X-Ray Diagnostic Results Chest X-Ray Diagnostic Results : Chest X-Ray Ordered: Yes # of Views/Limited/Complete: 1 View Indication: Other - malaise EP Interpretation: Yes Interpretation: no consolidation, no effusion, no pneumothorax, no acute cardiopulmonary disease, other - sternotomy wires intact Impression: No acute disease Electronically Signed by: Blanka David MD Last Vital Signs Date Time Temp Pulse Resp B/P (MAP) Pulse Ox O2 Delivery O2 Flow Rate FiO2 05/11/18 17:33 98.2 80 18 149/84 97 Disposition: ADMITTED INPATIENT Condition: Stable BLANKA DAVID M.D May 11, 2018 18:23
[2018-05-11 18:37] LABS: BASOPHILS % (AUTO) 1.1 % (0.0-2.0); EOSINOPHILS % (AUTO) 5.1 % (0.0-3.0); HEMOGLOBIN 10.9 G/DL (14.2-18.0); LYMPHOCYTES % (AUTO) 25.6 % (20.0-45.0); MEAN CORPUSCULAR VOLUME 82 FL (80-99); MONOCYTES % (AUTO) 5.3 % (1.0-10.0); NEUTROPHILS % (AUTO) 62.9 % (45.0-75.0); PLATELET COUNT 283 K/UL (150-450); RED BLOOD COUNT 4.14 M/UL (4.70-6.10); RED CELL DISTRIBUTION WIDTH 13.9 % (11.6-14.8)
[2018-05-11] MEDS ORDERED: DOCUSATE SODIU100 MG ORAL (18:41)
[2018-05-11 18:48] LABS: ANION GAP 11 mmol/L (5-15); BLOOD UREA NITROGEN 19 mg/dL (7-18); CALCIUM 10.1 MG/DL (8.5-10.1); CARBON DIOXIDE 27 MMOL/L (21-32); CHLORIDE 100 MMOL/L (98-107); CREATININE 1.3 MG/DL (0.55-1.30); POTASSIUM 4.5 MMOL/L (3.5-5.1); SODIUM 138 MMOL/L (136-145)
[2018-05-11 18:52] LABS: ALANINE AMINOTRANSFERASE 24 U/L (12-78); ALBUMIN 3.5 G/DL (3.4-5.0); ALBUMIN/GLOBULIN RATIO 0.7 (1.0-2.7); ALKALINE PHOSPHATASE 97 U/L (46-116); ASPARTATE AMINO TRANSFERASE 24 U/L (15-37); BILIRUBIN,TOTAL 0.2 MG/DL (0.2-1.0)
[2018-05-11] MEDS ORDERED: MIRTAZAPINE15 M3 ORAL (18:56)
[2018-05-11] MEDS ORDERED: BISACODYL10 M1 RC (18:56)
[2018-05-11] MEDS ORDERED: ACETAMINOPHEN325 M1 ORAL (18:56)
[2018-05-11] MEDS ORDERED: METFORMIN HCL1000 M1 ORAL (18:56)
--- NOTE | 2018-05-11 18:57 | NUR ---
ED Nurse Note: urine and MRSA/VRE/CRE cultures sent down to the lab.
--- NOTE | 2018-05-11 19:06 | NUR ---
HAND-OFF: Report given to DEWEY Howard. Pt stable in bed, all the lab and urine , swabs have been sent to lab.
[2018-05-11 19:11] LABS: APPEARANCE,URINE CLEAR; BILIRUBIN, URINE NEGATIVE (NEGATIVE); GLUCOSE, URINE (UA) 3+ (NEGATIVE); KETONES,URINE NEGATIVE (NEGATIVE); LEUKOCYTE ESTERASE ,URINE 1+ (NEGATIVE); NITRITE,URINE NEGATIVE (NEGATIVE); PH,URINE 5 (4.5-8.0); PROTEIN,URINE 2+ (NEGATIVE); UROBILINOGEN,URINE 1 MG/DL (0.0-1.0)
[2018-05-11 19:13] LABS: COLOR,URINE YELLOW
[2018-05-11] MEDS ORDERED: Piperacillin/Tazobactam 3.375 GM in NS 110 ML IVPB ONE (19:15)
[2018-05-11] MEDS ORDERED: SYNTHROID100 MCG ORAL (19:17)
[2018-05-11 19:23] VITALS: BP 166/85
[2018-05-11] MEDS ORDERED: Miralax 17gm pkt ORAL PRN (19:45)
[2018-05-11] MEDS ORDERED: Nitroglycerin Subl 0.4mg tab SL PRN (19:45)
[2018-05-11] MEDS ORDERED: Albuterol/Ipratropium 3ml neb HHN PRN (19:45)
[2018-05-11] MEDS ORDERED: Dextrose 50% 25ml Syringe IV PRN (20:00)
--- NOTE | 2018-05-11 21:03 | NUR ---
ED Nurse Note: PT is transfered to Med SURG with RN ALBERTO SCHWARTZ . pt has been transfered with all belongings. pt status, condition and vital signs is reported to ERMD prior to transfer and is reported to reciving RN. pt is stable for transfer.
[2018-05-11 21:13] VITALS: BP 161/82
--- NOTE | 2018-05-11 21:15 | NUR ---
NURSE NOTES: Received patient from ER via [place] with adm dx FFT under Dr Ramirez. A/O x 2 with confusion. On RA, no SOB, no acute distress. Skin intact, 20G on LAC intact, patent. Belongings checked, oriented pt to surroundings. Adm orders received from Dr Scanlon, carried out. Bed in lowest position, locked, alarms on. Call light in reach.
[2018-05-11 21:30] VITALS: BP 179/100
[2018-05-11] MEDS: clonazePAM 0.5mg tab ORAL SCH (22:02)
[2018-05-11] MEDS: Carvedilol 6.25mg Tab ORAL SCH (22:03)
[2018-05-11] MEDS: Aztreonam Inj 1 GM in NS 50 ML IVPB SCH (22:12)
[2018-05-11] MEDS: Vancomycin 750mg/NS 250ml IVPB SCH (22:59)
[2018-05-12] VITALS: BP 174/94
[2018-05-12] MEDS ORDERED: Vancomycin 1 GM in D5W 275 ML IV SCH (00:30)
[2018-05-12 04:00] VITALS: BP 164/94
[2018-05-12] MEDS: Aztreonam Inj 1 GM in NS 50 ML IVPB SCH ×3 (06:03→21:54)
[2018-05-12] MEDS: NovoLOG Insulin Flexpen SUBQ SCH ×4 (06:10→21:09)
[2018-05-12 07:17] LABS: BASOPHILS % (AUTO) 1.3 % (0.0-2.0); EOSINOPHILS % (AUTO) 4.5 % (0.0-3.0); HEMOGLOBIN 11.3 G/DL (14.2-18.0); MEAN CORPUSCULAR VOLUME 81 FL (80-99); NEUTROPHILS % (AUTO) 60.2 % (45.0-75.0); PLATELET COUNT 293 K/UL (150-450); RED BLOOD COUNT 4.18 M/UL (4.70-6.10); RED CELL DISTRIBUTION WIDTH 13.9 % (11.6-14.8); WHITE BLOOD COUNT 6.6 K/UL (4.8-10.8)
[2018-05-12 07:30] LABS: ALANINE AMINOTRANSFERASE 21 U/L (12-78); ALBUMIN 3.4 G/DL (3.4-5.0); ALBUMIN/GLOBULIN RATIO 0.7 (1.0-2.7); ALKALINE PHOSPHATASE 89 U/L (46-116); ANION GAP 10 mmol/L (5-15); ASPARTATE AMINO TRANSFERASE 21 U/L (15-37); BILIRUBIN,TOTAL 0.3 MG/DL (0.2-1.0); BLOOD UREA NITROGEN 11 mg/dL (7-18); CALCIUM 9.6 MG/DL (8.5-10.1); CARBON DIOXIDE 29 MMOL/L (21-32); CHLORIDE 101 MMOL/L (98-107); POTASSIUM 3.8 MMOL/L (3.5-5.1); SODIUM 139 MMOL/L (136-145)
--- NOTE | 2018-05-12 07:45 | NUR ---
HAND-OFF: Report given to Gulshan PALOMO.
--- NOTE | 2018-05-12 07:49 | NUR ---
NURSE NOTES: Received the patient from DEWEY Trevizo. Patient is awake, in bed.Patient is not in respiratory distress, in room air. Bed in the lowest position, with side rails up, call light within reach. Will continue to monitor patient.
[2018-05-12 08:00] VITALS: BP 142/86
--- NOTE | 2018-05-12 08:08 | General Progress Note ---
Progress Note Progress Note [id number] full consult dictated Ailyn Caputo MD May 12, 2018 08:08
[2018-05-12] MEDS ORDERED: clonazePAM 0.5mg tab ORAL SCH (09:00)
[2018-05-12] MEDS ORDERED: Carvedilol 6.25mg Tab ORAL SCH (09:00)
[2018-05-12] MEDS: Carvedilol 6.25mg Tab ORAL SCH ×2 (09:08→21:07)
[2018-05-12] MEDS: clonazePAM 0.5mg tab ORAL SCH ×2 (09:09→18:21)
[2018-05-12] MEDS: Heparin 5000 units/ml inj SUBQ SCH ×2 (09:10→21:08)
--- NOTE | 2018-05-12 10:16 | Diagnostic Imaging Report ---
Indication: Shortness of breath Technique: One view of the chest Comparison: 12/05/2017 Findings: The lungs and pleural spaces are clear. The heart size is normal. There are median sternotomy sutures. Vascular embolization coils are seen projected over the left chest. Findings are unchanged Impression: No acute process. Findings as noted
[2018-05-12 11:54] VITALS: BP 138/82
[2018-05-12] MEDS: Vancomycin 750mg/NS 250ml IVPB SCH ×2 (12:13→23:19)
--- NOTE | 2018-05-12 13:30 | Consultation ---
History of Present Illness General Date patient seen: May 12, 2018 Chief Complaint: Generalized Weakness Present Illness HPI 67-year-old male with a history of DM, HTN, hypothyroid, intracranial hemorrhage, s/p craniotomy, HTN, schizophrenia presented to ER with CC of failure to thrive. He was diagnosed to have UTI and admitted for further management. He just reports he feels generalized weakness and has no appetite. Allergies: Coded Allergies: AMPICILLIN (Verified Allergy, Unknown, 12/02/15) CODEINE (Verified Allergy, Unknown, 12/02/15) NSAIDS (NON-STEROIDAL ANTI-INFLAMMA (Verified Allergy, Unknown, 12/02/15) PEANUT (Verified Allergy, Unknown, 12/02/15) PENICILLINS (Verified Allergy, Unknown, 12/02/15) Medication History Scheduled Carvedilol (Coreg), 6.25 MG ORAL BID, (Reported) Clonazepam* (Klonopin*), 0.5 MG ORAL BID, (Reported) Docusate Sodium* (Docusate Sodium*), 100 MG ORAL DAILY, (Reported) Ferrous Sulfate* (Ferrous Sulfate*), 325 MG ORAL DAILY, (Reported) Levothyroxine Sodium* (Synthroid*), 300 MCG ORAL DAILY, (Reported) Metformin Hcl* (Metformin Hcl*), 1,000 MG ORAL BID, (Reported) Mirtazapine* (Mirtazapine*), 15 MG ORAL BEDTIME, (Reported) Multivitamin With Minerals (Multiple Vitamin), 1 EACH PO DAILY, (Reported) Pantoprazole* (Pantoprazole*), 40 MG ORAL DAILY, (Reported) Risperidone (Risperidone), 0.5 MG PO QHS, (Reported) Scheduled PRN Acetaminophen* (Acetaminophen 325MG Tablet*), 650 MG ORAL Q6H PRN for Mild Pain/ Temp > 100.5, (Reported) Bisacodyl (Bisacodyl), 10 MG RC for Constipation, (Reported) Magnesium Hydroxide* (Milk Of Magnesia*), 30 ML ORAL DAILY PRN for Constipation, (Reported) Miscellaneous Medications Insulin Detemir (Levemir Flexpen), (Reported) Nitroglycerin (Nitroglycerin), 0.4 MG SL, (Reported) Discontinued Medications Acetaminophen* (Tylenol Extra Strength*), 650 MG ORAL Q4HR PRN for Mild Pain/ Temp > 100.5, (Reported) Discontinued Reason: Prescription changed Albuterol Sulfate* (Albuterol Sulfate Hhn*), 3 ML INH Q4H PRN for Shortness of Breath, (Reported) Discontinued Reason: Therapy completed Ascorbic Acid* (Ascorbic Acid*), 500 MG ORAL DAILY, (Reported) Discontinued Reason: Therapy completed Aspirin* (Aspir 81*), 81 MG ORAL DAILY, (Reported) Discontinued Reason: Therapy completed Atorvastatin Calcium* (Atorvastatin Calcium*), 40 MG ORAL BEDTIME, (Reported) Discontinued Reason: Therapy completed Bisacodyl* (Dulcolax*), 10 MG RECTAL DAILY, (Reported) Discontinued Reason: Prescription changed Clindamycin Hcl (Cleocin Hcl), 300 MG PO Q6HR, (Reported) Discontinued Reason: Therapy completed Clonidine Hcl (Clonidine Hcl), 0.1 MG PO Q6HR, (Reported) Discontinued Reason: Therapy completed Heparin Sod (Porcine) (Heparin Sodium*), 5,000 UNITS SUBQ EVERY 12 HOURS, ( Reported) Discontinued Reason: Therapy completed Levothyroxine Sodium* (Levothyroxine Sodium*), 300 MCG ORAL DAILY, (Reported) Discontinued Reason: Prescription changed Lisinopril (Lisinopril*), 10 MG ORAL DAILY, (Reported) Discontinued Reason: Therapy completed Lorazepam* (Ativan*), 1 MG ORAL Q6HR, (Reported) Discontinued Reason: Therapy completed Metoprolol Tartrate* (Metoprolol Tartrate*), 25 MG ORAL BID, (Reported) Discontinued Reason: Therapy completed Mupirocin Calcium (Bactroban), 1 APPLIC TOPIC THREE TIMES A DAY, (Reported) Discontinued Reason: Therapy completed Na Phos,M-B/Na Phos,Di-Ba* (Fleet Enema*), 133 ML RECTAL DAILY, (Reported) Discontinued Reason: Therapy completed Nystatin* (Nystatin*), 5 ML ORAL FOUR TIMES A DAY, (Reported) Discontinued Reason: Therapy completed Temazepam* (Restoril*), 7.5 MG ORAL BEDTIME, (Reported) Discontinued Reason: Therapy completed Zolpidem Tartrate* (Ambien*), 5 MG ORAL BEDTIME PRN for Insomnia, (Reported) Discontinued Reason: Therapy completed Patient History Healthcare decision maker Resuscitation status Full Code Advanced Directive on File Yes Past Medical/Surgical History Past Medical/Surgical History: (1) Anemia (2) HTN (hypertension) (3) Hypothyroidism (4) CAD (coronary artery disease) (5) Diabetes mellitus Physical Exam General Appearance: WD/WN, no apparent distress Lines, tubes and drains: peripheral, central line HEENT: normocephalic, atraumatic Neck: non-tender, normal alignment Respiratory/Chest: chest wall non-tender, normal breath sounds Breasts: no masses Cardiovascular/Chest: normal peripheral pulses Abdomen: normal bowel sounds Genitourinary/Rectal: normal genital exam Extremities: normal range of motion Skin Exam: normal pigmentation Last 24 Hour Vital Signs Date Time Temp Pulse Resp B/P (MAP) Pulse Ox O2 Delivery O2 Flow Rate FiO2 05/12/18 11:54 97.6 79 18 138/82 (100) 99 05/12/18 09:08 80 142/86 05/12/18 08:00 97.0 80 18 142/86 (104) 98 05/12/18 04:00 96.7 82 17 164/94 (117) 97 05/12/18 00:00 96.8 75 19 174/94 (120) 99 05/11/18 23:10 Room Air 05/11/18 22:03 83 179/100 05/11/18 21:30 98.0 83 20 179/100 (126) 99 05/11/18 21:15 99.1 80 17 161/82 94 Room Air 94 05/11/18 21:13 99.1 80 17 161/82 94 Room Air 05/11/18 19:23 99.1 82 18 166/85 94 Room Air 05/11/18 17:50 84 19 Room Air 94 05/11/18 17:50 99.1 84 18 160/86 94 Room Air 05/11/18 17:33 98.2 80 18 149/84 97 Intake and Output 05/11/18 05/12/18 19:00 07:00 Intake Total 0 ml 950 ml Output Total 1250 ml Balance 0 ml -300 ml Intake Oral 0 ml 650 ml IV Total 300 ml Output Urine Total 1250 ml Laboratory Tests Test 05/11/18 18:15 05/11/18 19:00 05/11/18 19:45 05/12/18 05:40 White Blood Count 6.0 K/UL (4.8-10.8) 6.6 K/UL (4.8-10.8) Red Blood Count 4.14 M/UL (4.70-6.10) L 4.18 M/UL (4.70-6.10) L Hemoglobin 10.9 G/DL (14.2-18.0) L 11.3 G/DL (14.2-18.0) L Hematocrit 34.0 % (42.0-52.0) L 34.0 % (42.0-52.0) L Mean Corpuscular Volume 82 FL (80-99) 81 FL (80-99) Mean Corpuscular Hemoglobin 26.2 PG (27.0-31.0) L 27.0 PG (27.0-31.0) Mean Corpuscular Hemoglobin Concent 32.0 G/DL (32.0-36.0) 33.2 G/DL (32.0-36.0) Red Cell Distribution Width 13.9 % (11.6-14.8) 13.9 % (11.6-14.8) Platelet Count 283 K/UL (150-450) 293 K/UL (150-450) Mean Platelet Volume 6.4 FL (6.5-10.1) L 5.8 FL (6.5-10.1) L Neutrophils (%) (Auto) 62.9 % (45.0-75.0) 60.2 % (45.0-75.0) Lymphocytes (%) (Auto) 25.6 % (20.0-45.0) 26.0 % (20.0-45.0) Monocytes (%) (Auto) 5.3 % (1.0-10.0) 8.0 % (1.0-10.0) Eosinophils (%) (Auto) 5.1 % (0.0-3.0) H 4.5 % (0.0-3.0) H Basophils (%) (Auto) 1.1 % (0.0-2.0) 1.3 % (0.0-2.0) Sodium Level 138 MMOL/L (136-145) 139 MMOL/L (136-145) Potassium Level 4.5 MMOL/L (3.5-5.1) 3.8 MMOL/L (3.5-5.1) Chloride Level 100 MMOL/L (98-107) 101 MMOL/L (98-107) Carbon Dioxide Level 27 MMOL/L (21-32) 29 MMOL/L (21-32) Anion Gap 11 mmol/L (5-15) 10 mmol/L (5-15) Blood Urea Nitrogen 19 mg/dL (7-18) H 11 mg/dL (7-18) Creatinine 1.3 MG/DL (0.55-1.30) 1.0 MG/DL (0.55-1.30) Estimat Glomerular Filtration Rate 55.4 mL/min (>60) > 60 mL/min (>60) Glucose Level 194 MG/DL (74-106) H 152 MG/DL (74-106) H Lactic Acid Level 4.10 mmol/L (0.4-2.0) H 1.70 mmol/L (0.66-2.22) Calcium Level 10.1 MG/DL (8.5-10.1) 9.6 MG/DL (8.5-10.1) Magnesium Level 1.1 MG/DL (1.8-2.4) L Total Bilirubin 0.2 MG/DL (0.2-1.0) 0.3 MG/DL (0.2-1.0) Aspartate Amino Transf (AST/SGOT) 24 U/L (15-37) 21 U/L (15-37) Alanine Aminotransferase (ALT/SGPT) 24 U/L (12-78) 21 U/L (12-78) Alkaline Phosphatase 97 U/L (46-116) 89 U/L (46-116) Troponin I 0.016 ng/mL (0.000-0.056) Total Protein 8.6 G/DL (6.4-8.2) H 8.3 G/DL (6.4-8.2) H Albumin 3.5 G/DL (3.4-5.0) 3.4 G/DL (3.4-5.0) Globulin 5.1 g/dL 4.9 g/dL Albumin/Globulin Ratio 0.7 (1.0-2.7) L 0.7 (1.0-2.7) L Urine Color Yellow Urine Appearance Clear Urine pH 5 (4.5-8.0) Urine Specific Kipling 1.015 (1.005-1.035) Urine Protein 2+ (NEGATIVE) H Urine Glucose (UA) 3+ (NEGATIVE) H Urine Ketones Negative (NEGATIVE) Urine Blood 5+ (NEGATIVE) H Urine Nitrite Negative (NEGATIVE) Urine Bilirubin Negative (NEGATIVE) Urine Urobilinogen 1 MG/DL (0.0-1.0) H Urine Leukocyte Esterase 1+ (NEGATIVE) H Urine RBC 5-10 /HPF (0 - 0) H Urine WBC 2-4 /HPF (0 - 0) Urine Squamous Epithelial Cells None /LPF (NONE/OCC) Urine Bacteria Few /HPF (NONE) Height (Feet): 5 Height (Inches): 8.00 Weight (Pounds): 137 Medications Current Medications Medications (Trade) Dose Ordered Sig/Stephanie Route PRN Reason Start Time Stop Time Status Last Admin Dose Admin Acetaminophen (Tylenol) 650 mg Q4H PRN ORAL fever 05/11/18 19:45 06/10/18 19:44 Albuterol/ Ipratropium (Albuterol/ Ipratropium) 3 ml Q4H PRN HHN Shortness of Breath 05/11/18 19:45 05/16/18 19:44 Aztreonam 1 gm/ Sodium Chloride 50 ml @ 100 mls/hr EVERY 8 HOURS IVPB 05/11/18 22:00 05/18/18 21:59 05/12/18 06:03 Carvedilol (Coreg) 6.25 mg Q12HR ORAL 05/11/18 21:54 06/10/18 21:53 05/12/18 09:08 Clonazepam (KlonoPIN) 0.5 mg BID ORAL 05/11/18 21:55 05/18/18 21:54 05/12/18 09:09 Dextrose (Dextrose 50%) 25 ml Q30M PRN IV Hypoglycemia 05/11/18 20:00 06/10/18 19:48 Dextrose (Dextrose 50%) 50 ml Q30M PRN IV hypoglycemia 05/11/18 20:00 06/10/18 19:59 Heparin Sodium (Porcine) (Heparin 5000 units/ml) 5,000 units EVERY 12 HOURS SUBQ 05/12/18 09:00 06/11/18 08:59 05/12/18 09:10 Insulin Aspart (NovoLOG) BEFORE MEALS AND HS SUBQ 05/12/18 06:30 06/11/18 06:29 05/12/18 12:11 Levothyroxine Sodium (Synthroid) 300 mcg Q24H ORAL 05/12/18 06:30 06/11/18 06:29 05/12/18 06:03 Mirtazapine (Remeron) 15 mg BEDTIME ORAL 05/11/18 21:54 06/10/18 21:53 05/11/18 22:03 Nitroglycerin (Ntg) 0.4 mg Q5M PRN SL Prn Chest Pain 05/11/18 19:45 06/10/18 19:44 Ondansetron HCl (Zofran) 4 mg Q6H PRN IVP Nausea & Vomiting 05/11/18 19:45 06/10/18 19:44 Polyethylene Glycol (Miralax) 17 gm DAILYPRN PRN ORAL Constipation 05/11/18 19:45 06/10/18 19:44 Temazepam (Restoril) 15 mg HSPRN PRN ORAL Insomnia 05/11/18 19:45 05/18/18 19:44 05/11/18 22:03 Vancomycin HCl (Vanco rx to dose) 1 ea DAILY PRN MISC PER PHARMACY 05/11/18 21:15 06/10/18 21:14 Vancomycin/Sodium Chloride 250 ml @ 166.667 mls/hr Q12H IVPB 05/11/18 23:00 05/16/18 22:59 05/12/18 12:13 Assessment/Plan Problem List: (1) UTI (urinary tract infection) ICD Codes: N39.0 - Urinary tract infection, site not specified SNOMED: 75375804 (2) Episode of generalized weakness ICD Codes: R53.1 - Weakness SNOMED: 62741219 (3) Anemia ICD Codes: D64.9 - Anemia, unspecified SNOMED: 964259792 (4) HTN (hypertension) ICD Codes: I10 - Essential (primary) hypertension SNOMED: 64021086 (5) Hypothyroidism ICD Codes: E03.9 - Hypothyroidism, unspecified SNOMED: 33603504 (6) CAD (coronary artery disease) ICD Codes: I25.10 - Atherosclerotic heart disease of [place] coronary artery without angina pectoris SNOMED: 18574015 (7) Diabetes mellitus ICD Codes: E11.9 - Type 2 diabetes mellitus without complications SNOMED: 13687825 Assessment/Plan hernández cultures IV abx check electrolytes sliding scale insulin coverage dvt prophylaxis. Otto Scanlon MD May 12, 2018 13:30
[2018-05-12 16:00] VITALS: BP 136/79
--- NOTE | 2018-05-12 16:07 | NUR ---
PORTER HEADSUSPENSION CORD TIER 67 YO MALE LUANNE FROM [facility] TO ER CC DECREASED ORAL INTAKE SI: FAILURE TO THRIVE T. 98.3 HR 80 RR 18 B/P 149/84 LACTID ACID 4.00 UA+PROTEIN,GLUCOSE,LEUKOCYTE ESTERASE,RBC CXR= NO ACUTE PROCESS IS: IV NS X 1 LITER ZOSYN IV ADMITTED TO TELE TELE STATUS
--- NOTE | 2018-05-12 17:15 | History and Physical Report ---
DATE OF ADMISSION: 05/11/2018 TIME SEEN: 2 p.m. CONSULTANTS: 1. Otto Scanlon M.D. 2. Dion Devlin M.D 3. Miguelina Cassidy M.D. 4. Ailyn Caputo M.D. CHIEF COMPLAINT: Weakness, lethargy, UTI, lactic acidosis. BRIEF HISTORY: This is a 67-year-old male from [facility], presented with increasing weakness and lethargy, diagnosed with UTI and lactic acidosis, admitted to medical floor for further treatment. Currently, slightly confused in bed, answering a few simple questions, no complaint. REVIEW OF SYSTEMS: No chest pain. No shortness of breath. No nausea, vomiting, or diarrhea. PAST MEDICAL HISTORY: Includes weakness, hypertension, hypothyroid, diabetes, dehydration. PAST SURGICAL HISTORY: Unknown. MEDICATIONS: Include , carvedilol, heparin, levothyroxine, insulin, vancomycin, aztreonam, clonazepam, mirtazapine, albuterol, Zofran. ALLERGIES: Ampicillin, Codeine, NSAID SOCIAL HISTORY: No smoking. No alcohol. No intravenous drug abuse. FAMILY HISTORY: Noncontributory. PHYSICAL EXAMINATION: GENERAL: Calm in bed, oriented x1, in no acute distress. VITAL SIGNS: Temperature is 97 degrees, pulse 79, respiratory rate 18, blood pressure 132/82. CARDIOVASCULAR: No murmur. LUNGS: Poor air exchange. ABDOMEN: Bowel sounds distant. EXTREMITIES: Show no cyanosis or edema. NEUROLOGIC: The patient moves all extremities, slightly weak. LABORATORY DATA: Hemoglobin and hematocrit 11/34, otherwise CBC is normal. BMP show glucose 152, otherwise BMP is normal. Urinalysis show 5+ blood, 1+ leukocyte esterase. ASSESSMENT: 1. Urinary tract infection. 2. Weakness. 3. Hypertension. 4. Lactic acidosis. 5. Hypothyroid. 6. Diabetes. 7. Dehydration. 8. Anemia. PLAN: 1. PT and dietary evaluation. 2. CBC and BMP in the morning. 3. IV fluids. 4. Antibiotics per Infectious Disease. 5. Blood pressure and blood sugar control. 6. Dietary followup. 7. Psychiatric treatment. Wes Ramirez, D.O. DR: Carmen JOB#: [id number] CC:
--- NOTE | 2018-05-12 17:30 | Consultation ---
DATE OF CONSULTATION: 05/12/2018 NEPHROLOGY CONSULTATION CONSULTING PHYSICIAN: Ailyn Caputo M.D. REFERRING PHYSICIAN: Wes Ramirez D.O. REASON FOR CONSULTATION: Acute renal failure, lactic acidosis, and hypomagnesemia. HISTORY OF PRESENT ILLNESS: The patient is an unfortunate 67-year-old male with multiple medical problems including history of hypothyroidism, hypertension, history of diabetes, history of subdural hematoma, status post craniotomy, history of schizophrenia, and history of anemia, who was sent to the emergency room at [facility] for evaluation of failure to thrive. Apparently, the patient had a very low oral intake, was sent to ER, the patient found to have an UTI, abnormal electrolyte, was admitted in Med/Surg unit. I was called for management of renal disease and electrolyte imbalance. ALLERGIES: The patient is allergic to: 1. Ampicillin. 2. Codeine. 3. Peanuts. 4. Penicillin. PAST MEDICAL HISTORY: Includin. History of hypertension. 2. History of hypothyroidism. 3. History of COPD. 4. History of diabetes. 5. History of anemia. 6. History of schizophrenia. 7. History of subdural hematoma. 8. History of brain injury. FAMILY HISTORY: Noncontributory. SOCIAL HISTORY: He lives at [facility]. There is no history of current tobacco, alcohol, or drug use. REVIEW OF SYSTEMS: GENERAL: The patient at this time is alert and awake. He denies any fever, chills, or night sweats. HEAD AND NECK: Denies any dysphagia, odynophagia, blurry vision, headache, or neck stiffness. PULMONARY: No shortness of breath. No cough or sputum. CARDIOVASCULAR: No chest pain. GASTROINTESTINAL: Decreased oral intake. No nausea or vomiting. Occasional constipation. GENITOURINARY: Denies any dysuria, frequency, or hematuria. MUSCULOSKELETAL: He complained of generalized weakness. Denies any localized weakness or numbness. MEDICATIONS: Home medications are includin. Colace 100 mg daily. 2. Clonazepam p.r.n. at bedtime. 3. Protonix 40 mg daily. PHYSICAL EXAMINATION: VITAL SIGNS: The patient has a temperature of 98 degrees, blood pressure of 149/84, pulse rate of 80, and respiratory rate of 18. HEAD AND NECK: No JVP. No LAD. No thyromegaly. Extraocular movement intact. Pupils are reactive to light and accommodation. LUNGS: Clear to auscultation. CARDIAC: Regular rate and rhythm. S1 and S2. No murmur. No rub. ABDOMEN: Soft, nontender, and nondistended. EXTREMITIES: No edema. No clubbing. No cyanosis. LABORATORY AND DIAGNOSTIC DATA: Laboratory value, the patient has UA, which revealed specific gravity of 1.015, protein 2+, glucose 3+, blood 5+, and leukocyte esterase +1, rbc of 5 to 10, wbc of 2 to 4. Chemistry revealed sodium 139, potassium 3.8, chloride 101, bicarb 29, BUN 11, creatinine , glucose of 152. . Lactic acid of 4.1. Magnesium was 1.1. Total protein of 8.3, albumin of 3.4. CBC revealed WBC count of 6.6, hemoglobin of 11.3, hematocrit of 34, and platelet count 239. UA revealed specific gravity of 1.015, protein 2+, glucose 3+, blood 5+, leukocyte esterase +1, rbc's 5 to 10. ASSESSMENT: 1. Urinary tract infection and proteinuria, not sure if the proteinuria is as a result of the urinary tract infection. I would recommend a clean-catch urine. 2. Hypomagnesemia. 3. Lactic acidosis. 4. Anemia. 5. Hypertension. 6. Diabetes. PLAN: Plan for this patient is to obtain UA. Check the random urine, protein creatinine ratio to calculate the proteinuria. Check the urine sodium and creatinine to calculate fractional excretion of sodium. I will repeat the UA. I will check the A1c. Recommended A1c for this patient is 6 to 7. I will also repeat the magnesium level. Check the prealbumin level for nutritional status. At the end, I would like to thank Dr. Wes Ramirez for allowing me to participate in the care of this patient. Ailyn Caputo M.D. DR: ARGENIS JOB#: [id number] CC:
--- NOTE | 2018-05-12 18:26 | Cardiology Report ---
APPROVED REPORT EKG Measurement Heart [id number] Normal sinus rhythm Left axis deviation Inferior infarct, age undetermined Abnormal ECG
--- NOTE | 2018-05-12 19:01 | NUR ---
HAND-OFF: Report given to DEWEY Mckeon.
--- NOTE | 2018-05-12 19:14 | NUR ---
HAND-OFF: Report given to Azar PALOMO.
--- NOTE | 2018-05-12 19:21 | NUR ---
NURSE NOTES: Received report from DEWEY Flores. Patient is asleep lying semi-solano's; resting comfortably. Arousable to verbal and tactile stimuli. No signs of acute distress noted; denies pain at this time. AOx1-2; able to make needs known to a limited degree and follow commands. Checked IV site; patent and flushed. No erythema, bleeding, or infiltration noted. Bed at lowest position, brakes on, siderails up x3. Call light within reach. Will continue to monitor.
[2018-05-12 20:00] VITALS: BP 133/71
[2018-05-13] VITALS: BP 97/54
[2018-05-13 04:00] VITALS: BP 128/69
--- NOTE | 2018-05-13 04:09 | NUR ---
NURSE NOTES: Patient is asleep lying semi-solano's; resting comfortably. No signs of acute distress or pain noted at this time. Condom catheter draining well to gravity.
[2018-05-13] MEDS: Aztreonam Inj 1 GM in NS 50 ML IVPB SCH ×3 (05:39→21:24)
[2018-05-13] MEDS: NovoLOG Insulin Flexpen SUBQ SCH ×4 (05:42→21:24)
--- NOTE | 2018-05-13 07:36 | NUR ---
HAND-OFF: Report given to DEWEY Candelaria and DEWEY Kerr. Patient is asleep lying semi-solano's; resting comfortably. In stable condition.
--- NOTE | 2018-05-13 07:56 | NUR ---
NURSE NOTES: received report from DEWEY Mckeon. patient in bed. awake, limited degree of verbal communication. no respiratory distress noted. no c/o pain noted. condom cath intact. draining well. bed in lowest position. call light within reach. will continue to monitor.
[2018-05-13 08:00] VITALS: BP 129/84
--- NOTE | 2018-05-13 08:45 | NUR ---
PT EVALUATION NOTE: Patient seen for initial evaluation, see complete evaluation for details. Patient will be seen for 3 day trial to assess ability to participate and progress with physical therapy intervention. Patient able to follow commands however requires much encouragement to participate and demonstrates limited initiative. Patient with flexed bilateral LEs with resistance to ROM. Patient requires max assist for bed mobility and to maintain sitting at the EOB. Patient unable to attempt transfers at this time. Recommend SNF at [place]. Addendum: 05/13/18 at 1256 by LOVE THOMAS PT Amended: Links added.
[2018-05-13] MEDS: Carvedilol 6.25mg Tab ORAL SCH ×2 (09:01→21:22)
[2018-05-13] MEDS: Heparin 5000 units/ml inj SUBQ SCH ×2 (09:02→21:23)
[2018-05-13] MEDS: clonazePAM 0.5mg tab ORAL SCH ×2 (09:02→17:31)
[2018-05-13 10:38] LABS: ANION GAP 9 mmol/L (5-15); BLOOD UREA NITROGEN 13 mg/dL (7-18); CALCIUM 8.4 MG/DL (8.5-10.1); CARBON DIOXIDE 27 MMOL/L (21-32); CHLORIDE 105 MMOL/L (98-107); CREATININE 0.9 MG/DL (0.55-1.30); SODIUM 140 MMOL/L (136-145)
[2018-05-13 10:48] LABS: BASOPHILS % (AUTO) 1.4 % (0.0-2.0); EOSINOPHILS % (AUTO) 7.2 % (0.0-3.0); HEMATOCRIT 31.3 % (42.0-52.0); HEMOGLOBIN 10.5 G/DL (14.2-18.0); LYMPHOCYTES % (AUTO) 29.5 % (20.0-45.0); MEAN CORPUSCULAR VOLUME 81 FL (80-99); MONOCYTES % (AUTO) 8.9 % (1.0-10.0); PLATELET COUNT 226 K/UL (150-450); RED BLOOD COUNT 3.88 M/UL (4.70-6.10); RED CELL DISTRIBUTION WIDTH 14.2 % (11.6-14.8); WHITE BLOOD COUNT 4.9 K/UL (4.8-10.8)
--- NOTE | 2018-05-13 10:58 | NUR ---
RD ASSESSMENT & RECOMMENDATIONS SEE CARE ACTIVITY FOR COMPLETE ASSESSMENT DAILY ESTIMATED NEEDS: Needs based on diabetes, possible wt loss/ 62kg 28-33 kcals/kg 6504-1684 total kcals 1-1.5 g protein/kg 62-93 g total protein 25-30 mL/kg 1620-6288 total fluid mLs NUTRITION DIAGNOSIS: (1) Altered nutrition related lab values R/T DM2, clinical condition as evidenced by elev BG and POC glu (112-242), A1C of 7.1 on 03/23/18, low mag (1.1). (2) Inadequate energy intake R/T decreased appetite as evidenced by pt admitted w/ FTT dx, possible significant wt loss of 21 lbs/13.3% in 5 months. CURRENT DIET:CCHO MED PO DIET RECOMMENDATIONS: CCHO MED/ texture as tolerated + Glucerna 1 tetra bridget TID ADDITIONAL RECOMMENDATIONS: * Calibrated bedscale wt for accurate CBW * Weekly wt monitoring given possible recent significant wt loss * Consider Calorie Count x 48 hrs * MVI x 1 as supplement * Monitor lytes, replete as needed (low mag 1.1, no updated level)
[2018-05-13] MEDS: Vancomycin 750mg/NS 250ml IVPB SCH ×2 (11:17→22:09)
[2018-05-13 12:00] VITALS: BP 122/63
--- NOTE | 2018-05-13 12:00 | NUR ---
ADJUDICATION SPECIALISTDAIRY FARMER SI: UTI,FAILURE TO THRIVE T. 98.0 HR 70 RR 18 B/P 97/54 IS: VANCO IV AZTREONAM IV ALB HHN MED/SURG STATUS
--- NOTE | 2018-05-13 12:02 | Nephrology Progress Note ---
Assessment/Plan Assessment 1. Urinary tract infection and proteinuria, 2. Hypomagnesemia. 3. Lactic acidosis. 4. Anemia. 5. Hypertension. 6. Diabetes. Plan continue current iv monitoring renal function avoid NSAID replace electrolyte as need it Subjective Constitutional: Reports: no symptoms HEENT: Reports: no symptoms Genitourinary: Reports: no symptoms Neurologic/Psychiatric: Reports: no symptoms Subjective no acute events Objective Objective Last 24 Hour Vital Signs Date Time Temp Pulse Resp B/P (MAP) Pulse Ox O2 Delivery O2 Flow Rate FiO2 05/13/18 09:01 75 129/84 05/13/18 09:00 Room Air 05/13/18 08:00 97.7 75 18 129/84 (99) 99 05/13/18 04:00 98.0 70 17 128/69 (88) 98 05/13/18 00:00 98.0 72 18 97/54 (68) 97 05/12/18 21:07 69 133/71 05/12/18 20:00 97.7 69 18 133/71 (91) 98 05/12/18 16:00 97.8 77 18 136/79 (98) 98 Intake and Output 05/12/18 05/13/18 19:00 07:00 Intake Total 590 ml Output Total 400 ml Balance 190 ml Intake Oral 240 ml IV Total 350 ml Output Urine Total 400 ml Laboratory Tests 05/13/18 10:00: White Blood Count 4.9, Red Blood Count 3.88L, Hemoglobin 10.5L, Hematocrit 31.3L , Mean Corpuscular Volume 81, Mean Corpuscular Hemoglobin 27.1, Mean Corpuscular Hemoglobin Concent 33.6, Red Cell Distribution Width 14.2, Platelet Count 226, Mean Platelet Volume 5.9L, Neutrophils (%) (Auto) 53.0, Lymphocytes ( %) (Auto) 29.5, Monocytes (%) (Auto) 8.9, Eosinophils (%) (Auto) 7.2H, Basophils (%) (Auto) 1.4, Sodium Level 140, Potassium Level 4.0, Chloride Level 105, Carbon Dioxide Level 27, Anion Gap 9, Blood Urea Nitrogen 13, Creatinine 0.9, Estimat Glomerular Filtration Rate > 60, Glucose Level 127H, Calcium Level 8.4L, Vancomycin Level Trough 12.7H Height (Feet): 5 Height (Inches): 8.00 Weight (Pounds): 137 Objective HEAD AND NECK: No JVP. No LAD. No thyromegaly. Extraocular movement intact. Pupils are reactive to light and accommodation. LUNGS: Clear to auscultation. CARDIAC: Regular rate and rhythm. S1 and S2. No murmur. No rub. ABDOMEN: Soft, nontender, and nondistended. EXTREMITIES: No edema. No clubbing. No cyanosis. Ailyn Caputo MD May 13, 2018 12:02
--- NOTE | 2018-05-13 14:15 | Pulmonology Progress Note ---
Assessment/Plan Problems: (1) UTI (urinary tract infection) (2) Episode of generalized weakness (3) Anemia (4) HTN (hypertension) (5) Hypothyroidism (6) CAD (coronary artery disease) (7) Diabetes mellitus Assessment/Plan improving cultures still pending sliding scale psych to follow pt/ot check T3, T4 and TSH. dvt prophylaxis. Subjective ROS Limited/Unobtainable: No Constitutional: Reports: no symptoms HEENT: Repors: no symptoms Respiratory: Reports: no symptoms Allergies: Coded Allergies: AMPICILLIN (Verified Allergy, Unknown, 12/02/15) CODEINE (Verified Allergy, Unknown, 12/02/15) NSAIDS (NON-STEROIDAL ANTI-INFLAMMA (Verified Allergy, Unknown, 12/02/15) PEANUT (Verified Allergy, Unknown, 12/02/15) PENICILLINS (Verified Allergy, Unknown, 12/02/15) Objective Last 24 Hour Vital Signs Date Time Temp Pulse Resp B/P (MAP) Pulse Ox O2 Delivery O2 Flow Rate FiO2 05/13/18 12:00 97.5 75 18 122/63 (82) 98 05/13/18 09:01 75 129/84 05/13/18 09:00 Room Air 05/13/18 08:00 97.7 75 18 129/84 (99) 99 05/13/18 04:00 98.0 70 17 128/69 (88) 98 05/13/18 00:00 98.0 72 18 97/54 (68) 97 05/12/18 21:07 69 133/71 05/12/18 20:00 97.7 69 18 133/71 (91) 98 05/12/18 16:00 97.8 77 18 136/79 (98) 98 Intake and Output 05/12/18 05/13/18 19:00 07:00 Intake Total 590 ml Output Total 400 ml Balance 190 ml Intake Oral 240 ml IV Total 350 ml Output Urine Total 400 ml General Appearance: WD/WN HEENT: normocephalic, atraumatic Respiratory/Chest: chest wall non-tender, lungs clear Cardiovascular: normal peripheral pulses, normal rate Abdomen: normal bowel sounds, soft, non tender Genitourinary: normal external genitalia Skin: no rash Microbiology Date/Time Source Procedure Growth Status 05/11/18 18:15 Blood Blood Culture - Preliminary NO GROWTH AFTER 24 HOURS Resulted 05/11/18 18:00 Blood Blood Culture - Preliminary NO GROWTH AFTER 24 HOURS Resulted 05/11/18 18:30 Rectum VRE Culture Pending Resulted 05/11/18 18:30 Rectum - Preliminary Resulted Laboratory Tests 05/13/18 10:00: White Blood Count 4.9, Red Blood Count 3.88L, Hemoglobin 10.5L, Hematocrit 31.3L , Mean Corpuscular Volume 81, Mean Corpuscular Hemoglobin 27.1, Mean Corpuscular Hemoglobin Concent 33.6, Red Cell Distribution Width 14.2, Platelet Count 226, Mean Platelet Volume 5.9L, Neutrophils (%) (Auto) 53.0, Lymphocytes ( %) (Auto) 29.5, Monocytes (%) (Auto) 8.9, Eosinophils (%) (Auto) 7.2H, Basophils (%) (Auto) 1.4, Sodium Level 140, Potassium Level 4.0, Chloride Level 105, Carbon Dioxide Level 27, Anion Gap 9, Blood Urea Nitrogen 13, Creatinine 0.9, Estimat Glomerular Filtration Rate > 60, Glucose Level 127H, Calcium Level 8.4L, Vancomycin Level Trough 12.7H Current Medications Medications (Trade) Dose Ordered Sig/Stephanie Route PRN Reason Start Time Stop Time Status Last Admin Dose Admin Acetaminophen (Tylenol) 650 mg Q4H PRN ORAL fever 05/11/18 19:45 06/10/18 19:44 Albuterol/ Ipratropium (Albuterol/ Ipratropium) 3 ml Q4H PRN HHN Shortness of Breath 05/11/18 19:45 05/16/18 19:44 Aztreonam 1 gm/ Sodium Chloride 50 ml @ 100 mls/hr EVERY 8 HOURS IVPB 05/11/18 22:00 05/18/18 21:59 05/13/18 05:39 Carvedilol (Coreg) 6.25 mg Q12HR ORAL 05/11/18 21:54 06/10/18 21:53 05/13/18 09:01 Clonazepam (KlonoPIN) 0.5 mg BID ORAL 05/11/18 21:55 05/18/18 21:54 05/13/18 09:02 Dextrose (Dextrose 50%) 25 ml Q30M PRN IV Hypoglycemia 05/11/18 20:00 06/10/18 19:48 Dextrose (Dextrose 50%) 50 ml Q30M PRN IV hypoglycemia 05/11/18 20:00 06/10/18 19:59 Heparin Sodium (Porcine) (Heparin 5000 units/ml) 5,000 units EVERY 12 HOURS SUBQ 05/12/18 09:00 06/11/18 08:59 05/13/18 09:02 Insulin Aspart (NovoLOG) BEFORE MEALS AND HS SUBQ 05/12/18 06:30 06/11/18 06:29 05/13/18 11:38 Levothyroxine Sodium (Synthroid) 300 mcg Q24H ORAL 05/12/18 06:30 06/11/18 06:29 05/13/18 05:38 Mirtazapine (Remeron) 15 mg BEDTIME ORAL 05/11/18 21:54 06/10/18 21:53 05/11/18 22:03 Nitroglycerin (Ntg) 0.4 mg Q5M PRN SL Prn Chest Pain 05/11/18 19:45 06/10/18 19:44 Ondansetron HCl (Zofran) 4 mg Q6H PRN IVP Nausea & Vomiting 05/11/18 19:45 06/10/18 19:44 Polyethylene Glycol (Miralax) 17 gm DAILYPRN PRN ORAL Constipation 05/11/18 19:45 06/10/18 19:44 Temazepam (Restoril) 15 mg HSPRN PRN ORAL Insomnia 05/11/18 19:45 05/18/18 19:44 05/11/18 22:03 Vancomycin HCl (Vanco rx to dose) 1 ea DAILY PRN MISC PER PHARMACY 05/11/18 21:15 06/10/18 21:14 Vancomycin/Sodium Chloride 250 ml @ 166.667 mls/hr Q12H IVPB 05/11/18 23:00 05/16/18 22:59 05/13/18 11:17 Otto Scanlon MD May 13, 2018 14:14
--- NOTE | 2018-05-13 15:03 | General Progress Note ---
Assessment/Plan Problem List: (1) UTI (urinary tract infection) ICD Codes: N39.0 - Urinary tract infection, site not specified SNOMED: 85980583 (2) Diabetes mellitus ICD Codes: E11.9 - Type 2 diabetes mellitus without complications SNOMED: 56849363 (3) HTN (hypertension) ICD Codes: I10 - Essential (primary) hypertension SNOMED: 38524685 (4) Anemia ICD Codes: D64.9 - Anemia, unspecified SNOMED: 159974991 (5) Episode of generalized weakness ICD Codes: R53.1 - Weakness SNOMED: 50143027 Status: unchanged Assessment/Plan pt diet abx bs control cbc bmp am Subjective Constitutional: Reports: weakness Allergies: Coded Allergies: AMPICILLIN (Verified Allergy, Unknown, 12/02/15) CODEINE (Verified Allergy, Unknown, 12/02/15) NSAIDS (NON-STEROIDAL ANTI-INFLAMMA (Verified Allergy, Unknown, 12/02/15) PEANUT (Verified Allergy, Unknown, 12/02/15) PENICILLINS (Verified Allergy, Unknown, 12/02/15) All Systems: reviewed and negative except above Subjective sleepy calm Objective Last 24 Hour Vital Signs Date Time Temp Pulse Resp B/P (MAP) Pulse Ox O2 Delivery O2 Flow Rate FiO2 05/13/18 12:00 97.5 75 18 122/63 (82) 98 05/13/18 09:01 75 129/84 05/13/18 09:00 Room Air 05/13/18 08:00 97.7 75 18 129/84 (99) 99 05/13/18 04:00 98.0 70 17 128/69 (88) 98 05/13/18 00:00 98.0 72 18 97/54 (68) 97 05/12/18 21:07 69 133/71 05/12/18 20:00 97.7 69 18 133/71 (91) 98 05/12/18 16:00 97.8 77 18 136/79 (98) 98 Intake and Output 05/12/18 05/13/18 19:00 07:00 Intake Total 590 ml Output Total 400 ml Balance 190 ml Intake Oral 240 ml IV Total 350 ml Output Urine Total 400 ml Laboratory Tests 05/13/18 10:00: White Blood Count 4.9, Red Blood Count 3.88L, Hemoglobin 10.5L, Hematocrit 31.3L , Mean Corpuscular Volume 81, Mean Corpuscular Hemoglobin 27.1, Mean Corpuscular Hemoglobin Concent 33.6, Red Cell Distribution Width 14.2, Platelet Count 226, Mean Platelet Volume 5.9L, Neutrophils (%) (Auto) 53.0, Lymphocytes ( %) (Auto) 29.5, Monocytes (%) (Auto) 8.9, Eosinophils (%) (Auto) 7.2H, Basophils (%) (Auto) 1.4, Sodium Level 140, Potassium Level 4.0, Chloride Level 105, Carbon Dioxide Level 27, Anion Gap 9, Blood Urea Nitrogen 13, Creatinine 0.9, Estimat Glomerular Filtration Rate > 60, Glucose Level 127H, Calcium Level 8.4L, Vancomycin Level Trough 12.7H Height (Feet): 5 Height (Inches): 8.00 Weight (Pounds): 137 General Appearance: lethargic EENT: normal ENT inspection Neck: normal alignment Cardiovascular: normal peripheral pulses, normal rate, regular rhythm Respiratory/Chest: chest wall non-tender, lungs clear, normal breath sounds Abdomen: normal bowel sounds, non tender, soft Extremities: normal inspection Edema: no edema noted Arm (L), no edema noted Arm (R), no edema noted Leg (L), no edema noted Leg (R), no edema noted Pedal (L), no edema noted Pedal (R), no edema noted Generalized Neurologic: responsive, motor weakness Skin: normal pigmentation, warm/dry Wes Ramirez DO May 13, 2018 15:03
[2018-05-13 16:00] VITALS: BP 117/79
--- NOTE | 2018-05-13 19:08 | NUR ---
HAND-OFF: Report given to DEWEY Brown.
--- NOTE | 2018-05-13 19:30 | NUR ---
NURSE NOTES: Received patient in no apparent distress. A&OX2. IV site patent and intact. Bed in lowest position. Call light within reach. Will continue to monitor.
[2018-05-13 20:00] VITALS: BP 148/68
[2018-05-14] VITALS: BP 158/70
--- NOTE | 2018-05-14 02:00 | Consultation ---
DATE OF CONSULTATION: 05/12/2018 PSYCHOTHERAPY CONSULTATION PROGRESS NOTE CONSULTING PHYSICIAN: Raven Sharp PsyD. TREATING ATTENDING PHYSICIAN: Wes Ramirez D.O. HISTORY OF PRESENT ILLNESS: This is a 67-year-old male patient who was brought in from [facility] for failure to thrive. The patient has increased schizophrenia. The patient has been very helpless and hopeless and for these reasons, he was referred to psychotherapeutic services. This clinician assessed this patient. The patient fatigue and tired, decrease in energy. He has been very helpless, however, denies suicidal or homicidal thoughts of ideation. Denies any auditory or visual hallucinations. He remains helpless and hopeless and has very poor level of motivation, low energy, unable to identify why he . PAST MEDICAL HISTORY: History of hypertension, COPD, hypothyroidism, acute kidney injury. ALLERGIES: The patient has no known drug allergies. SUBSTANCE ABUSE HISTORY: There is no indication of alcohol use, illicit substance use, or smoking cigarettes. PSYCHIATRIC HISTORY: The patient has a history of paranoid schizophrenia and has been treated with psychotropic medications in the past SOCIAL HISTORY: The patient is a 67-year-old single male patient from [facility]. Financially sustained through August. MENTAL STATUS EXAMINATION: The patient is alert and oriented to person and place. Mood is dysphoric. Affect blunted. Thought process, disorganized. Thought content is confused. There is poor attention and concentration. Poor insight, judgment, and impulse control. DIAGNOSIS: Paranoid schizophrenia. PLAN: This clinician assessed the patient. Provided the patient with reality orientation, supportive psychotherapy, cognitive function confused and disoriented. Oriented to person, place, time, and situation. Provided the patient with supportive psychotherapy addressing the patient's feelings of helplessness and hopeless, encouraging the patient to participate in treatment milieu . This clinician has reviewed the patient's chart. Discussed the treatment with treatment team. Raven Sharp PsyD. DR: Devaughn JOB#: [id number] CC:
[2018-05-14 04:00] VITALS: BP 145/91
[2018-05-14 04:23] LABS: APPEARANCE,URINE CLEAR; BILIRUBIN, URINE NEGATIVE (NEGATIVE); COLOR,URINE PALE YELLOW; GLUCOSE, URINE (UA) NEGATIVE (NEGATIVE); KETONES,URINE NEGATIVE (NEGATIVE); LEUKOCYTE ESTERASE ,URINE NEGATIVE (NEGATIVE); NITRITE,URINE NEGATIVE (NEGATIVE); PH,URINE 7 (4.5-8.0); PROTEIN,URINE NEGATIVE (NEGATIVE); UROBILINOGEN,URINE 1 MG/DL (0.0-1.0)
[2018-05-14] MEDS: Aztreonam Inj 1 GM in NS 50 ML IVPB SCH (05:50)
[2018-05-14] MEDS: NovoLOG Insulin Flexpen SUBQ SCH ×4 (06:27→20:19)
--- NOTE | 2018-05-14 07:30 | NUR ---
HAND-OFF: Report given to Mare PALOMO.
[2018-05-14 07:37] LABS: BASOPHILS % (AUTO) 1.2 % (0.0-2.0); EOSINOPHILS % (AUTO) 8.5 % (0.0-3.0); HEMATOCRIT 32.5 % (42.0-52.0); HEMOGLOBIN 10.8 G/DL (14.2-18.0); LYMPHOCYTES % (AUTO) 32.4 % (20.0-45.0); MEAN CORPUSCULAR VOLUME 82 FL (80-99); MONOCYTES % (AUTO) 9.9 % (1.0-10.0); NEUTROPHILS % (AUTO) 48.1 % (45.0-75.0); PLATELET COUNT 235 K/UL (150-450); RED BLOOD COUNT 3.98 M/UL (4.70-6.10); RED CELL DISTRIBUTION WIDTH 14.2 % (11.6-14.8)
[2018-05-14 07:53] LABS: ANION GAP 10 mmol/L (5-15); BLOOD UREA NITROGEN 15 mg/dL (7-18); CALCIUM 8.9 MG/DL (8.5-10.1); CARBON DIOXIDE 24 MMOL/L (21-32); CHLORIDE 106 MMOL/L (98-107); CREATININE 0.9 MG/DL (0.55-1.30); POTASSIUM 3.6 MMOL/L (3.5-5.1); SODIUM 140 MMOL/L (136-145)
[2018-05-14 08:00] VITALS: BP 153/76
[2018-05-14] MEDS: clonazePAM 0.5mg tab ORAL SCH ×2 (09:03→18:19)
[2018-05-14] MEDS: Carvedilol 6.25mg Tab ORAL SCH ×2 (09:04→20:17)
[2018-05-14] MEDS: Heparin 5000 units/ml inj SUBQ SCH ×2 (09:06→20:18)
--- NOTE | 2018-05-14 11:23 | General Progress Note ---
Assessment/Plan Problem List: (1) UTI (urinary tract infection) ICD Codes: N39.0 - Urinary tract infection, site not specified SNOMED: 33190492 (2) Diabetes mellitus ICD Codes: E11.9 - Type 2 diabetes mellitus without complications SNOMED: 96348546 (3) HTN (hypertension) ICD Codes: I10 - Essential (primary) hypertension SNOMED: 37680794 (4) Anemia ICD Codes: D64.9 - Anemia, unspecified SNOMED: 075779216 (5) Episode of generalized weakness ICD Codes: R53.1 - Weakness SNOMED: 19189998 Status: stable, progressing Assessment/Plan pt diet abx bs control cbc bmp am dc plan if clear Subjective Constitutional: Reports: weakness Allergies: Coded Allergies: AMPICILLIN (Verified Allergy, Unknown, 12/02/15) CODEINE (Verified Allergy, Unknown, 12/02/15) NSAIDS (NON-STEROIDAL ANTI-INFLAMMA (Verified Allergy, Unknown, 12/02/15) PEANUT (Verified Allergy, Unknown, 12/02/15) PENICILLINS (Verified Allergy, Unknown, 12/02/15) All Systems: reviewed and negative except above Subjective sleepy calm Objective Last 24 Hour Vital Signs Date Time Temp Pulse Resp B/P (MAP) Pulse Ox O2 Delivery O2 Flow Rate FiO2 05/14/18 09:04 78 152/76 05/14/18 09:00 Room Air 05/14/18 04:00 98.0 77 18 145/91 (109) 100 05/14/18 00:00 98.1 76 18 158/70 (99) 97 05/13/18 21:22 78 148/68 05/13/18 20:25 Room Air 05/13/18 20:00 98.5 78 20 148/68 (94) 98 05/13/18 16:00 97.5 69 18 117/79 (92) 97 05/13/18 12:00 97.5 75 18 122/63 (82) 98 Intake and Output 05/13/18 05/14/18 18:59 06:59 Intake Total 743.334 ml 433.334 ml Output Total 800 ml 200 ml Balance -56.666 ml 233.334 ml Intake Oral 360 ml IV Total 383.334 ml 433.334 ml Output Urine Total 800 ml 200 ml # Voids 1 # Bowel Movements 2 Laboratory Tests 05/14/18 02:15: Urine Color Pale yellow, Urine Appearance Clear, Urine pH 7, Urine Specific [place] 1.005, Urine Protein Negative, Urine Glucose (UA) Negative, Urine Ketones Negative, Urine Blood Negative, Urine Nitrite Negative, Urine Bilirubin Negative, Urine Urobilinogen 1H, Urine Leukocyte Esterase Negative, Urine RBC 0- 2H, Urine WBC 0, Urine Squamous Epithelial Cells Few, Urine Bacteria None, Urine Random Creatinine [Pending], Urine Random Microalbumin [Pending], Urine Random Total Protein 6, Urine Random Sodium 97, Urine Creatinine 23.4L, Urine Microalbumin/Creatinine Ratio [Pending] 05/14/18 06:43: White Blood Count 4.0L, Red Blood Count 3.98L, Hemoglobin 10.8L, Hematocrit 32.5L, Mean Corpuscular Volume 82, Mean Corpuscular Hemoglobin 27.1, Mean Corpuscular Hemoglobin Concent 33.3, Red Cell Distribution Width 14.2, Platelet Count 235, Mean Platelet Volume 5.9L, Neutrophils (%) (Auto) 48.1, Lymphocytes ( %) (Auto) 32.4, Monocytes (%) (Auto) 9.9, Eosinophils (%) (Auto) 8.5H, Basophils (%) (Auto) 1.2, Sodium Level 140, Potassium Level 3.6, Chloride Level 106, Carbon Dioxide Level 24, Anion Gap 10, Blood Urea Nitrogen 15, Creatinine 0.9, Estimat Glomerular Filtration Rate > 60, Glucose Level 125H, Calcium Level 8.9 Height (Feet): 5 Height (Inches): 8.00 Weight (Pounds): 137 General Appearance: lethargic EENT: normal ENT inspection Neck: normal alignment Cardiovascular: normal peripheral pulses, normal rate, regular rhythm Respiratory/Chest: chest wall non-tender, lungs clear, normal breath sounds Abdomen: normal bowel sounds, non tender, soft Extremities: normal inspection Edema: no edema noted Arm (L), no edema noted Arm (R), no edema noted Leg (L), no edema noted Leg (R), no edema noted Pedal (L), no edema noted Pedal (R), no edema noted Generalized Neurologic: motor weakness Skin: normal pigmentation, warm/dry Wes Ramirez DO May 14, 2018 11:23
[2018-05-14 12:00] VITALS: BP 117/69
--- NOTE | 2018-05-14 12:58 | Pulmonology Progress Note ---
Assessment/Plan Problems: (1) UTI (urinary tract infection) (2) Episode of generalized weakness (3) Anemia (4) HTN (hypertension) (5) Hypothyroidism (6) CAD (coronary artery disease) (7) Diabetes mellitus Assessment/Plan no new complains improving cultures still pending sliding scale psych to follow pt/ot check T3, T4 and TSH. dvt prophylaxis. Subjective ROS Limited/Unobtainable: No Constitutional: Reports: no symptoms HEENT: Repors: no symptoms Respiratory: Reports: no symptoms Cardiovascular: Reports: no symptoms Gastrointestinal/Abdominal: Reports: no symptoms Allergies: Coded Allergies: AMPICILLIN (Verified Allergy, Unknown, 12/02/15) CODEINE (Verified Allergy, Unknown, 12/02/15) NSAIDS (NON-STEROIDAL ANTI-INFLAMMA (Verified Allergy, Unknown, 12/02/15) PEANUT (Verified Allergy, Unknown, 12/02/15) PENICILLINS (Verified Allergy, Unknown, 12/02/15) Objective Last 24 Hour Vital Signs Date Time Temp Pulse Resp B/P (MAP) Pulse Ox O2 Delivery O2 Flow Rate FiO2 05/14/18 09:04 78 152/76 05/14/18 09:00 Room Air 05/14/18 08:00 97.9 78 18 153/76 (101) 99 05/14/18 04:00 98.0 77 18 145/91 (109) 100 05/14/18 00:00 98.1 76 18 158/70 (99) 97 05/13/18 21:22 78 148/68 05/13/18 20:25 Room Air 05/13/18 20:00 98.5 78 20 148/68 (94) 98 05/13/18 16:00 97.5 69 18 117/79 (92) 97 Intake and Output 05/13/18 05/14/18 18:59 06:59 Intake Total 743.334 ml 433.334 ml Output Total 800 ml 200 ml Balance -56.666 ml 233.334 ml Intake Oral 360 ml IV Total 383.334 ml 433.334 ml Output Urine Total 800 ml 200 ml # Voids 1 # Bowel Movements 2 General Appearance: WD/WN HEENT: normocephalic, atraumatic Respiratory/Chest: chest wall non-tender, lungs clear Cardiovascular: normal peripheral pulses, regular rhythm Abdomen: soft, non tender, non distended, no scars Extremities: no cyanosis Skin: no rash, no ulcers 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 Complete 05/13/18 02:40 Indwelling Cath Urine Culture - Preliminary NO GROWTH Resulted 05/11/18 18:30 Rectum VRE Culture - Final NO VANCOMYCIN RESISTANT ENTEROCOCCUS ... Complete 05/11/18 18:30 Rectum - Final NO CARBAPENEM-RESISTANT ENTEROBACTERI... Complete Laboratory Tests 05/14/18 02:15: Urine Color Pale yellow, Urine Appearance Clear, Urine pH 7, Urine Specific [place] 1.005, Urine Protein Negative, Urine Glucose (UA) Negative, Urine Ketones Negative, Urine Blood Negative, Urine Nitrite Negative, Urine Bilirubin Negative, Urine Urobilinogen 1H, Urine Leukocyte Esterase Negative, Urine RBC 0- 2H, Urine WBC 0, Urine Squamous Epithelial Cells Few, Urine Bacteria None, Urine Random Creatinine [Pending], Urine Random Microalbumin [Pending], Urine Random Total Protein 6, Urine Random Sodium 97, Urine Creatinine 23.4L, Urine Microalbumin/Creatinine Ratio [Pending] 05/14/18 06:43: White Blood Count 4.0L, Red Blood Count 3.98L, Hemoglobin 10.8L, Hematocrit 32.5L, Mean Corpuscular Volume 82, Mean Corpuscular Hemoglobin 27.1, Mean Corpuscular Hemoglobin Concent 33.3, Red Cell Distribution Width 14.2, Platelet Count 235, Mean Platelet Volume 5.9L, Neutrophils (%) (Auto) 48.1, Lymphocytes ( %) (Auto) 32.4, Monocytes (%) (Auto) 9.9, Eosinophils (%) (Auto) 8.5H, Basophils (%) (Auto) 1.2, Sodium Level 140, Potassium Level 3.6, Chloride Level 106, Carbon Dioxide Level 24, Anion Gap 10, Blood Urea Nitrogen 15, Creatinine 0.9, Estimat Glomerular Filtration Rate > 60, Glucose Level 125H, Calcium Level 8.9 Current Medications Medications (Trade) Dose Ordered Sig/Stephanie Route PRN Reason Start Time Stop Time Status Last Admin Dose Admin Acetaminophen (Tylenol) 650 mg Q4H PRN ORAL fever 05/11/18 19:45 06/10/18 19:44 Albuterol/ Ipratropium (Albuterol/ Ipratropium) 3 ml Q4H PRN HHN Shortness of Breath 05/11/18 19:45 05/16/18 19:44 Aztreonam 1 gm/ Sodium Chloride 50 ml @ 100 mls/hr EVERY 8 HOURS IVPB 05/11/18 22:00 05/18/18 21:59 05/14/18 05:50 Carvedilol (Coreg) 6.25 mg Q12HR ORAL 05/11/18 21:54 06/10/18 21:53 05/14/18 09:04 Clonazepam (KlonoPIN) 0.5 mg BID ORAL 05/11/18 21:55 05/18/18 21:54 05/14/18 09:03 Dextrose (Dextrose 50%) 25 ml Q30M PRN IV Hypoglycemia 05/11/18 20:00 06/10/18 19:48 Dextrose (Dextrose 50%) 50 ml Q30M PRN IV hypoglycemia 05/11/18 20:00 06/10/18 19:59 Heparin Sodium (Porcine) (Heparin 5000 units/ml) 5,000 units EVERY 12 HOURS SUBQ 05/12/18 09:00 06/11/18 08:59 05/14/18 09:06 Insulin Aspart (NovoLOG) BEFORE MEALS AND HS SUBQ 05/12/18 06:30 06/11/18 06:29 05/13/18 21:24 Levothyroxine Sodium (Synthroid) 300 mcg Q24H ORAL 05/12/18 06:30 06/11/18 06:29 05/14/18 05:50 Mirtazapine (Remeron) 15 mg BEDTIME ORAL 05/11/18 21:54 06/10/18 21:53 05/13/18 21:22 Nitroglycerin (Ntg) 0.4 mg Q5M PRN SL Prn Chest Pain 05/11/18 19:45 06/10/18 19:44 Ondansetron HCl (Zofran) 4 mg Q6H PRN IVP Nausea & Vomiting 05/11/18 19:45 06/10/18 19:44 Polyethylene Glycol (Miralax) 17 gm DAILYPRN PRN ORAL Constipation 05/11/18 19:45 06/10/18 19:44 Temazepam (Restoril) 15 mg HSPRN PRN ORAL Insomnia 05/11/18 19:45 05/18/18 19:44 05/11/18 22:03 Vancomycin HCl (Vanco rx to dose) 1 ea DAILY PRN MISC PER PHARMACY 05/11/18 21:15 06/10/18 21:14 Vancomycin/Sodium Chloride 250 ml @ 166.667 mls/hr Q12H IVPB 05/11/18 23:00 05/16/18 22:59 05/13/18 22:09 Otto Scanlon MD May 14, 2018 12:58
--- NOTE | 2018-05-14 13:57 | NUR ---
*-* DISCHARGE PLANNING *-* PAT[facility] P:[phone] F:[phone]
--- NOTE | 2018-05-14 14:04 | NUR ---
NURSE NOTES: Pt does not have IV access unable ti give antibiotic. Charge nurse made aware, Attempts made by leader writer and charge nurse, not successful
[2018-05-14 16:00] VITALS: BP 120/66
--- NOTE | 2018-05-14 16:02 | NUR ---
NURSE NOTES: Dr Devlin called per request of Dr Ramirez pt has 2 pending antibiotics , unable to start a line. Awaiting Dr dang call.
--- NOTE | 2018-05-14 16:07 | NUR ---
NURSE NOTES: Dr Flores called back for consultation on possible non administration of IV antibiotics
[2018-05-14] MEDS: Vancomycin 750mg/NS 250ml IVPB SCH (16:16)
--- NOTE | 2018-05-14 16:18 | Consultation ---
History of Present Illness General Date patient seen: May 14, 2018 Chief Complaint: Generalized Weakness Present Illness HPI 67 y/o M wtih hx of HTN, COPD, hypothyroidism, DM, traumatic brain injury w/ resultant SDH, paranoid schizophrenia, anemia presented to ED on 05/11 with FTT , poor PO intake. ID is consulted for concern for UTI. Denied CP, SOB,n/v/d upon admission Allergies: Coded Allergies: AMPICILLIN (Verified Allergy, Unknown, 12/02/15) CODEINE (Verified Allergy, Unknown, 12/02/15) NSAIDS (NON-STEROIDAL ANTI-INFLAMMA (Verified Allergy, Unknown, 12/02/15) PEANUT (Verified Allergy, Unknown, 12/02/15) PENICILLINS (Verified Allergy, Unknown, 12/02/15) Medication History Scheduled Carvedilol (Coreg), 6.25 MG ORAL BID, (Reported) Clonazepam* (Klonopin*), 0.5 MG ORAL BID, (Reported) Docusate Sodium* (Docusate Sodium*), 100 MG ORAL DAILY, (Reported) Ferrous Sulfate* (Ferrous Sulfate*), 325 MG ORAL DAILY, (Reported) Levothyroxine Sodium* (Synthroid*), 300 MCG ORAL DAILY, (Reported) Metformin Hcl* (Metformin Hcl*), 1,000 MG ORAL BID, (Reported) Mirtazapine* (Mirtazapine*), 15 MG ORAL BEDTIME, (Reported) Multivitamin With Minerals (Multiple Vitamin), 1 EACH PO DAILY, (Reported) Pantoprazole* (Pantoprazole*), 40 MG ORAL DAILY, (Reported) Risperidone (Risperidone), 0.5 MG PO QHS, (Reported) Scheduled PRN Acetaminophen* (Acetaminophen 325MG Tablet*), 650 MG ORAL Q6H PRN for Mild Pain/ Temp > 100.5, (Reported) Bisacodyl (Bisacodyl), 10 MG RC for Constipation, (Reported) Magnesium Hydroxide* (Milk Of Magnesia*), 30 ML ORAL DAILY PRN for Constipation, (Reported) Miscellaneous Medications Insulin Detemir (Levemir Flexpen), (Reported) Nitroglycerin (Nitroglycerin), 0.4 MG SL, (Reported) Discontinued Medications Acetaminophen* (Tylenol Extra Strength*), 650 MG ORAL Q4HR PRN for Mild Pain/ Temp > 100.5, (Reported) Discontinued Reason: Prescription changed Albuterol Sulfate* (Albuterol Sulfate Hhn*), 3 ML INH Q4H PRN for Shortness of Breath, (Reported) Discontinued Reason: Therapy completed Ascorbic Acid* (Ascorbic Acid*), 500 MG ORAL DAILY, (Reported) Discontinued Reason: Therapy completed Aspirin* (Aspir 81*), 81 MG ORAL DAILY, (Reported) Discontinued Reason: Therapy completed Atorvastatin Calcium* (Atorvastatin Calcium*), 40 MG ORAL BEDTIME, (Reported) Discontinued Reason: Therapy completed Bisacodyl* (Dulcolax*), 10 MG RECTAL DAILY, (Reported) Discontinued Reason: Prescription changed Clindamycin Hcl (Cleocin Hcl), 300 MG PO Q6HR, (Reported) Discontinued Reason: Therapy completed Clonidine Hcl (Clonidine Hcl), 0.1 MG PO Q6HR, (Reported) Discontinued Reason: Therapy completed Heparin Sod (Porcine) (Heparin Sodium*), 5,000 UNITS SUBQ EVERY 12 HOURS, ( Reported) Discontinued Reason: Therapy completed Levothyroxine Sodium* (Levothyroxine Sodium*), 300 MCG ORAL DAILY, (Reported) Discontinued Reason: Prescription changed Lisinopril (Lisinopril*), 10 MG ORAL DAILY, (Reported) Discontinued Reason: Therapy completed Lorazepam* (Ativan*), 1 MG ORAL Q6HR, (Reported) Discontinued Reason: Therapy completed Metoprolol Tartrate* (Metoprolol Tartrate*), 25 MG ORAL BID, (Reported) Discontinued Reason: Therapy completed Mupirocin Calcium (Bactroban), 1 APPLIC TOPIC THREE TIMES A DAY, (Reported) Discontinued Reason: Therapy completed Na Phos,M-B/Na Phos,Di-Ba* (Fleet Enema*), 133 ML RECTAL DAILY, (Reported) Discontinued Reason: Therapy completed Nystatin* (Nystatin*), 5 ML ORAL FOUR TIMES A DAY, (Reported) Discontinued Reason: Therapy completed Temazepam* (Restoril*), 7.5 MG ORAL BEDTIME, (Reported) Discontinued Reason: Therapy completed Zolpidem Tartrate* (Ambien*), 5 MG ORAL BEDTIME PRN for Insomnia, (Reported) Discontinued Reason: Therapy completed Patient History Healthcare decision maker Resuscitation status Full Code Advanced Directive on File Yes Patient History Narrative Pmhx: as above Shx: There is no indication of alcohol use, illicit substance use, or smoking cigarettes. He lives at [facility]. Fhx: non contributory Physical Exam Physical Exam Narrative CARDIOVASCULAR: No murmur. LUNGS: Poor air exchange. ABDOMEN: Bowel sounds distant. EXTREMITIES: Show no cyanosis or edema. NEUROLOGIC: The patient moves all extremities, slightly weak. Last 24 Hour Vital Signs Date Time Temp Pulse Resp B/P (MAP) Pulse Ox O2 Delivery O2 Flow Rate FiO2 05/14/18 12:00 97.7 86 20 117/69 (85) 97 05/14/18 09:04 78 152/76 05/14/18 09:00 Room Air 05/14/18 08:00 97.9 78 18 153/76 (101) 99 05/14/18 04:00 98.0 77 18 145/91 (109) 100 05/14/18 00:00 98.1 76 18 158/70 (99) 97 05/13/18 21:22 78 148/68 05/13/18 20:25 Room Air 05/13/18 20:00 98.5 78 20 148/68 (94) 98 Intake and Output 05/13/18 05/14/18 19:00 07:00 Intake Total 743.334 ml 433.334 ml Output Total 800 ml 200 ml Balance -56.666 ml 233.334 ml Intake Oral 360 ml IV Total 383.334 ml 433.334 ml Output Urine Total 800 ml 200 ml # Voids 1 # Bowel Movements 2 Laboratory Tests Test 05/14/18 02:15 05/14/18 06:43 Urine Color Pale yellow Urine Appearance Clear Urine pH 7 (4.5-8.0) Urine Specific [place] 1.005 (1.005-1.035) Urine Protein Negative (NEGATIVE) Urine Glucose (UA) Negative (NEGATIVE) Urine Ketones Negative (NEGATIVE) Urine Blood Negative (NEGATIVE) Urine Nitrite Negative (NEGATIVE) Urine Bilirubin Negative (NEGATIVE) Urine Urobilinogen 1 MG/DL (0.0-1.0) H Urine Leukocyte Esterase Negative (NEGATIVE) Urine RBC 0-2 /HPF (0 - 0) H Urine WBC 0 /HPF (0 - 0) Urine Squamous Epithelial Cells Few /LPF (NONE/OCC) Urine Bacteria None /HPF (NONE) Urine Random Creatinine Pending Urine Random Microalbumin Pending Urine Random Total Protein 6 MG/DL (< 11.9) Urine Random Sodium 97 mmol/L (20-110) Urine Creatinine 23.4 MG/DL (30.0-125.0) L Urine Microalbumin/Creatinine Ratio Pending White Blood Count 4.0 K/UL (4.8-10.8) L Red Blood Count 3.98 M/UL (4.70-6.10) L Hemoglobin 10.8 G/DL (14.2-18.0) L Hematocrit 32.5 % (42.0-52.0) L Mean Corpuscular Volume 82 FL (80-99) Mean Corpuscular Hemoglobin 27.1 PG (27.0-31.0) Mean Corpuscular Hemoglobin Concent 33.3 G/DL (32.0-36.0) Red Cell Distribution Width 14.2 % (11.6-14.8) Platelet Count 235 K/UL (150-450) Mean Platelet Volume 5.9 FL (6.5-10.1) L Neutrophils (%) (Auto) 48.1 % (45.0-75.0) Lymphocytes (%) (Auto) 32.4 % (20.0-45.0) Monocytes (%) (Auto) 9.9 % (1.0-10.0) Eosinophils (%) (Auto) 8.5 % (0.0-3.0) H Basophils (%) (Auto) 1.2 % (0.0-2.0) Sodium Level 140 MMOL/L (136-145) Potassium Level 3.6 MMOL/L (3.5-5.1) Chloride Level 106 MMOL/L (98-107) Carbon Dioxide Level 24 MMOL/L (21-32) Anion Gap 10 mmol/L (5-15) Blood Urea Nitrogen 15 mg/dL (7-18) Creatinine 0.9 MG/DL (0.55-1.30) Estimat Glomerular Filtration Rate > 60 mL/min (>60) Glucose Level 125 MG/DL (74-106) H Calcium Level 8.9 MG/DL (8.5-10.1) Height (Feet): 5 Height (Inches): 8.00 Weight (Pounds): 137 Medications Current Medications Medications (Trade) Dose Ordered Sig/Stephanie Route PRN Reason Start Time Stop Time Status Last Admin Dose Admin Acetaminophen (Tylenol) 650 mg Q4H PRN ORAL fever 05/11/18 19:45 06/10/18 19:44 Albuterol/ Ipratropium (Albuterol/ Ipratropium) 3 ml Q4H PRN HHN Shortness of Breath 05/11/18 19:45 05/16/18 19:44 Aztreonam 1 gm/ Sodium Chloride 50 ml @ 100 mls/hr EVERY 8 HOURS IVPB 05/11/18 22:00 05/18/18 21:59 05/14/18 05:50 Carvedilol (Coreg) 6.25 mg Q12HR ORAL 05/11/18 21:54 06/10/18 21:53 05/14/18 09:04 Clonazepam (KlonoPIN) 0.5 mg BID ORAL 05/11/18 21:55 05/18/18 21:54 05/14/18 09:03 Dextrose (Dextrose 50%) 25 ml Q30M PRN IV Hypoglycemia 05/11/18 20:00 06/10/18 19:48 Dextrose (Dextrose 50%) 50 ml Q30M PRN IV hypoglycemia 05/11/18 20:00 06/10/18 19:59 Heparin Sodium (Porcine) (Heparin 5000 units/ml) 5,000 units EVERY 12 HOURS SUBQ 05/12/18 09:00 06/11/18 08:59 05/14/18 09:06 Insulin Aspart (NovoLOG) BEFORE MEALS AND HS SUBQ 05/12/18 06:30 06/11/18 06:29 05/14/18 13:21 Levothyroxine Sodium (Synthroid) 300 mcg Q24H ORAL 05/12/18 06:30 06/11/18 06:29 05/14/18 05:50 Mirtazapine (Remeron) 15 mg BEDTIME ORAL 05/11/18 21:54 06/10/18 21:53 05/13/18 21:22 Nitroglycerin (Ntg) 0.4 mg Q5M PRN SL Prn Chest Pain 05/11/18 19:45 06/10/18 19:44 Ondansetron HCl (Zofran) 4 mg Q6H PRN IVP Nausea & Vomiting 05/11/18 19:45 06/10/18 19:44 Polyethylene Glycol (Miralax) 17 gm DAILYPRN PRN ORAL Constipation 05/11/18 19:45 06/10/18 19:44 Temazepam (Restoril) 15 mg HSPRN PRN ORAL Insomnia 05/11/18 19:45 05/18/18 19:44 05/11/18 22:03 Vancomycin HCl (Vanco rx to dose) 1 ea DAILY PRN MISC PER PHARMACY 05/11/18 21:15 06/10/18 21:14 Vancomycin/Sodium Chloride 250 ml @ 166.667 mls/hr Q12H IVPB 05/11/18 23:00 05/16/18 22:59 05/13/18 22:09 Assessment/Plan Assessment/Plan Abx: IV Vancomycin 05/11- Zosyn x1 05/11 Aztreonam 05/11 Assessment: Lactic acidosis, SP- suspect 2ry to dehydration- doubt sepsis. No evidence of active infectious process Afebrile No leukocytosis -05/11 u.a wbc 2-4, nit neg, leuk +1; repaet u/a neg;ucx NTD -CXR" No acute process WEN, SP FTT HTN COPD hypothyroidism DM traumatic brain injury w/ resultant SDH paranoid schizophrenia anemia Plan: -D/c empiric IV Vancomycin #4 and Aztreonam #4 and monitor off abx -ok to d/c to SNF off abx -f/u cx -Monitor CBC/CMP, temperatures -aspiration precautions Thank you for this consultation. Will continue to follow along with you. Discussed with Yoly Uribe M.D. May 14, 2018 16:18
--- NOTE | 2018-05-14 19:05 | NUR ---
NURSE NOTES: Dr Devlin gave orders to discontinue antibiotics. Discharge is pending.All anticipated needs required to be met. Pt does not speak well makes sounds and expresses self with hand gestures . current plan of care will be followed
--- NOTE | 2018-05-14 19:15 | NUR ---
HAND-OFF: Report given to Veronica PALOMO.
--- NOTE | 2018-05-14 19:30 | NUR ---
NURSE NOTES: Received patient in no apparent distress. A&OX2. IV site patent and intact. Bed in lowest position. Call light within reach. Will continue to monitor.
--- NOTE | 2018-05-14 19:50 | NUR ---
HAND-OFF: Report given to Veronica PALOMO.
[2018-05-14 19:51] VITALS: BP 142/76
--- NOTE | 2018-05-14 23:16 | Nephrology Progress Note ---
Assessment/Plan Assessment 1. Urinary tract infection and proteinuria, 2. Hypomagnesemia. 3. Lactic acidosis. 4. Anemia. 5. Hypertension. 6. Diabetes. Plan continue current iv monitoring renal function avoid NSAID replace electrolyte as need it Subjective Subjective no acute events Objective Objective Last 24 Hour Vital Signs Date Time Temp Pulse Resp B/P (MAP) Pulse Ox O2 Delivery O2 Flow Rate FiO2 05/14/18 20:48 Room Air 05/14/18 20:17 69 142/76 05/14/18 19:51 97.8 69 20 142/76 (98) 100 05/14/18 16:00 98.3 102 20 120/66 (84) 97 05/14/18 12:00 97.7 86 20 117/69 (85) 97 05/14/18 09:04 78 152/76 05/14/18 09:00 Room Air 05/14/18 08:00 97.9 78 18 153/76 (101) 99 05/14/18 04:00 98.0 77 18 145/91 (109) 100 05/14/18 00:00 98.1 76 18 158/70 (99) 97 Intake and Output 05/13/18 05/14/18 19:00 07:00 Intake Total 743.334 ml 433.334 ml Output Total 800 ml 200 ml Balance -56.666 ml 233.334 ml Intake Oral 360 ml IV Total 383.334 ml 433.334 ml Output Urine Total 800 ml 200 ml # Voids 1 # Bowel Movements 2 Laboratory Tests 05/14/18 02:15: Urine Color Pale yellow, Urine Appearance Clear, Urine pH 7, Urine Specific [place] 1.005, Urine Protein Negative, Urine Glucose (UA) Negative, Urine Ketones Negative, Urine Blood Negative, Urine Nitrite Negative, Urine Bilirubin Negative, Urine Urobilinogen 1H, Urine Leukocyte Esterase Negative, Urine RBC 0- 2H, Urine WBC 0, Urine Squamous Epithelial Cells Few, Urine Bacteria None, Urine Random Creatinine [Pending], Urine Random Microalbumin [Pending], Urine Random Total Protein 6, Urine Random Sodium 97, Urine Creatinine 23.4L, Urine Microalbumin/Creatinine Ratio [Pending] 05/14/18 06:43: White Blood Count 4.0L, Red Blood Count 3.98L, Hemoglobin 10.8L, Hematocrit 32.5L, Mean Corpuscular Volume 82, Mean Corpuscular Hemoglobin 27.1, Mean Corpuscular Hemoglobin Concent 33.3, Red Cell Distribution Width 14.2, Platelet Count 235, Mean Platelet Volume 5.9L, Neutrophils (%) (Auto) 48.1, Lymphocytes ( %) (Auto) 32.4, Monocytes (%) (Auto) 9.9, Eosinophils (%) (Auto) 8.5H, Basophils (%) (Auto) 1.2, Sodium Level 140, Potassium Level 3.6, Chloride Level 106, Carbon Dioxide Level 24, Anion Gap 10, Blood Urea Nitrogen 15, Creatinine 0.9, Estimat Glomerular Filtration Rate > 60, Glucose Level 125H, Calcium Level 8.9 Height (Feet): 5 Height (Inches): 8.00 Weight (Pounds): 137 Objective HEAD AND NECK: No JVP. No LAD. No thyromegaly. Extraocular movement intact. Pupils are reactive to light and accommodation. LUNGS: Clear to auscultation. CARDIAC: Regular rate and rhythm. S1 and S2. No murmur. No rub. ABDOMEN: Soft, nontender, and nondistended. EXTREMITIES: No edema. No clubbing. No cyanosis. Ailyn Caputo MD May 14, 2018 23:16
[2018-05-15] VITALS (7 sets, daily range): BP systolic 120–155; BP diastolic 55–90
--- NOTE | 2018-05-15 03:00 | Progress Note ---
DATE: 05/14/2018 NOTE: POOR AUDIO. PSYCHOTHERAPY CONSULTATION PROGRESS NOTE CONSULTING PHYSICIAN: Raven Sharp PsyD. TREATING ATTENDING PHYSICIAN: Wes Ramirez D.O. HISTORY OF PRESENT ILLNESS: The patient is a 67-year-old male patient. The patient is from [facility]. The patient is very helpless, hopeless, and dysphoric. He has been mostly agitated, with minimal participation in treatment. The patient feels tired and has been hopeless, however, denies suicidal or homicidal thoughts of ideation. He is mostly lethargic and mostly keeps himself during the day. There is no indication of auditory or visual hallucinations for this patient at this time. Clinician assessed the patient. The patient is alert and oriented to person and place. Mood dysphoric. Affect blunted. Thought process, disorganized. He has poor attention and concentration. Poor insight, judgment, and impulse control. PLAN: Provided the patient with reality orientation, supportive psychotherapy, cognitive function confused and disoriented. Oriented to person, place, time, and situation. Provided the patient with cognitive behavioral therapy addressing the patient's feelings of helplessness and hopeless, encouraging the patient to participate in treatment milieu . This clinician has reviewed the patient's chart. Discussed the treatment with treatment team. . Raven Sharp PsyD. DR: Devaughn JOB#: [id number] CC:
[2018-05-15] MEDS: NovoLOG Insulin Flexpen SUBQ SCH ×4 (06:13→21:21)
[2018-05-15 06:29] LABS: BASOPHILS % (AUTO) 0.9 % (0.0-2.0); EOSINOPHILS % (AUTO) 4.2 % (0.0-3.0); HEMATOCRIT 30.8 % (42.0-52.0); HEMOGLOBIN 10.2 G/DL (14.2-18.0); LYMPHOCYTES % (AUTO) 24.2 % (20.0-45.0); MEAN CORPUSCULAR VOLUME 81 FL (80-99); MONOCYTES % (AUTO) 10.1 % (1.0-10.0); NEUTROPHILS % (AUTO) 60.7 % (45.0-75.0); PLATELET COUNT 212 K/UL (150-450); RED BLOOD COUNT 3.81 M/UL (4.70-6.10); WHITE BLOOD COUNT 4.7 K/UL (4.8-10.8)
[2018-05-15 06:39] LABS: ANION GAP 11 mmol/L (5-15); BLOOD UREA NITROGEN 12 mg/dL (7-18); CALCIUM 9.3 MG/DL (8.5-10.1); CARBON DIOXIDE 24 MMOL/L (21-32); CHLORIDE 106 MMOL/L (98-107); CREATININE 0.9 MG/DL (0.55-1.30); POTASSIUM 3.7 MMOL/L (3.5-5.1); SODIUM 141 MMOL/L (136-145)
--- NOTE | 2018-05-15 07:20 | NUR ---
NURSE NOTES: Received report from DEWEY Martin. Pt in bed, awake, resting, no apparent distress noted, no complaints of pain, pt eating breakfast, bed in lowest position, call light within reach.
[2018-05-15] MEDS: Carvedilol 6.25mg Tab ORAL SCH ×2 (08:41→21:16)
[2018-05-15] MEDS: clonazePAM 0.5mg tab ORAL SCH ×2 (08:41→17:18)
[2018-05-15] MEDS: Heparin 5000 units/ml inj SUBQ SCH ×2 (08:42→21:22)
--- NOTE | 2018-05-15 09:01 | General Progress Note ---
Assessment/Plan Problem List: (1) UTI (urinary tract infection) ICD Codes: N39.0 - Urinary tract infection, site not specified SNOMED: 09245904 (2) Diabetes mellitus ICD Codes: E11.9 - Type 2 diabetes mellitus without complications SNOMED: 07702809 (3) HTN (hypertension) ICD Codes: I10 - Essential (primary) hypertension SNOMED: 70323030 (4) Anemia ICD Codes: D64.9 - Anemia, unspecified SNOMED: 995269249 (5) Episode of generalized weakness ICD Codes: R53.1 - Weakness SNOMED: 08329876 Status: stable, progressing Assessment/Plan pt diet abx bs control cbc bmp am dc plan if clear Subjective Allergies: Coded Allergies: AMPICILLIN (Verified Allergy, Unknown, 12/02/15) CODEINE (Verified Allergy, Unknown, 12/02/15) NSAIDS (NON-STEROIDAL ANTI-INFLAMMA (Verified Allergy, Unknown, 12/02/15) PEANUT (Verified Allergy, Unknown, 12/02/15) PENICILLINS (Verified Allergy, Unknown, 12/02/15) All Systems: reviewed and negative except above Subjective sleepy calm Objective Last 24 Hour Vital Signs Date Time Temp Pulse Resp B/P (MAP) Pulse Ox O2 Delivery O2 Flow Rate FiO2 05/15/18 08:41 91 142/77 05/15/18 08:00 97.5 91 18 142/77 (98) 97 05/15/18 04:00 98.0 70 20 150/90 (110) 100 05/15/18 00:00 97.9 65 20 151/70 (97) 98 05/14/18 20:48 Room Air 05/14/18 20:17 69 142/76 05/14/18 19:51 97.8 69 20 142/76 (98) 100 05/14/18 16:00 98.3 102 20 120/66 (84) 97 05/14/18 12:00 97.7 86 20 117/69 (85) 97 05/14/18 09:04 78 152/76 Intake and Output 05/14/18 05/15/18 19:00 07:00 Intake Total 960 ml Output Total 300 ml Balance 960 ml -300 ml Intake Oral 960 ml Output Urine Total 300 ml # Voids 6 2 Laboratory Tests 05/15/18 06:00: White Blood Count 4.7L, Red Blood Count 3.81L, Hemoglobin 10.2L, Hematocrit 30.8L, Mean Corpuscular Volume 81, Mean Corpuscular Hemoglobin 26.8L, Mean Corpuscular Hemoglobin Concent 33.1, Red Cell Distribution Width 14.0, Platelet Count 212, Mean Platelet Volume 6.1L, Neutrophils (%) (Auto) 60.7, Lymphocytes ( %) (Auto) 24.2, Monocytes (%) (Auto) 10.1H, Eosinophils (%) (Auto) 4.2H, Basophils (%) (Auto) 0.9, Sodium Level 141, Potassium Level 3.7, Chloride Level 106, Carbon Dioxide Level 24, Anion Gap 11, Blood Urea Nitrogen 12, Creatinine 0.9, Estimat Glomerular Filtration Rate > 60, Glucose Level 122H, Calcium Level 9.3 Height (Feet): 5 Height (Inches): 8.00 Weight (Pounds): 137 General Appearance: lethargic EENT: normal ENT inspection Neck: normal alignment Cardiovascular: normal peripheral pulses, normal rate, regular rhythm Respiratory/Chest: chest wall non-tender, lungs clear, normal breath sounds Abdomen: normal bowel sounds, non tender, soft Extremities: normal inspection Edema: no edema noted Arm (L), no edema noted Arm (R), no edema noted Leg (L), no edema noted Leg (R), no edema noted Pedal (L), no edema noted Pedal (R), no edema noted Generalized Neurologic: motor weakness Skin: normal pigmentation, warm/dry Wes Ramirez DO May 15, 2018 09:01
--- NOTE | 2018-05-15 09:13 | Infectious Diseases Prog Note ---
Assessment/Plan Assessment/Plan Abx: IV Vancomycin 05/11- Zosyn x1 05/11 Aztreonam 05/11 Assessment: Lactic acidosis, SP- suspect 2ry to dehydration- doubt sepsis. No evidence of active infectious process Afebrile No leukocytosis -05/11 u.a wbc 2-4, nit neg, leuk +1; repaet u/a neg;ucx NTD -CXR" No acute process WEN, SP FTT HTN COPD hypothyroidism DM traumatic brain injury w/ resultant SDH paranoid schizophrenia anemia Plan: - Monitor off abx - 05/14/18 SP empiric IV Vancomycin #4 and Aztreonam #4 - Ok to d/c to SNF off abx -Monitor CBC/CMP, temperatures -aspiration precautions Will continue to follow along with you. Subjective Allergies: Coded Allergies: AMPICILLIN (Verified Allergy, Unknown, 12/02/15) CODEINE (Verified Allergy, Unknown, 12/02/15) NSAIDS (NON-STEROIDAL ANTI-INFLAMMA (Verified Allergy, Unknown, 12/02/15) PEANUT (Verified Allergy, Unknown, 12/02/15) PENICILLINS (Verified Allergy, Unknown, 12/02/15) Subjective Afebrile No leukocytosis Objective Vital Signs Last 24 Hour Vital Signs Date Time Temp Pulse Resp B/P (MAP) Pulse Ox O2 Delivery O2 Flow Rate FiO2 05/15/18 08:41 91 142/77 05/15/18 08:00 97.5 91 18 142/77 (98) 97 05/15/18 04:00 98.0 70 20 150/90 (110) 100 05/15/18 00:00 97.9 65 20 151/70 (97) 98 05/14/18 20:48 Room Air 05/14/18 20:17 69 142/76 05/14/18 19:51 97.8 69 20 142/76 (98) 100 05/14/18 16:00 98.3 102 20 120/66 (84) 97 05/14/18 12:00 97.7 86 20 117/69 (85) 97 Height (Feet): 5 Height (Inches): 8.00 Weight (Pounds): 137 Objective GEN: NAD CARDIOVASCULAR: No murmur. LUNGS: Poor air exchange. ABDOMEN: Bowel sounds distant. NEUROLOGIC: The patient moves all extremities, slightly weak. Microbiology Date/Time Source Procedure Growth Status 05/13/18 02:40 Indwelling Cath Urine Culture - Final NO GROWTH AFTER 48 HOURS Complete Laboratory Tests Test 05/15/18 06:00 White Blood Count 4.7 K/UL (4.8-10.8) L Red Blood Count 3.81 M/UL (4.70-6.10) L Hemoglobin 10.2 G/DL (14.2-18.0) L Hematocrit 30.8 % (42.0-52.0) L Mean Corpuscular Volume 81 FL (80-99) Mean Corpuscular Hemoglobin 26.8 PG (27.0-31.0) L Mean Corpuscular Hemoglobin Concent 33.1 G/DL (32.0-36.0) Red Cell Distribution Width 14.0 % (11.6-14.8) Platelet Count 212 K/UL (150-450) Mean Platelet Volume 6.1 FL (6.5-10.1) L Neutrophils (%) (Auto) 60.7 % (45.0-75.0) Lymphocytes (%) (Auto) 24.2 % (20.0-45.0) Monocytes (%) (Auto) 10.1 % (1.0-10.0) H Eosinophils (%) (Auto) 4.2 % (0.0-3.0) H Basophils (%) (Auto) 0.9 % (0.0-2.0) Sodium Level 141 MMOL/L (136-145) Potassium Level 3.7 MMOL/L (3.5-5.1) Chloride Level 106 MMOL/L (98-107) Carbon Dioxide Level 24 MMOL/L (21-32) Anion Gap 11 mmol/L (5-15) Blood Urea Nitrogen 12 mg/dL (7-18) Creatinine 0.9 MG/DL (0.55-1.30) Estimat Glomerular Filtration Rate > 60 mL/min (>60) Glucose Level 122 MG/DL (74-106) H Calcium Level 9.3 MG/DL (8.5-10.1) Current Medications Medications (Trade) Dose Ordered Sig/Stephanie Route PRN Reason Start Time Stop Time Status Last Admin Dose Admin Acetaminophen (Tylenol) 650 mg Q4H PRN ORAL fever 05/11/18 19:45 06/10/18 19:44 Albuterol/ Ipratropium (Albuterol/ Ipratropium) 3 ml Q4H PRN HHN Shortness of Breath 05/11/18 19:45 05/16/18 19:44 Carvedilol (Coreg) 6.25 mg Q12HR ORAL 05/11/18 21:54 06/10/18 21:53 05/15/18 08:41 Clonazepam (KlonoPIN) 0.5 mg BID ORAL 05/11/18 21:55 05/18/18 21:54 05/15/18 08:41 Dextrose (Dextrose 50%) 25 ml Q30M PRN IV Hypoglycemia 05/11/18 20:00 06/10/18 19:48 Dextrose (Dextrose 50%) 50 ml Q30M PRN IV hypoglycemia 05/11/18 20:00 06/10/18 19:59 Heparin Sodium (Porcine) (Heparin 5000 units/ml) 5,000 units EVERY 12 HOURS SUBQ 05/12/18 09:00 06/11/18 08:59 05/15/18 08:42 Insulin Aspart (NovoLOG) BEFORE MEALS AND HS SUBQ 05/12/18 06:30 06/11/18 06:29 05/14/18 20:19 Levothyroxine Sodium (Synthroid) 300 mcg Q24H ORAL 05/12/18 06:30 06/11/18 06:29 05/15/18 06:14 Mirtazapine (Remeron) 15 mg BEDTIME ORAL 05/11/18 21:54 06/10/18 21:53 05/14/18 20:17 Nitroglycerin (Ntg) 0.4 mg Q5M PRN SL Prn Chest Pain 05/11/18 19:45 06/10/18 19:44 Ondansetron HCl (Zofran) 4 mg Q6H PRN IVP Nausea & Vomiting 05/11/18 19:45 06/10/18 19:44 Polyethylene Glycol (Miralax) 17 gm DAILYPRN PRN ORAL Constipation 05/11/18 19:45 06/10/18 19:44 Temazepam (Restoril) 15 mg HSPRN PRN ORAL Insomnia 05/11/18 19:45 05/18/18 19:44 05/11/18 22:03 Asad Ovalles MD May 15, 2018 09:13
--- NOTE | 2018-05-15 09:55 | Pulmonology Progress Note ---
Assessment/Plan Problems: (1) UTI (urinary tract infection) (2) Episode of generalized weakness (3) Anemia (4) HTN (hypertension) (5) Hypothyroidism (6) CAD (coronary artery disease) (7) Diabetes mellitus Assessment/Plan no new complains improving cultures still pending sliding scale psych to follow pt/ot check T3, T4 and TSH. dvt prophylaxis. Subjective ROS Limited/Unobtainable: No Constitutional: Reports: no symptoms HEENT: Repors: no symptoms Allergies: Coded Allergies: AMPICILLIN (Verified Allergy, Unknown, 12/02/15) CODEINE (Verified Allergy, Unknown, 12/02/15) NSAIDS (NON-STEROIDAL ANTI-INFLAMMA (Verified Allergy, Unknown, 12/02/15) PEANUT (Verified Allergy, Unknown, 12/02/15) PENICILLINS (Verified Allergy, Unknown, 12/02/15) Objective Last 24 Hour Vital Signs Date Time Temp Pulse Resp B/P (MAP) Pulse Ox O2 Delivery O2 Flow Rate FiO2 05/15/18 08:41 91 142/77 05/15/18 08:00 97.5 91 18 142/77 (98) 97 05/15/18 04:00 98.0 70 20 150/90 (110) 100 05/15/18 00:00 97.9 65 20 151/70 (97) 98 05/14/18 20:48 Room Air 05/14/18 20:17 69 142/76 05/14/18 19:51 97.8 69 20 142/76 (98) 100 05/14/18 16:00 98.3 102 20 120/66 (84) 97 05/14/18 12:00 97.7 86 20 117/69 (85) 97 Intake and Output 05/14/18 05/15/18 18:59 06:59 Intake Total 960 ml Output Total 300 ml Balance 960 ml -300 ml Intake Oral 960 ml Output Urine Total 300 ml # Voids 6 2 Objective General Appearance: WD/WN Lines, tubes and drains: peripheral HEENT: normocephalic, atraumatic Neck: non-tender, supple Respiratory/Chest: chest wall non-tender, lungs clear Breasts: no masses Cardiovascular/Chest: normal peripheral pulses Abdomen: normal bowel sounds, non tender Extremities: normal range of motion Skin Exam: normal pigmentation Microbiology Date/Time Source Procedure Growth Status 05/13/18 02:40 Indwelling Cath Urine Culture - Final NO GROWTH AFTER 48 HOURS Complete Laboratory Tests 05/15/18 06:00: White Blood Count 4.7L, Red Blood Count 3.81L, Hemoglobin 10.2L, Hematocrit 30.8L, Mean Corpuscular Volume 81, Mean Corpuscular Hemoglobin 26.8L, Mean Corpuscular Hemoglobin Concent 33.1, Red Cell Distribution Width 14.0, Platelet Count 212, Mean Platelet Volume 6.1L, Neutrophils (%) (Auto) 60.7, Lymphocytes ( %) (Auto) 24.2, Monocytes (%) (Auto) 10.1H, Eosinophils (%) (Auto) 4.2H, Basophils (%) (Auto) 0.9, Sodium Level 141, Potassium Level 3.7, Chloride Level 106, Carbon Dioxide Level 24, Anion Gap 11, Blood Urea Nitrogen 12, Creatinine 0.9, Estimat Glomerular Filtration Rate > 60, Glucose Level 122H, Calcium Level 9.3 Current Medications Medications (Trade) Dose Ordered Sig/Stephanie Route PRN Reason Start Time Stop Time Status Last Admin Dose Admin Acetaminophen (Tylenol) 650 mg Q4H PRN ORAL fever 05/11/18 19:45 06/10/18 19:44 Albuterol/ Ipratropium (Albuterol/ Ipratropium) 3 ml Q4H PRN HHN Shortness of Breath 05/11/18 19:45 05/16/18 19:44 Carvedilol (Coreg) 6.25 mg Q12HR ORAL 05/11/18 21:54 06/10/18 21:53 05/15/18 08:41 Clonazepam (KlonoPIN) 0.5 mg BID ORAL 05/11/18 21:55 05/18/18 21:54 05/15/18 08:41 Dextrose (Dextrose 50%) 25 ml Q30M PRN IV Hypoglycemia 05/11/18 20:00 06/10/18 19:48 Dextrose (Dextrose 50%) 50 ml Q30M PRN IV hypoglycemia 05/11/18 20:00 06/10/18 19:59 Heparin Sodium (Porcine) (Heparin 5000 units/ml) 5,000 units EVERY 12 HOURS SUBQ 05/12/18 09:00 06/11/18 08:59 05/15/18 08:42 Insulin Aspart (NovoLOG) BEFORE MEALS AND HS SUBQ 05/12/18 06:30 06/11/18 06:29 05/14/18 20:19 Levothyroxine Sodium (Synthroid) 300 mcg Q24H ORAL 05/12/18 06:30 06/11/18 06:29 05/15/18 06:14 Mirtazapine (Remeron) 15 mg BEDTIME ORAL 05/11/18 21:54 06/10/18 21:53 05/14/18 20:17 Nitroglycerin (Ntg) 0.4 mg Q5M PRN SL Prn Chest Pain 05/11/18 19:45 06/10/18 19:44 Ondansetron HCl (Zofran) 4 mg Q6H PRN IVP Nausea & Vomiting 05/11/18 19:45 06/10/18 19:44 Polyethylene Glycol (Miralax) 17 gm DAILYPRN PRN ORAL Constipation 05/11/18 19:45 06/10/18 19:44 Temazepam (Restoril) 15 mg HSPRN PRN ORAL Insomnia 05/11/18 19:45 05/18/18 19:44 05/11/18 22:03 Otto Scanlon MD May 15, 2018 09:55
[2018-05-15] MEDS ORDERED: LORazepam 1mg tab ORAL PRN (16:15)
--- NOTE | 2018-05-15 19:38 | NUR ---
HAND-OFF: Report given to DEWEY Rob. Pt stable.
--- NOTE | 2018-05-15 19:47 | NUR ---
NURSE NOTES: Patient in bed, awake, alert x 2. Respiration is even and unlabored. No complaint of pain or discomfort noted. Abdomen is soft and no distended. Skin is warm and dry to touch. Iv site noted. Bed in low and locked position. Call light is at bedside. Will continue plan of care.
[2018-05-16 04:00] VITALS: BP 145/77
--- NOTE | 2018-05-16 04:15 | Consultation ---
DATE OF CONSULTATION: 05/15/2018 CONSULTING PHYSICIAN: Miguelina Cassidy M.D. HISTORY OF PRESENT ILLNESS: This is a 67-year-old male patient. He does have failure to thrive. He is confused. He is disorganized. His mood is labile. poor appetite, depression, and anxiety. That is why his attending has requested daily psychiatric consultation to stabilize his mood. MEDICAL PROBLEMS: As far as the patient's medical problems, the patient has a diagnosis of failure to thrive and he has altered mental status, respiratory insufficiency. Please see Internal Medicine note for further details. ALLERGIES: He has no known drug allergies at this time. SUBSTANCE ABUSE HISTORY: Denies. PAIN ASSESSMENT: 0/10. DEVELOPMENTAL PROBLEMS: Denies. SOCIAL HISTORY: The patient lives in [facility]. He is financially supported by [employer] and Medicare. STRENGTHS: Moderately better. He is healthy. WEAKNESSES: He is impulsive and minimal support system. MENTAL STATUS EXAMINATION: This is a 67-year-old male. Appearance is disheveled. Attitude, irritable and agitated. Affect, guarded and restricted. Intellect poor. Mood depressed and anxious. Motor activity, psychomotor agitation. Attention span is poor. Oriented to person and place. Speech is low volume and slow. Thought process, disorganized and logical. Judgment is poor. DIAGNOSIS: Major depression with psychotic features, rule out paranoid schizophrenia. PLAN: I am going to continue treatment with medications to stabilize his mood. Provided 20 minutes of supportive treatment, cognitive behavioral therapy to help identify automatic negative thoughts and help him convert those negative thoughts to more positive thoughts to reduce depression. Seen and assessed in his room. Twenty minutes of cognitive behavioral therapy provided. Miguelina Cassidy M.D. DR: GRETA JOB#: [id number] CC:
--- NOTE | 2018-05-16 05:15 | Progress Note ---
DATE: 05/14/2018 NOTE: POOR AUDIO PSYCHOTHERAPY CONSULTATION PROGRESS NOTE TREATING ATTENDING PHYSICIAN: Wes Ramirez D.O. SUBJECTIVE: This is a 67-year-old male patient. The patient has history of schizophrenia. The patient is tired, fatigued, lethargic, and disorganized. He has been cooperative with his treatment. He remains very helpless and hopeless at this time. However, denies suicidal or homicidal thoughts of ideation. Denies any auditory or visual hallucinations. The patient is alert and oriented to person and place. Mood dysphoric. Affect blunted. Thought process, disorganized. He has poor attention and concentration. Poor insight, judgment, and impulse control. PLAN: This clinician assessed this patient. Provided the patient with reality orientation, supportive psychotherapy, cognitive function. The patient is confused and disoriented. The patient is oriented to person, place, time, and situation. and able to communicate and articulate his thoughts. This clinician . Continued to encourage the patient to participate in treatment milieu and continue . Continue with medication regimen and provided him with coping skills . Raven Sharp PsyD. : VU JOB#: [id number] CC:
[2018-05-16] MEDS: NovoLOG Insulin Flexpen SUBQ SCH ×4 (06:01→21:00)
--- NOTE | 2018-05-16 07:06 | NUR ---
HAND-OFF: Report given to DEWEY Colunga.
[2018-05-16 07:20] LABS: BASOPHILS % (AUTO) 1.1 % (0.0-2.0); EOSINOPHILS % (AUTO) 8.1 % (0.0-3.0); HEMATOCRIT 31.8 % (42.0-52.0); HEMOGLOBIN 10.3 G/DL (14.2-18.0); LYMPHOCYTES % (AUTO) 29.9 % (20.0-45.0); MEAN CORPUSCULAR VOLUME 83 FL (80-99); MONOCYTES % (AUTO) 10.2 % (1.0-10.0); NEUTROPHILS % (AUTO) 50.6 % (45.0-75.0); PLATELET COUNT 225 K/UL (150-450); RED BLOOD COUNT 3.86 M/UL (4.70-6.10); RED CELL DISTRIBUTION WIDTH 14.4 % (11.6-14.8); WHITE BLOOD COUNT 4.3 K/UL (4.8-10.8)
[2018-05-16 07:33] LABS: ANION GAP 11 mmol/L (5-15); BLOOD UREA NITROGEN 14 mg/dL (7-18); CALCIUM 9.2 MG/DL (8.5-10.1); CARBON DIOXIDE 27 MMOL/L (21-32); CHLORIDE 104 MMOL/L (98-107); CREATININE 1.2 MG/DL (0.55-1.30); POTASSIUM 3.5 MMOL/L (3.5-5.1); SODIUM 141 MMOL/L (136-145)
[2018-05-16 08:00] VITALS: BP 136/58
--- NOTE | 2018-05-16 08:02 | NUR ---
NURSE NOTES: received patient in bed, asleep, no distress noted. IV access at RFA. Call light within easy reach, siderails up x3, bed locked at the lowest position possible and on alarm. Will continue to monitor patient and follow up with the plan of care.
--- NOTE | 2018-05-16 08:37 | General Progress Note ---
Assessment/Plan Problem List: (1) UTI (urinary tract infection) ICD Codes: N39.0 - Urinary tract infection, site not specified SNOMED: 30870561 (2) Diabetes mellitus ICD Codes: E11.9 - Type 2 diabetes mellitus without complications SNOMED: 21649849 (3) HTN (hypertension) ICD Codes: I10 - Essential (primary) hypertension SNOMED: 65454496 (4) Anemia ICD Codes: D64.9 - Anemia, unspecified SNOMED: 252415162 (5) Episode of generalized weakness ICD Codes: R53.1 - Weakness SNOMED: 23984832 Status: stable, progressing Assessment/Plan pt diet abx bs control cbc bmp am dc plan if clear Subjective Constitutional: Reports: weakness Allergies: Coded Allergies: AMPICILLIN (Verified Allergy, Unknown, 12/02/15) CODEINE (Verified Allergy, Unknown, 12/02/15) NSAIDS (NON-STEROIDAL ANTI-INFLAMMA (Verified Allergy, Unknown, 12/02/15) PEANUT (Verified Allergy, Unknown, 12/02/15) PENICILLINS (Verified Allergy, Unknown, 12/02/15) All Systems: reviewed and negative except above Subjective sleepy calm Objective Last 24 Hour Vital Signs Date Time Temp Pulse Resp B/P (MAP) Pulse Ox O2 Delivery O2 Flow Rate FiO2 05/16/18 04:00 98.2 71 20 145/77 (99) 99 05/15/18 23:58 98.0 75 20 155/84 (107) 100 05/15/18 21:16 86 139/55 05/15/18 21:00 Room Air 05/15/18 19:43 99.0 86 20 139/55 (83) 98 05/15/18 16:00 98.4 75 18 120/61 (80) 99 05/15/18 11:48 97.3 72 18 145/71 (95) 99 05/15/18 09:00 Room Air 05/15/18 08:41 91 142/77 Intake and Output 05/15/18 05/16/18 19:00 07:00 Intake Total 720 ml Balance 720 ml Intake Oral 720 ml # Voids 4 3 Laboratory Tests 05/16/18 06:07: White Blood Count 4.3L, Red Blood Count 3.86L, Hemoglobin 10.3L, Hematocrit 31.8L, Mean Corpuscular Volume 83, Mean Corpuscular Hemoglobin 26.6L, Mean Corpuscular Hemoglobin Concent 32.2, Red Cell Distribution Width 14.4, Platelet Count 225, Mean Platelet Volume 5.9L, Neutrophils (%) (Auto) 50.6, Lymphocytes ( %) (Auto) 29.9, Monocytes (%) (Auto) 10.2H, Eosinophils (%) (Auto) 8.1H, Basophils (%) (Auto) 1.1, Sodium Level 141, Potassium Level 3.5, Chloride Level 104, Carbon Dioxide Level 27, Anion Gap 11, Blood Urea Nitrogen 14, Creatinine 1.2, Estimat Glomerular Filtration Rate > 60, Glucose Level 131H, Calcium Level 9.2 Height (Feet): 5 Height (Inches): 8.00 Weight (Pounds): 137 General Appearance: lethargic EENT: normal ENT inspection Neck: normal alignment Cardiovascular: normal peripheral pulses, normal rate, regular rhythm Respiratory/Chest: chest wall non-tender, lungs clear, normal breath sounds Abdomen: normal bowel sounds, non tender, soft Extremities: normal inspection Edema: no edema noted Arm (L), no edema noted Arm (R), no edema noted Leg (L), no edema noted Leg (R), no edema noted Pedal (L), no edema noted Pedal (R), no edema noted Generalized Neurologic: motor weakness Skin: normal pigmentation, warm/dry Wes Ramirez DO May 16, 2018 08:37
[2018-05-16] MEDS: clonazePAM 0.5mg tab ORAL SCH ×2 (09:21→17:41)
[2018-05-16] MEDS: Carvedilol 6.25mg Tab ORAL SCH ×2 (09:21→20:59)
[2018-05-16] MEDS: Heparin 5000 units/ml inj SUBQ SCH ×2 (09:23→21:00)
[2018-05-16 12:00] VITALS: BP 132/63
--- NOTE | 2018-05-16 12:31 | Pulmonology Progress Note ---
Assessment/Plan Problems: (1) UTI (urinary tract infection) (2) Episode of generalized weakness (3) Anemia (4) HTN (hypertension) (5) Hypothyroidism (6) CAD (coronary artery disease) (7) Diabetes mellitus Assessment/Plan no new complains improving cultures still pending sliding scale psych to follow pt/ot check T3, T4 and TSH. dvt prophylaxis. Subjective ROS Limited/Unobtainable: No Allergies: Coded Allergies: AMPICILLIN (Verified Allergy, Unknown, 12/02/15) CODEINE (Verified Allergy, Unknown, 12/02/15) NSAIDS (NON-STEROIDAL ANTI-INFLAMMA (Verified Allergy, Unknown, 12/02/15) PEANUT (Verified Allergy, Unknown, 12/02/15) PENICILLINS (Verified Allergy, Unknown, 12/02/15) Objective Last 24 Hour Vital Signs Date Time Temp Pulse Resp B/P (MAP) Pulse Ox O2 Delivery O2 Flow Rate FiO2 05/16/18 09:21 88 136/58 05/16/18 09:00 Room Air 05/16/18 08:00 98.9 88 20 136/58 (84) 98 05/16/18 04:00 98.2 71 20 145/77 (99) 99 05/15/18 23:58 98.0 75 20 155/84 (107) 100 05/15/18 21:16 86 139/55 05/15/18 21:00 Room Air 05/15/18 19:43 99.0 86 20 139/55 (83) 98 05/15/18 16:00 98.4 75 18 120/61 (80) 99 Intake and Output 05/15/18 05/16/18 18:59 06:59 Intake Total 720 ml Balance 720 ml Intake Oral 720 ml # Voids 4 3 Objective General Appearance: WD/WN Lines, tubes and drains: peripheral HEENT: normocephalic, atraumatic Neck: non-tender, supple Respiratory/Chest: chest wall non-tender, lungs clear Breasts: no masses Cardiovascular/Chest: normal peripheral pulses Abdomen: normal bowel sounds, non tender Extremities: normal range of motion Skin Exam: normal pigmentation Laboratory Tests 05/16/18 06:07: White Blood Count 4.3L, Red Blood Count 3.86L, Hemoglobin 10.3L, Hematocrit 31.8L, Mean Corpuscular Volume 83, Mean Corpuscular Hemoglobin 26.6L, Mean Corpuscular Hemoglobin Concent 32.2, Red Cell Distribution Width 14.4, Platelet Count 225, Mean Platelet Volume 5.9L, Neutrophils (%) (Auto) 50.6, Lymphocytes ( %) (Auto) 29.9, Monocytes (%) (Auto) 10.2H, Eosinophils (%) (Auto) 8.1H, Basophils (%) (Auto) 1.1, Sodium Level 141, Potassium Level 3.5, Chloride Level 104, Carbon Dioxide Level 27, Anion Gap 11, Blood Urea Nitrogen 14, Creatinine 1.2, Estimat Glomerular Filtration Rate > 60, Glucose Level 131H, Calcium Level 9.2 Current Medications Medications (Trade) Dose Ordered Sig/Stephanie Route PRN Reason Start Time Stop Time Status Last Admin Dose Admin Acetaminophen (Tylenol) 650 mg Q4H PRN ORAL fever 05/11/18 19:45 06/10/18 19:44 Albuterol/ Ipratropium (Albuterol/ Ipratropium) 3 ml Q4H PRN HHN Shortness of Breath 05/11/18 19:45 05/16/18 19:44 Carvedilol (Coreg) 6.25 mg Q12HR ORAL 05/11/18 21:54 06/10/18 21:53 05/16/18 09:21 Clonazepam (KlonoPIN) 0.5 mg BID ORAL 05/11/18 21:55 05/18/18 21:54 05/16/18 09:21 Dextrose (Dextrose 50%) 25 ml Q30M PRN IV Hypoglycemia 05/11/18 20:00 06/10/18 19:48 Dextrose (Dextrose 50%) 50 ml Q30M PRN IV hypoglycemia 05/11/18 20:00 06/10/18 19:59 Heparin Sodium (Porcine) (Heparin 5000 units/ml) 5,000 units EVERY 12 HOURS SUBQ 05/12/18 09:00 06/11/18 08:59 05/16/18 09:23 Insulin Aspart (NovoLOG) BEFORE MEALS AND HS SUBQ 05/12/18 06:30 06/11/18 06:29 05/16/18 11:57 Levothyroxine Sodium (Synthroid) 300 mcg Q24H ORAL 05/12/18 06:30 06/11/18 06:29 05/16/18 06:01 Lorazepam (Ativan) 1 mg Q6H PRN ORAL For Anxiety 05/15/18 16:15 05/22/18 16:14 Mirtazapine (Remeron) 15 mg BEDTIME ORAL 05/11/18 21:54 06/10/18 21:53 05/15/18 21:16 Nitroglycerin (Ntg) 0.4 mg Q5M PRN SL Prn Chest Pain 05/11/18 19:45 06/10/18 19:44 Ondansetron HCl (Zofran) 4 mg Q6H PRN IVP Nausea & Vomiting 05/11/18 19:45 06/10/18 19:44 Polyethylene Glycol (Miralax) 17 gm DAILYPRN PRN ORAL Constipation 05/11/18 19:45 06/10/18 19:44 Risperidone (RisperDAL) 0.5 mg BID ORAL 05/15/18 18:00 06/14/18 17:59 05/16/18 09:21 Temazepam (Restoril) 15 mg HSPRN PRN ORAL Insomnia 05/11/18 19:45 05/18/18 19:44 05/11/18 22:03 Otto Scanlon MD May 16, 2018 12:30
[2018-05-16 16:00] VITALS: BP 138/67
--- NOTE | 2018-05-16 18:15 | Progress Note ---
DATE: 05/16/2018 SUBJECTIVE: The patient is a 67-year-old male patient with failure to thrive. The patient is very confused and disorganized with mood labile. He had no logical plan for self-care. He has some psychomotor agitation and irritability. That is why his attending has requested daily psychiatric consultation. MENTAL STATUS EXAMINATION: The patient is a 57-year-old male. Appearance is disheveled. Attitude, irritable and agitated. Affect, guarded and restricted. Intellect poor. Mood is depressed and anxious. Motor activity, psychomotor agitation. Attention is poor. Orientation x2. Speech is pressured. Thought process, disorganized and logical. Thought content, auditory hallucinations and paranoid delusions. Insight and judgment is poor. DIAGNOSIS: Major depression with psychotic features, rule out pseudodementia. PLAN: Treat the patient with Remeron 15 mg nightly, Klonopin 0.5 mg twice a day, and Risperdal 0.5 mg twice a day to reduce agitation. Provided him a 20 minutes of supportive psychotherapy and encouraged him to interact appropriately with staff. Also 20 minutes of cognitive behavioral therapy to help him identify his automatic negative thoughts and help him convert those negative thoughts to more positive thoughts to reduce depression, anxiety, and suicidality. A 20-minutes of cognitive behavioral therapy provided. Chart reviewed. Discussed with staff. Miguelina Cassidy M.D. DR: LALI JOB#: [id number] CC:
--- NOTE | 2018-05-16 19:38 | NUR ---
HAND-OFF: Report given to DEWEY Kumar.
--- NOTE | 2018-05-16 19:44 | NUR ---
NURSE NOTES: Patient in bed, awake. No complaint of pain or discomfort noted. Iv site noted. Bed in low and locked position. Bed alarm on. Call light is at bedside. Will continue to monitor.
[2018-05-16 20:11] VITALS: BP 159/88
--- NOTE | 2018-05-16 20:49 | Nephrology Progress Note ---
Assessment/Plan Assessment 1. Urinary tract infection and proteinuria, 2. Hypomagnesemia. 3. Lactic acidosis. 4. Anemia. 5. Hypertension. 6. Diabetes. Plan continue current iv monitoring renal function avoid NSAID replace electrolyte as need it Subjective Subjective no acute events Objective Objective Last 24 Hour Vital Signs Date Time Temp Pulse Resp B/P (MAP) Pulse Ox O2 Delivery O2 Flow Rate FiO2 05/16/18 20:11 97.6 77 19 159/88 (111) 98 05/16/18 16:00 98.3 80 19 138/67 (90) 97 05/16/18 12:00 98.8 86 20 132/63 (86) 98 05/16/18 09:21 88 136/58 05/16/18 09:00 Room Air 05/16/18 08:00 98.9 88 20 136/58 (84) 98 05/16/18 04:00 98.2 71 20 145/77 (99) 99 05/15/18 23:58 98.0 75 20 155/84 (107) 100 05/15/18 21:16 86 139/55 05/15/18 21:00 Room Air Intake and Output 05/15/18 05/16/18 19:00 07:00 Intake Total 720 ml Balance 720 ml Intake Oral 720 ml # Voids 4 3 Laboratory Tests 05/16/18 06:07: White Blood Count 4.3L, Red Blood Count 3.86L, Hemoglobin 10.3L, Hematocrit 31.8L, Mean Corpuscular Volume 83, Mean Corpuscular Hemoglobin 26.6L, Mean Corpuscular Hemoglobin Concent 32.2, Red Cell Distribution Width 14.4, Platelet Count 225, Mean Platelet Volume 5.9L, Neutrophils (%) (Auto) 50.6, Lymphocytes ( %) (Auto) 29.9, Monocytes (%) (Auto) 10.2H, Eosinophils (%) (Auto) 8.1H, Basophils (%) (Auto) 1.1, Sodium Level 141, Potassium Level 3.5, Chloride Level 104, Carbon Dioxide Level 27, Anion Gap 11, Blood Urea Nitrogen 14, Creatinine 1.2, Estimat Glomerular Filtration Rate > 60, Glucose Level 131H, Calcium Level 9.2 Height (Feet): 5 Height (Inches): 8.00 Weight (Pounds): 137 Objective HEAD AND NECK: No JVP. No LAD. No thyromegaly. Extraocular movement intact. Pupils are reactive to light and accommodation. LUNGS: Clear to auscultation. CARDIAC: Regular rate and rhythm. S1 and S2. No murmur. No rub. ABDOMEN: Soft, nontender, and nondistended. EXTREMITIES: No edema. No clubbing. No cyanosis. Ailyn Caputo MD May 16, 2018 20:49
--- NOTE | 2018-05-16 21:46 | NUR ---
NURSE NOTES: PATIENT REQUESTED SLEEPING MEDICATION. RESTORIL PRN WAS GIVEN ORDERED. WILL CONTINUE TO MONITOR.
[2018-05-17] VITALS (9 sets, daily range): BP systolic 138–201; BP diastolic 70–107
--- NOTE | 2018-05-17 01:12 | NUR ---
NURSE NOTES: PATIENT AWAKE, REQUESTED FOR ATIVAN, ATIVAN PRN WAS GIVEN ORDERED. WILL CONTINUE TO MONITOR.
--- NOTE | 2018-05-17 01:30 | Progress Note ---
DATE: 05/16/2018 NOTE: POOR AUDIO QUALITY TREATING ATTENDING PHYSICIAN: Wes Ramirez D.O. SUBJECTIVE: This is a 67-year-old male patient with increased paranoid schizophrenia. The patient continues to remain very . He remains very helpless and hopeless. He denies any suicidal or homicidal thoughts of ideation. The patient . Continued to encourage the patient to participate in treatment milieu and continue . The patient is alert and oriented to person and place. Mood dysphoric. Affect blunted. Thought process, disorganized. He has poor attention and concentration. Poor insight, judgment, and impulse control. PLAN: This clinician assessed this patient. Provided the patient with reality orientation, supportive psychotherapy, cognitive function. The patient is confused and disoriented. The patient is oriented to person, place, time, and situation. and able to communicate . Continued to encourage the emotional strength minimal thought process, minimal thought and positive thoughts, encouraging and helplessness with depression. Plan is to maintain medication compliance. relaxation, and positive coping skills continue with behavioral management. This clinician has reviewed the patient's chart. Discussed treatment with treatment team. Psychotherapy provided to this patient, 20 minutes. . Raven Sharp PsyD. : [place] JOB#: [id number] CC:
[2018-05-17] MEDS: NovoLOG Insulin Flexpen SUBQ SCH ×4 (05:41→21:27)
--- NOTE | 2018-05-17 07:07 | NUR ---
HAND-OFF: Report given to ANDREA CARRILLO RN.
[2018-05-17 07:26] LABS: EOSINOPHILS % (AUTO) 6.5 % (0.0-3.0); HEMATOCRIT 34.1 % (42.0-52.0); HEMOGLOBIN 11.1 G/DL (14.2-18.0); LYMPHOCYTES % (AUTO) 20.6 % (20.0-45.0); MEAN CORPUSCULAR VOLUME 82 FL (80-99); NEUTROPHILS % (AUTO) 62.9 % (45.0-75.0); PLATELET COUNT 221 K/UL (150-450); RED BLOOD COUNT 4.14 M/UL (4.70-6.10); WHITE BLOOD COUNT 5.4 K/UL (4.8-10.8)
[2018-05-17 07:30] LABS: ANION GAP 11 mmol/L (5-15); BLOOD UREA NITROGEN 14 mg/dL (7-18); CALCIUM 10.2 MG/DL (8.5-10.1); CARBON DIOXIDE 25 MMOL/L (21-32); CHLORIDE 103 MMOL/L (98-107); CREATININE 1.1 MG/DL (0.55-1.30); POTASSIUM 3.9 MMOL/L (3.5-5.1); SODIUM 139 MMOL/L (136-145)
[2018-05-17] MEDS: clonazePAM 0.5mg tab ORAL SCH ×2 (09:07→17:09)
[2018-05-17] MEDS: Carvedilol 6.25mg Tab ORAL SCH ×2 (09:08→20:47)
[2018-05-17] MEDS: Heparin 5000 units/ml inj SUBQ SCH ×2 (09:09→20:49)
--- NOTE | 2018-05-17 10:04 | Infectious Diseases Prog Note ---
Assessment/Plan Assessment/Plan Abx: IV Vancomycin 05/11- Zosyn x1 05/11 Aztreonam 05/11 Assessment: Lactic acidosis, SP- suspect 2ry to dehydration- doubt sepsis. No evidence of active infectious process Afebrile No leukocytosis -05/11 u.a wbc 2-4, nit neg, leuk +1; repaet u/a neg;ucx NTD -CXR" No acute process WEN, SP FTT HTN COPD hypothyroidism DM traumatic brain injury w/ resultant SDH paranoid schizophrenia anemia Plan: - Monitor off abx as clinically stable - 05/14/18 SP empiric IV Vancomycin #4 and Aztreonam #4 - Ok to d/c to SNF off abx -Monitor CBC/CMP, temperatures -aspiration precautions Will continue to follow along with you. Subjective Allergies: Coded Allergies: AMPICILLIN (Verified Allergy, Unknown, 12/02/15) CODEINE (Verified Allergy, Unknown, 12/02/15) NSAIDS (NON-STEROIDAL ANTI-INFLAMMA (Verified Allergy, Unknown, 12/02/15) PEANUT (Verified Allergy, Unknown, 12/02/15) PENICILLINS (Verified Allergy, Unknown, 12/02/15) Subjective ABILIO Afebrile No leukocytosis Objective Vital Signs Last 24 Hour Vital Signs Date Time Temp Pulse Resp B/P (MAP) Pulse Ox O2 Delivery O2 Flow Rate FiO2 05/17/18 09:08 72 138/70 05/17/18 08:00 98.4 72 20 138/70 (92) 97 05/17/18 06:24 79 154/92 (112) 05/17/18 04:20 98.3 75 19 175/97 (123) 100 05/17/18 00:04 98.2 76 19 151/79 (103) 98 05/16/18 21:19 Room Air 05/16/18 20:59 77 159/88 05/16/18 20:11 97.6 77 19 159/88 (111) 98 05/16/18 16:00 98.3 80 19 138/67 (90) 97 05/16/18 12:00 98.8 86 20 132/63 (86) 98 Height (Feet): 5 Height (Inches): 8.00 Weight (Pounds): 137 Objective GEN: NAD, Laying in bed CARDIOVASCULAR: No murmur. LUNGS: Poor air exchange. ABDOMEN: Bowel sounds distant. NEUROLOGIC: The patient moves all extremities, slightly weak. Laboratory Tests Test 05/17/18 04:45 White Blood Count 5.4 K/UL (4.8-10.8) Red Blood Count 4.14 M/UL (4.70-6.10) L Hemoglobin 11.1 G/DL (14.2-18.0) L Hematocrit 34.1 % (42.0-52.0) L Mean Corpuscular Volume 82 FL (80-99) Mean Corpuscular Hemoglobin 26.8 PG (27.0-31.0) L Mean Corpuscular Hemoglobin Concent 32.5 G/DL (32.0-36.0) Red Cell Distribution Width 15.0 % (11.6-14.8) H Platelet Count 221 K/UL (150-450) Mean Platelet Volume 5.9 FL (6.5-10.1) L Neutrophils (%) (Auto) 62.9 % (45.0-75.0) Lymphocytes (%) (Auto) 20.6 % (20.0-45.0) Monocytes (%) (Auto) 9.0 % (1.0-10.0) Eosinophils (%) (Auto) 6.5 % (0.0-3.0) H Basophils (%) (Auto) 1.0 % (0.0-2.0) Sodium Level 139 MMOL/L (136-145) Potassium Level 3.9 MMOL/L (3.5-5.1) Chloride Level 103 MMOL/L (98-107) Carbon Dioxide Level 25 MMOL/L (21-32) Anion Gap 11 mmol/L (5-15) Blood Urea Nitrogen 14 mg/dL (7-18) Creatinine 1.1 MG/DL (0.55-1.30) Estimat Glomerular Filtration Rate > 60 mL/min (>60) Glucose Level 213 MG/DL (74-106) H Calcium Level 10.2 MG/DL (8.5-10.1) H Current Medications Medications (Trade) Dose Ordered Sig/Stephanie Route PRN Reason Start Time Stop Time Status Last Admin Dose Admin Acetaminophen (Tylenol) 650 mg Q4H PRN ORAL fever 05/11/18 19:45 06/10/18 19:44 Carvedilol (Coreg) 6.25 mg Q12HR ORAL 1/22/19 21:54 06/10/18 21:53 05/17/18 09:08 Clonazepam (KlonoPIN) 0.5 mg BID ORAL 05/11/18 21:55 05/18/18 21:54 05/17/18 09:07 Clonidine HCl (Catapres Tab) 0.1 mg Q8H PRN ORAL For High Blood Pressure 05/17/18 07:30 06/16/18 07:29 Dextrose (Dextrose 50%) 25 ml Q30M PRN IV Hypoglycemia 05/11/18 20:00 06/10/18 19:48 Dextrose (Dextrose 50%) 50 ml Q30M PRN IV hypoglycemia 05/11/18 20:00 06/10/18 19:59 Heparin Sodium (Porcine) (Heparin 5000 units/ml) 5,000 units EVERY 12 HOURS SUBQ 05/12/18 09:00 06/11/18 08:59 05/17/18 09:09 Insulin Aspart (NovoLOG) BEFORE MEALS AND HS SUBQ 05/12/18 06:30 06/11/18 06:29 05/17/18 05:41 Levothyroxine Sodium (Synthroid) 300 mcg Q24H ORAL 05/12/18 06:30 06/11/18 06:29 05/17/18 05:40 Lorazepam (Ativan) 1 mg Q6H PRN ORAL For Anxiety 05/15/18 16:15 05/22/18 16:14 05/17/18 01:01 Mirtazapine (Remeron) 15 mg BEDTIME ORAL 05/11/18 21:54 06/10/18 21:53 05/16/18 20:59 Nitroglycerin (Ntg) 0.4 mg Q5M PRN SL Prn Chest Pain 05/11/18 19:45 06/10/18 19:44 Ondansetron HCl (Zofran) 4 mg Q6H PRN IVP Nausea & Vomiting 05/11/18 19:45 06/10/18 19:44 Polyethylene Glycol (Miralax) 17 gm DAILYPRN PRN ORAL Constipation 05/11/18 19:45 06/10/18 19:44 Risperidone (RisperDAL) 0.5 mg BID ORAL 05/15/18 18:00 06/14/18 17:59 05/17/18 09:08 Temazepam (Restoril) 15 mg HSPRN PRN ORAL Insomnia 05/11/18 19:45 05/18/18 19:44 05/16/18 21:46 Asad Ovalles MD May 17, 2018 10:04
--- NOTE | 2018-05-17 10:30 | Progress Note ---
DATE: 05/17/2018 NOTE: "POOR AUDIO QUALITY" SUBJECTIVE: This is a 67-year-old male patient with failure to thrive. The patient is very confused and disorganized. He has psychomotor agitation and irritability. He also has increased depression, anxiety, and confusion. That is why, his attending has requested daily psychiatric consultation to prevent decline in his cognition. MENTAL STATUS EXAMINATION: A 67-year-old male. Appearance is disheveled. Attitude, irritable and agitated. Affect, guarded and restricted. Intellect poor. Mood, depressed and anxious. Motor activity, psychomotor agitation. Attention span is poor. Orientation x2. Speech is low volume and slurred. Thought process, disorganized and illogical. Thought content, auditory hallucinations and paranoid delusions. Insight and judgment is poor. DIAGNOSIS: Major depressive disorder, severe, recurrent, with psychotic features. PLAN: Continue titrating up on this patient's mood-stabilizers and this patient to prevent any further decline in his cognition and to improve his cognition. Twenty minutes of cognitive behavioral therapy was provided to this patient to help him identify his automatic negative thoughts and convert those negative thoughts to more positive thoughts to reduce depression, anxiety, and suicidality and help him to have more adaptive behavioral pattern. I would like to thank Dr. Wes Ramirez for this interesting consultation. Chart was reviewed. Discussed with staff. He was seen and assessed in his room. Miguelina Cassidy M.D. DR: Anthony JOB#: [id number] CC:
--- NOTE | 2018-05-17 13:40 | General Progress Note ---
Assessment/Plan Problem List: (1) UTI (urinary tract infection) ICD Codes: N39.0 - Urinary tract infection, site not specified SNOMED: 49817388 (2) Diabetes mellitus ICD Codes: E11.9 - Type 2 diabetes mellitus without complications SNOMED: 02689539 (3) HTN (hypertension) ICD Codes: I10 - Essential (primary) hypertension SNOMED: 33109237 (4) Anemia ICD Codes: D64.9 - Anemia, unspecified SNOMED: 000774256 (5) Episode of generalized weakness ICD Codes: R53.1 - Weakness SNOMED: 55838117 Status: stable, progressing Assessment/Plan pt diet abx bs control dc if clear Subjective Constitutional: Reports: weakness Allergies: Coded Allergies: AMPICILLIN (Verified Allergy, Unknown, 12/02/15) CODEINE (Verified Allergy, Unknown, 12/02/15) NSAIDS (NON-STEROIDAL ANTI-INFLAMMA (Verified Allergy, Unknown, 12/02/15) PEANUT (Verified Allergy, Unknown, 12/02/15) PENICILLINS (Verified Allergy, Unknown, 12/02/15) All Systems: reviewed and negative except above Subjective sleepy calm Objective Last 24 Hour Vital Signs Date Time Temp Pulse Resp B/P (MAP) Pulse Ox O2 Delivery O2 Flow Rate FiO2 05/17/18 09:08 72 138/70 05/17/18 09:00 Room Air 05/17/18 08:00 98.4 72 20 138/70 (92) 97 05/17/18 06:24 79 154/92 (112) 05/17/18 04:20 98.3 75 19 175/97 (123) 100 05/17/18 00:04 98.2 76 19 151/79 (103) 98 05/16/18 21:19 Room Air 05/16/18 20:59 77 159/88 05/16/18 20:11 97.6 77 19 159/88 (111) 98 05/16/18 16:00 98.3 80 19 138/67 (90) 97 Intake and Output 05/16/18 05/17/18 19:00 07:00 Intake Total 840 ml 240 ml Balance 840 ml 240 ml Intake Oral 840 ml 240 ml # Voids 6 3 Laboratory Tests 05/17/18 04:45: White Blood Count 5.4, Red Blood Count 4.14L, Hemoglobin 11.1L, Hematocrit 34.1L , Mean Corpuscular Volume 82, Mean Corpuscular Hemoglobin 26.8L, Mean Corpuscular Hemoglobin Concent 32.5, Red Cell Distribution Width 15.0H, Platelet Count 221, Mean Platelet Volume 5.9L, Neutrophils (%) (Auto) 62.9, Lymphocytes (%) (Auto) 20.6, Monocytes (%) (Auto) 9.0, Eosinophils (%) (Auto) 6.5H, Basophils (%) (Auto) 1.0, Sodium Level 139, Potassium Level 3.9, Chloride Level 103, Carbon Dioxide Level 25, Anion Gap 11, Blood Urea Nitrogen 14, Creatinine 1.1, Estimat Glomerular Filtration Rate > 60, Glucose Level 213H, Calcium Level 10.2H Height (Feet): 5 Height (Inches): 8.00 Weight (Pounds): 137 General Appearance: lethargic EENT: normal ENT inspection Neck: normal alignment Cardiovascular: normal peripheral pulses, normal rate, regular rhythm Respiratory/Chest: chest wall non-tender, lungs clear, normal breath sounds Abdomen: normal bowel sounds, non tender, soft Extremities: normal inspection Edema: no edema noted Arm (L), no edema noted Arm (R), no edema noted Leg (L), no edema noted Leg (R), no edema noted Pedal (L), no edema noted Pedal (R), no edema noted Generalized Neurologic: motor weakness Skin: normal pigmentation, warm/dry Wes Ramirez DO May 17, 2018 13:40
--- NOTE | 2018-05-17 13:41 | NUR ---
RD ASSESSMENT & RECOMMENDATIONS SEE CARE ACTIVITY FOR COMPLETE ASSESSMENT DAILY ESTIMATED NEEDS: Needs based on diabetes, possible wt loss/ 62kg 28-33 kcals/kg 1507-1590 total kcals 1-1.5 g protein/kg 62-93 g total protein 25-30 mL/kg 3177-8338 total fluid mLs NUTRITION DIAGNOSIS: (1) Altered nutrition related lab values R/T DM2, clinical condition as evidenced by elev BG and POC glu (225-312), A1C of 7.1 on 03/23/18, low mag (1.1). (2) Inadequate energy intake R/T decreased appetite as evidenced by pt admitted w/ FTT dx, possible significant wt loss of 21 lbs/13.3% in 5 months. CURRENT DIET: CCHO MED PO DIET RECOMMENDATIONS: CCHO MED/ texture as tolerated + Glucerna 1 tetra bridget TID ADDITIONAL RECOMMENDATIONS: * Calibrated bedscale wt for accurate CBW * Weekly wt monitoring given possible recent significant wt loss * Consider Calorie Count x 48 hrs- good po intake noted * MVI x 1 as supplement * Monitor lytes, replete as needed (low mag 1.1, no updated level)
--- NOTE | 2018-05-17 14:58 | Pulmonology Progress Note ---
Assessment/Plan Problems: (1) UTI (urinary tract infection) (2) Episode of generalized weakness (3) Anemia (4) HTN (hypertension) (5) Hypothyroidism (6) CAD (coronary artery disease) (7) Diabetes mellitus Assessment/Plan no new complains improving cultures still pending sliding scale psych to follow pt/ot check T3, T4 and TSH. dvt prophylaxis. Subjective ROS Limited/Unobtainable: No Constitutional: Reports: no symptoms HEENT: Repors: no symptoms Allergies: Coded Allergies: AMPICILLIN (Verified Allergy, Unknown, 12/02/15) CODEINE (Verified Allergy, Unknown, 12/02/15) NSAIDS (NON-STEROIDAL ANTI-INFLAMMA (Verified Allergy, Unknown, 12/02/15) PEANUT (Verified Allergy, Unknown, 12/02/15) PENICILLINS (Verified Allergy, Unknown, 12/02/15) Objective Last 24 Hour Vital Signs Date Time Temp Pulse Resp B/P (MAP) Pulse Ox O2 Delivery O2 Flow Rate FiO2 05/17/18 12:00 97.0 87 20 150/91 (110) 98 05/17/18 09:08 72 138/70 05/17/18 09:00 Room Air 05/17/18 08:00 98.4 72 20 138/70 (92) 97 05/17/18 06:24 79 154/92 (112) 05/17/18 04:20 98.3 75 19 175/97 (123) 100 05/17/18 00:04 98.2 76 19 151/79 (103) 98 05/16/18 21:19 Room Air 05/16/18 20:59 77 159/88 05/16/18 20:11 97.6 77 19 159/88 (111) 98 05/16/18 16:00 98.3 80 19 138/67 (90) 97 Intake and Output 05/16/18 05/17/18 19:00 07:00 Intake Total 840 ml 240 ml Balance 840 ml 240 ml Intake Oral 840 ml 240 ml # Voids 6 3 Objective General Appearance: WD/WN Lines, tubes and drains: peripheral HEENT: normocephalic, atraumatic Neck: non-tender, supple Respiratory/Chest: chest wall non-tender, lungs clear Breasts: no masses Cardiovascular/Chest: normal peripheral pulses Abdomen: normal bowel sounds, non tender Extremities: normal range of motion Skin Exam: normal pigmentation Laboratory Tests 05/17/18 04:45: White Blood Count 5.4, Red Blood Count 4.14L, Hemoglobin 11.1L, Hematocrit 34.1L , Mean Corpuscular Volume 82, Mean Corpuscular Hemoglobin 26.8L, Mean Corpuscular Hemoglobin Concent 32.5, Red Cell Distribution Width 15.0H, Platelet Count 221, Mean Platelet Volume 5.9L, Neutrophils (%) (Auto) 62.9, Lymphocytes (%) (Auto) 20.6, Monocytes (%) (Auto) 9.0, Eosinophils (%) (Auto) 6.5H, Basophils (%) (Auto) 1.0, Sodium Level 139, Potassium Level 3.9, Chloride Level 103, Carbon Dioxide Level 25, Anion Gap 11, Blood Urea Nitrogen 14, Creatinine 1.1, Estimat Glomerular Filtration Rate > 60, Glucose Level 213H, Calcium Level 10.2H Current Medications Medications (Trade) Dose Ordered Sig/Stephanie Route PRN Reason Start Time Stop Time Status Last Admin Dose Admin Acetaminophen (Tylenol) 650 mg Q4H PRN ORAL fever 05/11/18 19:45 06/10/18 19:44 Carvedilol (Coreg) 6.25 mg Q12HR ORAL 05/11/18 21:54 06/10/18 21:53 05/17/18 09:08 Clonazepam (KlonoPIN) 0.5 mg BID ORAL 05/11/18 21:55 05/18/18 21:54 05/17/18 09:07 Clonidine HCl (Catapres Tab) 0.1 mg Q8H PRN ORAL For High Blood Pressure 05/17/18 07:30 06/16/18 07:29 Dextrose (Dextrose 50%) 25 ml Q30M PRN IV Hypoglycemia 05/11/18 20:00 06/10/18 19:48 Dextrose (Dextrose 50%) 50 ml Q30M PRN IV hypoglycemia 05/11/18 20:00 06/10/18 19:59 Heparin Sodium (Porcine) (Heparin 5000 units/ml) 5,000 units EVERY 12 HOURS SUBQ 05/12/18 09:00 06/11/18 08:59 05/17/18 09:09 Insulin Aspart (NovoLOG) BEFORE MEALS AND HS SUBQ 05/12/18 06:30 06/11/18 06:29 05/17/18 13:00 Levothyroxine Sodium (Synthroid) 300 mcg Q24H ORAL 05/12/18 06:30 06/11/18 06:29 05/17/18 05:40 Lorazepam (Ativan) 1 mg Q6H PRN ORAL For Anxiety 05/15/18 16:15 05/22/18 16:14 05/17/18 01:01 Mirtazapine (Remeron) 15 mg BEDTIME ORAL 05/11/18 21:54 06/10/18 21:53 05/16/18 20:59 Nitroglycerin (Ntg) 0.4 mg Q5M PRN SL Prn Chest Pain 05/11/18 19:45 06/10/18 19:44 Ondansetron HCl (Zofran) 4 mg Q6H PRN IVP Nausea & Vomiting 05/11/18 19:45 06/10/18 19:44 Polyethylene Glycol (Miralax) 17 gm DAILYPRN PRN ORAL Constipation 05/11/18 19:45 06/10/18 19:44 Risperidone (RisperDAL) 0.5 mg BID ORAL 05/15/18 18:00 06/14/18 17:59 05/17/18 09:08 Temazepam (Restoril) 15 mg HSPRN PRN ORAL Insomnia 05/11/18 19:45 05/18/18 19:44 05/16/18 21:46 Otto Scanlon MD May 17, 2018 14:58
--- NOTE | 2018-05-17 15:11 | NUR ---
*-* DISCHARGE*-* PATIENT DISCHARGE TO: [facility] ROOM#109-[id number] T:[phone] FOR NURSE TO NURSE REPORT [facility] HAS BEEN ARRANGED FOR FILM CRITIC AT [address] DONIS [id number]
--- NOTE | 2018-05-17 18:16 | NUR ---
NURSE NOTES: patient was being prepared for discharge, given call to son regarding transfer, given report to DEWEY Whittaker from [place] where pt came from, and given report to [facility] but at checking of VVSS, pt had BP 201/107, given clonidine 0.1 as ordered PRN, and given another call to DEWEY Whittaker, who said facility will only accept pt after h has his BP stabilized. Notified charge nurse dr. James Banda and son.
--- NOTE | 2018-05-17 19:00 | NUR ---
NURSE NOTES: received order from dr. henning to recheck BP, call dr. Steinberg with result and see what he says.
--- NOTE | 2018-05-17 19:35 | NUR ---
HAND-OFF: Report given to DEWEY Kumar.
--- NOTE | 2018-05-17 20:20 | NUR ---
NURSE NOTES: NOTIFIED DR. CORRAL REGARDING PATIENT BP 142/78 HR 80, DR. CORRAL STATED TO CONTACT DR. ALLEN FOR CARDIO CONSULT AND IF IT'S OKAY TO DISCHARGE PATIENT. NURSE NOTIFIED DR. ALLEN AND DR. ALLEN STATED THAT HE WILL COME SEE THE PATIENT. CHARGE NURSE AWARE.
--- NOTE | 2018-05-17 20:22 | NUR ---
NURSE NOTES: PATIENT IN BED, ASLEEP, AROUSABLE TO NAME. IV IN PLACE. NO S/S DISTRESS OR PAIN NOTED. BED IN LOWEST POSITION, CALL LIGHT WITHIN REACH, BED ALARM ON. WILL CONTINUE TO MONITOR.
--- NOTE | 2018-05-17 20:41 | NUR ---
NURSE NOTES: PATIENT SEEN BY DR. ALLEN AND PATIENT CLEARED FOR DISCHARGE. CHARGE NURSE AWARE. NOTIFIED [facility] AND ETA IS 1 HOUR.
--- NOTE | 2018-05-17 23:36 | NUR ---
DISCHARGE NURSE NOTES: PATIENT DISCHARGED, STABLE CONDITION. LEFT VIA AMBULANCE. DISCHARGE PACKET GIVEN TO AMBULANCE PERSONNEL. PATIENT ONLY HAD WATCH ON BELONGINGS LIFT, LEFT WITH WATCH ON PATIENT. IV ACCESS REMOVED. ID BAND REMOVED.
--- NOTE | 2018-05-17 23:47 | Cardiology Progress Note ---
Assessment/Plan Assessment/Plan The patient is seen and examined, full consult note will be dictated shortly. Objective Last 24 Hour Vital Signs Date Time Temp Pulse Resp B/P (MAP) Pulse Ox O2 Delivery O2 Flow Rate FiO2 05/17/18 21:35 Room Air 05/17/18 20:47 80 142/78 05/17/18 20:23 97.0 80 18 142/78 (99) 100 05/17/18 18:13 98 201/107 (138) 05/17/18 18:13 201/107 05/17/18 16:00 98.1 87 20 157/100 (119) 98 05/17/18 12:00 97.0 87 20 150/91 (110) 98 05/17/18 09:08 72 138/70 05/17/18 09:00 Room Air 05/17/18 08:00 98.4 72 20 138/70 (92) 97 05/17/18 06:24 79 154/92 (112) 05/17/18 04:20 98.3 75 19 175/97 (123) 100 05/17/18 00:04 98.2 76 19 151/79 (103) 98 Intake and Output 05/16/18 05/17/18 19:00 07:00 Intake Total 840 ml 240 ml Balance 840 ml 240 ml Intake Oral 840 ml 240 ml # Voids 6 3 Laboratory Tests Test 05/17/18 04:45 White Blood Count 5.4 K/UL (4.8-10.8) Red Blood Count 4.14 M/UL (4.70-6.10) L Hemoglobin 11.1 G/DL (14.2-18.0) L Hematocrit 34.1 % (42.0-52.0) L Mean Corpuscular Volume 82 FL (80-99) Mean Corpuscular Hemoglobin 26.8 PG (27.0-31.0) L Mean Corpuscular Hemoglobin Concent 32.5 G/DL (32.0-36.0) Red Cell Distribution Width 15.0 % (11.6-14.8) H Platelet Count 221 K/UL (150-450) Mean Platelet Volume 5.9 FL (6.5-10.1) L Neutrophils (%) (Auto) 62.9 % (45.0-75.0) Lymphocytes (%) (Auto) 20.6 % (20.0-45.0) Monocytes (%) (Auto) 9.0 % (1.0-10.0) Eosinophils (%) (Auto) 6.5 % (0.0-3.0) H Basophils (%) (Auto) 1.0 % (0.0-2.0) Sodium Level 139 MMOL/L (136-145) Potassium Level 3.9 MMOL/L (3.5-5.1) Chloride Level 103 MMOL/L (98-107) Carbon Dioxide Level 25 MMOL/L (21-32) Anion Gap 11 mmol/L (5-15) Blood Urea Nitrogen 14 mg/dL (7-18) Creatinine 1.1 MG/DL (0.55-1.30) Estimat Glomerular Filtration Rate > 60 mL/min (>60) Glucose Level 213 MG/DL (74-106) H Calcium Level 10.2 MG/DL (8.5-10.1) H Yonis Steinberg MD May 17, 2018 23:47
--- NOTE | 2018-05-18 03:15 | Consultation ---
DATE OF CONSULTATION: 05/16/2018 NOTE: POOR AUDIO PSYCHOTHERAPY CONSULTATION PROGRESS NOTE CONSULTING PHYSICIAN: Raven Sharp PsyD. TREATING ATTENDING PHYSICIAN: Wes Ramirez D.O. HISTORY OF PRESENT ILLNESS: The patient is a 67-year-old male patient. The patient is helpless, dysphoric, and sleeping. The patient wants to be able to go home. He denies suicidal or homicidal thoughts of ideation. Denies any auditory or visual hallucinations. He has been cooperative with nursing staff. The patient is helpless and dysphoric. MENTAL STATUS EXAMINATION: Alert and oriented to person and place. His mood is dysphoric. Affect blunted. Thought process, disorganized. He has poor attention and concentration. Poor insight, judgment, and impulse control. . PLAN: This clinician assessed the patient. Provided the patient with reality orientation confused and disoriented. Oriented to person, place, time, and situation. He is confused and is disorganized provide the patient with supportive psychotherapy addressing the patient's negative and catastrophic thoughts and redirecting his negative thoughts medication compliance relaxation and positive coping skills psychotherapy was provided for this patient 20 minutes. This clinician has reviewed the patient's chart. Discussed treatment with treatment team. Raven Sharp PsyD. DR: BLAKE JOB#: [id number] CC:
--- NOTE | 2018-05-18 10:17 | Discharge Summary ---
Discharge Summary Discharge Summary _ DATE OF ADMISSION: 05/11/2018 DATE OF DISCHARGE: 05/17/2018 DISCHARGED BY:Dr. Ramirez REASON FOR ADMISSION: 67 years old male with past medical history of hypertension, COPD, diabetes mellitus, hypothyroidism, paranoid schizophrenia, history of intracranial hemorrhage, status post craniotomy, anemia , presented to emergency department for failure to thrive and poor oral intake. Upon evaluation vital signs revealed slightly elevated blood pressure 149/84. Laboratory workup revealed no leukocytosis, hemoglobin 10.9 hematocrit 24. BUN 19, creatinine 1.3. Glucose 194. Magnesium 1.1. Lactic acid 4.1. Albumin 3.5. Troponin negative. EKG revealed sinus rhythm , no acute ischemic changes. Urinalysis revealed +2 protein , +2 glucose , + 5 blood, positive leukocyte esterase, no pyuria, few bacteria. Chest x-ray revealed no acute cardiopulmonary pathology . Patient admitted for further management CONSULTANTS: diabetes territory manager Dr. Steinberg pulmonary Dr. Scanlon ID specialist Dr. Devlin tax clerk Dr. Caputo psychiatrist Dr. Cassidy HOSPITAL COURSE: Patient admitted to medical surgical floor and started on IV hydration. Patient was pancultured and started on empiric antibiotic for possible UTI. Blood sugar was managed with sliding scale of insulin. intermediate facility medications were resumed. Infectious disease specialist specialist followed. Urine culture was negative. Blood cultures were negative. Patient initially showed evidence of lactic acidosis, suspected to be secondary to dehydration , unlikely sepsis as per ID conclusion. No evidence of acute infectious process. Patient remained afebrile no leukocytosis. Lactic acidosis resolved. Patient status post empiric antibiotics for 4 days. ID specialist recommended to monitor patient off antibiotics . Patient remained clinically stable. Supplemental oxygen provided as needed to keep oximetry above 92%. Pulmonary toilet provided as needed. No evidence of respiratory distress. DVT prophylaxis provided. Strict aspiration precautions were maintained. Escalator Service Mechanic recommendation implemented in plan of care to achieve to optimize nutritional status. Consider colony count for 48 hours at the facility. Blood pressure was uncontrolled. Highest blood pressure reading 201/107. Cardiology consult was requested. Antihypertensive medication regimen was optimized to bring blood pressure under control. Blood pressures eventually stabilized with current antihypertensive regimen. Renal parameters and electrolytes were closely monitored. Magnesium corrected . Robotype Operator followed. Prior to discharge BUN from 19 down to 11 , creatinine from 1.3 down to 1.0. Robotype Operator recommended to avoid nephrotoxics, specifically nonsteroidal anti- inflammatory medications. Globin hematocrit were closely monitored with goal to keep hemoglobin above 7. Count remained stable. Prior to discharge hemoglobin 11.3, hematocrit 34. Fall precaution where maintained. Patient was working with physical therapist. Supportive care provided. Pain management was addressed as needed. Bowel regimen instituted. Psychiatrist closely followed and diagnosed patient with severe major depressive disorder ,recurrent with psychotic features. Psychiatric medication regimen was optimized to stabilize patient mood , prevent further decline in his cognition as well as improve his cognition. 20 minutes of cognitive behavioral therapy was provided. Infectious disease specialist clear for discharge patient to [facility] facility off antibiotic. Patient clinically stabilized and was ready for transfer back to [facility]. Recommended close nutritional support and calorie count at the facility. Maintain adequate hydration. FINAL DIAGNOSES: Severe protein calorie malnutrition Failure to thrive due to malnutrition and dehydration Acute kidney injury likely secondary to dehydration -resolved Lactic acidosis-resolved Hypomagnesemia-corrected Hypertension, uncontrolled, likely due to hypertensive emergency - resolved COPD Hypothyroidism Diabetes mellitus Dysphagia Traumatic brain injury, status post craniotomy Paranoid schizophrenia Anemia Severe major depressive disorder, recurrent, with psychotic feature. DISCHARGE MEDICATIONS: See Medication Reconciliation list. DISCHARGE INSTRUCTIONS: Patient was discharged to the [facility] facility. Follow up with medical doctor at the facility. I have been assigned to dictate discharge summary for this account. I was not involved in the patient's management. Esperanza Laws NP May 18, 2018 10:17
--- NOTE | 2018-05-18 23:45 | Progress Note ---
NOTE: POOR AUDIO PSYCHOTHERAPY CONSULTATION PROGRESS NOTE CONSULTING PHYSICIAN: Raven Sharp PsyD. TREATING ATTENDING PHYSICIAN: Wes Ramirez D.O. HISTORY OF PRESENT ILLNESS: The patient is a 67-year-old male patient who was admitted to the hospital due to confusion and disorientation, weakness, more cooperative today. The patient states today he is ready to go home. States that he wants to leave now. The patient has poor insight and judgement as he wanted to be able to go back home and stay at his home environment. Clinician assessed the patient. The patient is alert and oriented to person and place. Mood is anxious. Affect congruent. Thought process, disorganized. Thought content, confused. He has poor attention and concentration. Poor insight, judgment, and impulse control. PLAN: Provided the patient with: 1. Reality orientation, supportive psychotherapy, cognitive function, , confused and disoriented. Oriented to person, place, time, and situation. Provided the patient with supportive psychotherapy, which is he feels depressed and helpless. 2. Provide the patient with cognitive behavioral therapy to addressing the patient's feelings of helplessness and hopeless, . Encouraging the patient to redirecting the patient's negative thought process, skills. Encouraging the patient to participate in treatment milieu. Continue with behavioral management. This clinician has reviewed the patient's chart. Discussed the treatment with treatment team. Psychotherapy provided to this patient, 20 minutes. Raven Sharp PsyD. : Devaughn JOB#: [id number] CC:
== END 2018-05-17 23:35 | DRG 689 ==
LOC: EDBD 17:36 → EMR 19:11 → 4E 19:15 → EDBEDREQ 20:26
DX: N39.0 Urinary tract infection, site not specified (principal); E43 Unspecified severe protein-calorie malnutrition; E87.2 Acidosis; F20.0 Paranoid schizophrenia; N17.9 Acute kidney failure, unspecified; I16.1 Hypertensive emergency; F33.3 Major depressive disorder, recurrent, severe with psychotic symptoms; R62.7 Adult failure to thrive; Z68.20 Body mass index [BMI] 20.0-20.9, adult; R53.1 Weakness; I10 Essential (primary) hypertension; E03.9 Hypothyroidism, unspecified; E11.9 Type 2 diabetes mellitus without complications; E86.0 Dehydration; D64.9 Anemia, unspecified; E83.42 Hypomagnesemia; J44.9 Chronic obstructive pulmonary disease, unspecified; R13.10 Dysphagia, unspecified; Z87.820 Personal history of traumatic brain injury; Z98.890 Other specified postprocedural states; Z88.0 Allergy status to penicillin; Z88.6 Allergy status to analgesic agent; Z91.010 Allergy to peanuts; I25.10 Atherosclerotic heart disease of native coronary artery without angina pectoris
CPT/HCPCS: 36415; 71045; 80048; 80053; 80202; 81001; 81003; 82043; 82044; 82570; 82962; 83605; 83735; 84300; 84484; 85025; 87040; 87081; 87086; 93005; 96361; 96365; 97803; 99285; J1815

== ENCOUNTER 2020-04-19 11:57 | Emergency (ER) | payer MEDICARE, OTHER ==
[~2020-04-19] VITALS: Ht 170.2 cm; Wt 68.0 kg
[~2020-04-19 11:57] MED LIST changes: +ACETAMINOPHEN325 M1 ORAL; +BISACODYL10 M1 RC; +DOCUSATE SODIU100 MG ORAL; +METFORMIN HCL1000 M1 ORAL; +MIRTAZAPINE15 M3 ORAL; +SYNTHROID100 MCG ORAL
[2020-04-19 12:18] VITALS: BP 151/75
--- NOTE | 2020-04-19 12:19 | NUR ---
ED Nurse Note:pt. was BIBA from SNF with multiple falls dizziness and right sided neck and arm tightness, pt. is A/Ox2 skin is intact, placed on front desk monitor, VSS, no fever on arrival, was covid negative result this month
--- NOTE | 2020-04-19 13:01 | NUR ---
ED Nurse Note:blood and blood cultures sent to labs
[2020-04-19 13:24] LABS: BASOPHILS % (AUTO) 0.6 % (0.0-2.0); EOSINOPHILS % (AUTO) 2.4 % (0.0-3.0); HEMATOCRIT 30.9 % (42.0-52.0); HEMOGLOBIN 9.7 G/DL (14.2-18.0); LYMPHOCYTES % (AUTO) 12.9 % (20.0-45.0); MEAN CORPUSCULAR VOLUME 83 FL (80-99); MONOCYTES % (AUTO) 6.8 % (1.0-10.0); NEUTROPHILS % (AUTO) 77.3 % (45.0-75.0); PLATELET COUNT 198 K/UL (150-450); RED BLOOD COUNT 3.73 M/UL (4.70-6.10); RED CELL DISTRIBUTION WIDTH 16.1 % (11.6-14.8)
--- NOTE | 2020-04-19 13:25 | Emergency Room Report ---
History of Present Illness General Chief Complaint: Multiple Trauma/Fall Source: Patient, EMS (Matthew Cotto MD) Present Illness HPI Patient is a 69-year-old male presents for falls at his nursing facility. Patient reportedly had been falling from wheelchair multiple times.Patient was sent in from nursing facility. Apparently had been having increased abnormal eye movements after falling. Patient was weak to both lower extremities chronically and is chronically wheelchair-bound. 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 COVID-19 Screening: Negative COVID-19 COVID-19 Testing Source: nasal (Matthew Cotto MD) Patient History Reviewed Nursing Documentation: PMH: Agreed; PSxH: Agreed (Matthew Cotto MD) Nursing Documentation-PMH Hx Cardiac Problems: Yes Hx Hypertension: Yes Hx Pacemaker: No - HYPOTHYROIDISM Hx COPD: Yes Hx Diabetes: Yes Hx Cancer: No Hx Gastrointestinal Problems: Yes Hx Neurological Problems: Yes Hx Cerebrovascular Accident: Yes - subdural Hx Dysphasia: Yes (Matthew Cotto MD) Review of Systems All Other Systems: negative except mentioned in HPI (Matthew Cotto MD) Physical Exam Vital Signs Date Time Temp Pulse Resp B/P (MAP) Pulse Ox O2 Delivery O2 Flow Rate FiO2 04/19/20 12:00 99.3 90 15 151/75 (100) 97 Room Air Sp02 EP Interpretation: reviewed, normal General Appearance: normal inspection, alert, non-toxic, Chronically Ill Head: atraumatic ENT: normal ENT inspection, hearing grossly normal, normal voice Neck: normal inspection, supple, no bony tend, limited range of motion Respiratory: normal inspection, lungs clear, normal breath sounds, no respiratory distress, no retraction, no wheezing Cardiovascular #1: regular rate, rhythm, no edema Gastrointestinal: normal inspection, normal bowel sounds, non tender, soft, no guarding, no hernia Genitourinary: no CVA tenderness Musculoskeletal: normal inspection, back normal, normal range of motion Neurologic: alert, motor weakness - lower extremities, responsive, speech normal, normal inspection, other - lower extremity contractures Psychiatric: normal inspection, judgement/insight normal, mood/affect normal (Matthew Cotto MD) Medical Decision Making Diagnostic Impression: Primary Impression: Falls Additional Impression: Cervical arthritis ER Course Patient presented after falls. Differential diagnosis include was not limited to intracranial hemorrhage, fracture, head injury among others. Patient's imaging studies were performed and showed no evidence of acute traumatic process. CT of the cervical spine showed multilevel degenerative changes, CT of the head showed atrophic changes without evident intracranial hemorrhage. Patient's laboratory testing was essentially unremarkable. Patient will be sent back to his nursing facility. Patient is to return if any worsening condition or if any changes in status that are concerning. This report is dictated with [employer] software which may occasionally lead to discrepancies related to use of this software. Labs Test 04/19/20 13:00 04/19/20 13:30 White Blood Count 9.0 K/UL (4.8-10.8) Red Blood Count 3.73 M/UL (4.70-6.10) Hemoglobin 9.7 G/DL (14.2-18.0) Hematocrit 30.9 % (42.0-52.0) Mean Corpuscular Volume 83 FL (80-99) Mean Corpuscular Hemoglobin 26.0 PG (27.0-31.0) Mean Corpuscular Hemoglobin Concent 31.3 G/DL (32.0-36.0) Red Cell Distribution Width 16.1 % (11.6-14.8) Platelet Count 198 K/UL (150-450) Mean Platelet Volume 6.5 FL (6.5-10.1) Neutrophils (%) (Auto) 77.3 % (45.0-75.0) Lymphocytes (%) (Auto) 12.9 % (20.0-45.0) Monocytes (%) (Auto) 6.8 % (1.0-10.0) Eosinophils (%) (Auto) 2.4 % (0.0-3.0) Basophils (%) (Auto) 0.6 % (0.0-2.0) Prothrombin Time 11.4 SEC (9.30-11.50) Prothromb Time International Ratio 1.0 (0.9-1.1) Activated Partial Thromboplast Time 27 SEC (23-33) Sodium Level 135 MMOL/L (136-145) Potassium Level 4.2 MMOL/L (3.5-5.1) Chloride Level 99 MMOL/L (98-107) Carbon Dioxide Level 26 MMOL/L (21-32) Anion Gap 10 mmol/L (5-15) Blood Urea Nitrogen 25 mg/dL (7-18) Creatinine 1.3 MG/DL (0.55-1.30) Estimat Glomerular Filtration Rate 55.1 mL/min (>60) Glucose Level 211 MG/DL (74-106) Calcium Level 9.2 MG/DL (8.5-10.1) Total Bilirubin 0.2 MG/DL (0.2-1.0) Aspartate Amino Transf (AST/SGOT) 27 U/L (15-37) Alanine Aminotransferase (ALT/SGPT) 21 U/L (12-78) Alkaline Phosphatase 115 U/L (46-116) Troponin I 0.015 ng/mL (0.000-0.056) Total Protein 8.1 G/DL (6.4-8.2) Albumin 3.7 G/DL (3.4-5.0) Globulin 4.4 g/dL Albumin/Globulin Ratio 0.8 (1.0-2.7) Thyroid Stimulating Hormone (TSH) 1.158 uiU/mL (0.358-3.740) Urine Color Pale yellow Urine Appearance Clear Urine pH 5 (4.5-8.0) Urine Specific [place] 1.015 (1.005-1.035) Urine Protein 2+ (NEGATIVE) Urine Glucose (UA) 4+ (NEGATIVE) Urine Ketones Negative (NEGATIVE) Urine Blood Negative (NEGATIVE) Urine Nitrite Negative (NEGATIVE) Urine Bilirubin Negative (NEGATIVE) Urine Urobilinogen Normal MG/DL (0.0-1.0) Urine Leukocyte Esterase Negative (NEGATIVE) Urine RBC 0 /HPF (0 - 0) Urine WBC 0-2 /HPF (0 - 0) Urine Squamous Epithelial Cells Occasional /LPF Urine Bacteria Occasional /HPF (NONE) (Matthew Cotto MD) ER Course ADDENDUM. RECEIVED PRELIM BLOOD CULTURE RESULT ON 04/21/20 @ 0200 WHICH SHOWED GRAM POSITIVE RODS ATTEMPTED TO CALL [facility] BUT NO ANSWER. WILL ENDORSE TO ONCOMING ED PHYSICIAN FOR WELL-CHECK. WILL MAIL LETTER TO PATIENT'S REHAB FACILITY. (Teena Dang D.O.) Last Vital Signs Date Time Temp Pulse Resp B/P (MAP) Pulse Ox O2 Delivery O2 Flow Rate FiO2 04/19/20 12:18 99.3 90 15 151/75 97 Room Air Status: improved (Matthew Cotto MD) Disposition: HOME, SELF-CARE Condition: Stable Referrals: Wes Ramirez DO (PCP) Matthew Cotto MD Apr 19, 2020 13:25 Teena Dang D.O. Apr 21, 2020 02:12
[2020-04-19 13:27] LABS: CALCIUM 9.2 MG/DL (8.5-10.1); CREATININE 1.3 MG/DL (0.55-1.30); POTASSIUM 4.2 MMOL/L (3.5-5.1)
--- NOTE | 2020-04-19 13:35 | NUR ---
ED Nurse Note:pt. had CT head done and urine senrt to labs
[2020-04-19 13:39] LABS: ALBUMIN 3.7 G/DL (3.4-5.0); ALBUMIN/GLOBULIN RATIO 0.8 (1.0-2.7); BILIRUBIN,TOTAL 0.2 MG/DL (0.2-1.0)
--- NOTE | 2020-04-19 14:05 | Diagnostic Imaging Report ---
Indication: Neck pain, status post fall Technique: Spiral acquisitions obtained through the cervical spine. No IV contrast utilized. Multiplanar reconstructions were generated. Total dose length product 483 mGycm. CTDIvol(s) 20 mGy. Dose reduction achieved using automated exposure control. Comparison: none Findings: There is very slight posterior offset of C5 on C6, otherwise normal bony alignment. No prevertebral soft tissue swelling. There is mild flattening of the C4, C5, and C6 vertebral bodies which is probably developmental in nature. No acute fracture. No dislocation. There is degenerative narrowing of the anterior atlantoaxial joint. At C2-3, there is mild to moderate narrowing of the right neural foramen. There is mild broad-based posterior disc protrusion which results in borderline narrowing of the spinal canal. There is bilateral facet arthrosis. At C3-4, there is bilateral facet arthrosis. There is mild broad-based posterior disc protrusion, which results in borderline narrowing of the spinal canal. There is mild narrowing of the right neural foramen. At C4-5, there is mild bilateral facet arthrosis. No significant disc bulge or protrusion. There is mild narrowing of the right neural foramen. At C5-C6, there is a right lateral osteophyte which may impinge slightly upon the right lateral recess. There is severe narrowing of the right neural foramen and mild narrowing of the left neural foramen. There is mild degenerative disc narrowing At C6-7, there is a right lateral osteophyte which may impinge slightly upon the right side of the cord. There is bilateral facet arthrosis. At C7-T1, no significant disc bulge or protrusion, spinal stenosis, or neural foraminal stenosis. The included extraspinal soft tissues are unremarkable. Impression: No acute bony trauma Degenerative changes as detailed on a level by level basis above The CT scanner at [facility] is accredited by the [employer] and the scans are performed using protocols designed to limit radiation exposure to as low as reasonably achievable to attain images of sufficient resolution adequate for diagnostic evaluation.
--- NOTE | 2020-04-19 14:13 | Diagnostic Imaging Report ---
Indications: Head trauma, status post fall, abnormal eye movements, bilateral lower extremity weakness Technique: Spiral acquisitions obtained through the brain. Angled axial and coronal 5 x 5 mm slices were reconstructed. Total dose length product 1072 mGycm. CTDI vol(s) 53 mGy. Dose reduction achieved using automated exposure control Comparison: 04/06/2016 Findings: Again demonstrated is a large right convexity craniectomy defect with a prosthesis. Membrane with calcification deep to the prosthesis is unchanged, probably represents detached dura. There is age-related enlargement of the ventricles and extra axial CSF spaces. There is periventricular deep white matter chronic ischemic change. No acute intracranial hemorrhage or edema. No mass effect nor midline shift. There is encephalomalacia adjacent to the temporal horn of the right lateral ventricle. There is also encephalomalacia of the parasagittal posterior parietal lobe, likewise unchanged. There is evidence of prior bilateral cataract surgery. The visualized sinuses demonstrate mild mucosal thickening. The mastoids are clear. There is no significant interim change Impression: Postsurgical changes, as described Negative for acute intracranial bleed or mass effect Other chronic and age-related changes, as described The CT scanner at [facility] is accredited by the [employer] and the scans are performed using protocols designed to limit radiation exposure to as low as reasonably achievable to attain images of sufficient resolution adequate for diagnostic evaluation.
[2020-04-19 14:18] LABS: APPEARANCE,URINE CLEAR; BILIRUBIN, URINE NEGATIVE (NEGATIVE); COLOR,URINE PALE YELLOW; GLUCOSE, URINE (UA) 4+ (NEGATIVE); KETONES,URINE NEGATIVE (NEGATIVE); LEUKOCYTE ESTERASE ,URINE NEGATIVE (NEGATIVE); NITRITE,URINE NEGATIVE (NEGATIVE); PH,URINE 5 (4.5-8.0); PROTEIN,URINE 2+ (NEGATIVE); UROBILINOGEN,URINE NORMAL MG/DL (0.0-1.0)
[2020-04-19 16:48] VITALS: BP 146/69
[2020-04-19 18:20] VITALS: BP 146/69
--- NOTE | 2020-04-19 18:20 | NUR ---
ED Nurse Note:pt. was picked up by [facility] for transfer back to his rehab, report was called to SNF ,given to Jeremiah
== END 2020-04-19 18:20 ==
LOC: EDBD 11:57 → EDUNIT# 11:57 → EMR 13:13 → CANBEDREQ 14:42 → EMR 18:20
DX: G25.89 Other specified extrapyramidal and movement disorders (principal); Z91.81 History of falling; Z88.6 Allergy status to analgesic agent; Z88.0 Allergy status to penicillin; Z91.010 Allergy to peanuts; I10 Essential (primary) hypertension; E03.9 Hypothyroidism, unspecified; E11.9 Type 2 diabetes mellitus without complications; Z99.3 Dependence on wheelchair; Z86.73 Personal history of transient ischemic attack (TIA), and cerebral infarction without residual deficits; G93.89 Other specified disorders of brain; M47.812 Spondylosis without myelopathy or radiculopathy, cervical region
CPT/HCPCS: 36415; 70450; 72125; 80053; 81001; 84443; 84484; 85025; 85610; 85730; 87040; 93005; 99284